=== PATIENT | male | born 1940 | race Caucasian/White ===

== ENCOUNTER → 2018-01-06 07:43 | Outpatient (CLI) | payer MEDICARE, SELFPAY ==
--- NOTE | 2018-01-06 07:45 | CT_ITS ---
STUDY: CT ABDOMEN AND PELVIS WITH CONTRAST REASON FOR EXAM: Male, 77 years old. History of prostate cancer. RADIATION DOSAGE (If Supplied By Facility): CTDIvol = ( 21.81 ) mGy, DLP = ( 1178.48 ) mGycm TECHNIQUE: Transaxial images were obtained from the dome of the diaphragm to the symphysis pubis without oral contrast. 100 ml of Isovue 300 contrast was administered. Sagittal and coronal images were reconstructed. Individualized dose optimization techniques were used for this CT. COMPARISON: Comparison is made with prior study dated February 23, 2014. FINDINGS: Calcified granuloma in the right lower lobe. Coronary artery calcification. There is decreased attenuation of the liver consistent with steatosis. Normal gallbladder and extrahepatic biliary system. Normal spleen. Normal pancreas. Normal bilateral adrenal glands. Normal right kidney. Normal left kidney. Normal visualized stomach. Normal small intestine. There are multiple colonic diverticula consistent with diverticulosis. The appendix is visualized and appears normal. There is diffuse atherosclerotic calcification of the abdominal aorta, without a demonstrated aneurysm. Normal inferior vena cava. Normal retroperitoneum. The bladder is not completely distended at time of the examination although there is evidence of diffuse bladder wall thickening. Radiation seeds are seen within the prostate. Normal abdominal wall. There are diffuse degenerative changes of the visualized lumbar spine. CT/Abdomen/Pelvis WITH Contrast IMPRESSION: Diffuse bladder wall thickening. 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 Sigmoid diverticulosis. Electronically Signed: Sanju Nix MD at 14:04 EST Tel [phone], Service support ,
[2018-01-06 07:55] LABS: CREATININE FINGERSTICK 0.9 mg/dL (0.70-1.30); EGFR FINGERSTICK > 60.0000 mL/min (>60)
== END ==
PROVIDERS: Family Provider Internal Medicine; PCP Internal Medicine; Visit Provider Urology
DX: C61 Malignant neoplasm of prostate (principal)
CPT/HCPCS: 74177; Q9967

== ENCOUNTER 2018-01-25 10:28 | Observation (INO) | payer MEDICARE, SELFPAY ==
[2018-01-25] VITALS (10 sets, daily range): BP systolic 127–154; BP diastolic 80–96; PULSE 78–120; RESP 14–20; TEMP 36.8–37.5; O2SAT 95–98; BMI 35.7
--- NOTE | 2018-01-25 10:50 | EKG12_ITS ---
Test Reason : DYSRHYTHMIA Blood Pressure : / mmHG Vent. Rate : 068 BPM Atrial Rate : 068 BPM P-R Int : 186 ms QRS Dur : 156 ms QT Int : 414 ms P-R-T Axes : 007 032 021 degrees QTc Int : 440 ms Sinus rhythm with sinus arrhythmia with occasional Premature ventricular complexes Right bundle branch block Abnormal ECG Confirmed by RAN IVERSON ([id number]), editor city AALIYAH AVALOS ([id number]) on 01/28/2018 1:21:29 PM Referred By: SARA Confirmed By:RAN IVERSON
[2018-01-25 11:13] LABS: Absolute Lymphocyte Count 1.25 X10^3/ul (0.83-4.51); Basophil# 0.04 X10^3/uL; Basophil% 0.6 % (0-1); Eosinophil# 0.33 X10^3/uL; Eosinophils% 4.9 % (0-5); Hematocrit 44.9 % (40-54); Hemoglobin 15.7 g/dl (13.0-16.5); Lymphocyte # 1.25 X10^3/ul (4.0); Lymphocyte % 18.5 % (19-41); Mean Corpuscular Hgb 31.2 pg (27.0-32.0); Mean Corpuscular Volume 89.3 fL (80-94); Monocyte# 1.13 X10^3/uL; Monocyte% 16.7 % (0-10); Neutrophil # 4.01 X10^3/uL (2.7-7.7); Neutrophil % 59.3 % (47-70); Platelet Count 190 K/mm3 (150-450); RBC Distribution Width CV 13.4 % (11.6-14.6); RBC Distribution Width SD 43.7 fl (35.1-43.9); Red Blood Count 5.03 M/mm3 (4.6-6.2); White Blood Count 6.8 K/mm3 (4.4-11.0)
[2018-01-25 11:15] LABS: POSITIVE COUNT NO; POSITIVE DIFFERENTIAL NO; POSITIVE MORPHOLOGY NO
[2018-01-25] MEDS: Ipratropium/Albuterol Sulfate 3 ML AMPUL.NEB INHALATION (11:16)
[2018-01-25] MEDS: Albuterol 2.5 MG/3 ML VIAL.NEB. INHALATION ×5 (11:16→23:10)
[2018-01-25] MEDS: MethylPREDNISolone 125 MG/2 ML Vial IV (11:19)
[2018-01-25 11:30] LABS: Anion Gap 8 (5-15); BUN 14 mg/dL (7-18); Calcium,Total 8.7 mg/dL (8.5-10.1); Chloride 104 mmol/L (98-107); EST Glomerular Filtration Rate 77 mL/min (>60); Est Glom Filt Rate - Afr Amer 93 mL/min (>60); Glucose 103 mg/dL (74-106); Potassium 3.9 mmol/L (3.5-5.1); Sodium Level 141 mmol/L (136-145)
[2018-01-25] MEDS: 0.9% Normal Saline 1,000 ML 150 ML IV (11:30)
--- NOTE | 2018-01-25 14:03 | RAD_ITS ---
STUDY: X-RAY CHEST REASON FOR EXAM: Male, 77 years old. Shortness of breath and dyspnea. TECHNIQUE: PA and lateral views of the chest. COMPARISON: March 20, 2016. FINDINGS: Cardiac monitoring leads are present. The lungs are expanded. There is right basilar infrahilar airspace disease and/or atelectasis. This could represent pneumonia. There is perihilar interstitial thickening present in both lungs. There is no demonstrated pleural abnormality. Normal size heart. Normal mediastinum and james. There is prominence of the pulmonary hilar arteries with peripheral pulmonary vascular congestion. There is atherosclerotic calcification of the aortic arch with tortuosity. There is demineralization of the osseous structures. There is increased thoracic kyphosis. There appears be decreased height of several thoracic vertebral bodies probably secondary to mild compression fractures. There are multilevel degenerative changes of the thoracic spine. Normal visualized ribs, clavicles, and shoulders. There is no demonstrated abnormality of the visualized soft tissue structures of the upper abdomen. RAD/Chest PA and Lateral IMPRESSION: 1. Mild pulmonary congestion. 2. Questionable right-sided infrahilar airspace disease could represent pneumonia. Electronically Signed: Janet Romano MD at 15:31 EST , Service support ,
--- NOTE | 2018-01-25 14:42 | ED.VISSUMM ---
- ER Visit Summary Date of Service: 01/25/18 Chief Complaint: [Shortness of breath] History of Present Illness: The patient is a 77 M [presents to the emergency department with shortness of breath ?5 or 6 days. Patient does have a cough is been coughing some cream-colored sputum. Patient states that he initially started with symptoms of agitation and not been able sleep at night followed by cough. Patient does not think he has had a fever. Patient does describe some chest tightness. He has not had any body aches. Patient denies recent travel or surgery.] Physical Examination: [HEENT-PERRLA, EOMI. Cranial nerves II through XII grossly intact. TMs clear. Mucous membranes moist. No adenopathy. Cardiovascular-regular rate and rhythm without murmur or ectopy Lungs-decreased breath sounds bilaterally with expiratory wheezes in all lung mendoza. Patient is tachypneic. No accessory muscle use or retractions. Abdomen-normoactive bowel sounds, soft, nontender, no rebound or rigidity, no peritoneal signs. Extremities-intact ?4, normal range of motion, normal pulses, atraumatic] Test Results: [EKG shows sinus rhythm with no acute ST segment changes. CBC with it was normal. Chemistries unremarkable. Influenza was negative. Troponin was less than 0.02.] Emergency Department Course and Treatment: [Patient was medicated with DuoNeb aerosol followed by albuterol aerosols. Patient was given Solu-Medrol 125 mill grams IV. Chest x-ray obtained read by myself as hyperinflation and increased markings in the right middle lobe] Treatment Plan: [Patient continues to wheeze and was ordered another albuterol aerosol. Patient continues to feel dyspneic.] Disposition: [Admit] Impression: [Asthmatic bronchitis] This note was generated with [employer] dictation software. It may contain incorrect words, spelling, and punctuation that were not noted in review of the chart prior to signing ED Disposition - Plan for ED Patient: Chief Complaint: Shortness of Breath Referrals: Maureen Martinez DO [Primary Care Provider] -
--- NOTE | 2018-01-25 14:55 | NURSING ---
DR DORMAN FOR DR RUIZ
--- NOTE | 2018-01-25 15:42 | NURSING ---
MED SURG OBS ASTHMA, BRONCHITIS JEFFREYELETSKY
--- NOTE | 2018-01-25 17:19 | PCM.HP.STD ---
Problem List (1) Wheezing Status: Acute (2) Productive cough Status: Acute History of Present Illness Date of Admission: 01/25/18 Chief Complaint: Wheezing, productive cough, shortness of breath The patient is a 77 year old M was seen in the emergency room at [facility] with chief complaint of cough productive of green phlegm intermittently, wheezing, and some shortness of breath. Symptoms started on Saturday of this week. Patient denies any fever or chills. Patient has a history of asthma and uses a Symbicort inhaler but he does not use this daily, only intermittently. 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 Evaluation in the emergency room included a chest x-ray which showed a chronic scarred area in the right lung, CBC was unremarkable, chemistry profile was unremarkable. Patient's pulse ox on room air was 95%. Patient was given 2 aerosol treatments and IV Solu-Medrol, hospitalist service was called for admission, I interviewed the patient and he still appear to have marked expiratory wheezes bilaterally. Patient was walked in the holliday without oxygen but did not drop below 93%. Patient will be admitted for flareup of asthma and acute bacterial bronchitis. Past Medical History Past Medical History (Chronic Problems): Chronic Problems (Last Reviewed 01/24/18 @ 09:17 by Chiquita Irving) Stented coronary artery (Chronic) PTCA of proximal LAD with VINNIE, 2010 - 03/23/16 Transferred to [facility] for IVUS & VINNIE to prox. RCA History of left heart catheterization (Chronic) 12/11/2010 @ [facility] per Dr. Bowser, 03/23/2016 @ [facility] per Dr. 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) Paroxysmal supraventricular tachycardia by electrocardiogram (ECG) (Chronic) [facility] use of drug (Chronic) Premature ventricular contractions (Chronic) Status post radiofrequency ablation for arrhythmia (Chronic) Bilateral carotid bruits (Chronic) Atrial fibrillation (Chronic) Prostate cancer (Chronic) Palpitations (Chronic) History of coronary artery stent placement (Chronic) Allergies rosuvastatin [From Crestor] Adverse Reaction (Severe, Verified 01/25/18 10:33) Myalgias atorvastatin Adverse Reaction (Intermediate, Verified 01/25/18 10:33) Can't Sleep Home Medications: Ambulatory Orders Medication Instructions Recorded Aspirin 325 mg PO DAILY@0800 12/05/14 Calcium Carb/Vitamin D 1 tab PO DAILY@0803/22/16 [Caltrate-600 With Vit D Tab] Nitroglycerin [Nitrostat] 0.4 mg SUBLINGUAL Q5M PRN 03/22/16 Selenium [Selenium] 200 mcg PO DAILY 04/24/16 albuterol sulfate HFA 90 1 puff INHALATION Q4H PRN g 01/24/18 mcg/actuation aerosol inhaler multivitamin tablet 1 tab PO QDAY 01/24/18 omega-3 fatty acids 1,000 mg 2,000 mg PO QDAY cap 01/24/18 capsule Surgical History: appendectomy, - - Treatment for prostate cancer with radiation implant seeds. Coronary artery stent placement, ablation for tachyarrhythmia Psychiatric History: No pertinent psych hx Smoking Status: Never smoker Tobacco Use: Non-smoker Alcohol: None Drugs: None - *Family History Maternal History Items: Heart Disease Paternal History Items: Unknown Review of Systems Constitutional: Reports: Fatigue. Denies: Anorexia, Chills, Fever, Night Sweats, Malaise, Weakness, Weight Change Eyes: Denies: Blurred vision, Cataracts, Conjunctivae Inflammation, Double vision, Drainage HEENT: Denies: Difficulty Swallowing, Dysphasia, Ear Pain, Eye Pain, Head Aches, Hearing Changes, Nasal bleeding, Nasal Congestion, Post Nasal Drip Cardiovascular: Denies: Chest Pain, Claudication, Chest Pressure, Chest Tightness, Edema, Heaviness, Light Headedness Respiratory: Reports: Cough, Shortness of Breath, Shortness of breath upon exertion, Sputum production, Wheezing. Denies: Hemoptysis, Pleuritic Pain, Shortness of breath at rest Gastrointestinal: Denies: Abdominal Pain, Constipation, Diarrhea, Hematemesis, Hematochezia, Nausea, Vomiting Genitourinary: Denies: Dysuria, Frequency, Hematuria, Incontinence, Nocturia, Retention Musculoskeletal: Denies: Back Pain, Foot Pain, Hand Pain, Joint stiffness, Joint swelling, Joint Tenderness, Leg Pain Skin: Denies: Dryness, Jaundice, Pruritis, Rash Neurological: Denies: Balance problems, Blurred vision, Double vision, Change in Speech, Difficulty swallowing, Focal weakness, Headaches, Incoordination Psychiatric: Denies: Anxiety, Depression Endocrine: Denies: Change in Body Habitus, Heat/ Cold Intolerance, Polyuria Hematologic/ Lymphatic: Denies: Adenopathy, Anemia, Easy Bruising, Petechiae, Purpura VTE Information - Inpt Only VTE Present on Admission: No VTE Mechan Device Prophylaxis: None VTE Pharm Prophylaxis ordered?: Yes Patient Problems: Active and Suspected Problems (Last Reviewed 01/24/18 @ 09:17 by Chiquita Irving) Wheezing (Acute) Productive cough (Acute) - Physical Exam General: Alert, Oriented x3, Cooperative, No apparent distress, Well developed, Well nourished HEENT: Atraumatic, PERRLA, EOMI, Normocephalic Oral: Moist Mucosa Neck: Supple, No JVD, Negative Carotid Bruits, No Nuchal Rigidity, Trachea Midline, Thyroid Normal Size and Texture Lungs: No rhonchi, No rales, Diminished, Wheezes - Expiratory wheezes are noted bilaterally Cardiovascular: Regular rate, Regular Rhythm, Normal S1, Normal S2, No murmurs, No Ectopic Activity, PMI Normal, No rub noted, No Gallop Abdomen: Bowel Sounds Present, Soft, Non Tender, Non-Distended, No hernias noted Extremities: No clubbing, No cyanosis, No edema, Capillary Refill Less than 3 Seconds Skin: No rashes, No breakdown Musculoskeletal: No Tenderness to Palpation of Joints or Extremities Neurological: Cranial nerves II-XII grossly intact, Neuro grossly intact, Sensory exam intact to light touch and pain, Coordination normal Psych/Mental Status: Normal Affect, Appropriate, Alert and oriented to time, place, person, mood and affect Vital Signs Temp Pulse Resp BP Pulse Ox 99.5 F H 118 H 15 151/89 H 96 01/25/18 10:28 01/25/18 15:45 01/25/18 15:45 01/25/18 15:45 01/25/18 15:45 Oxygen Flow Rate 2 Oxygen Delivery Method Nasal Cannula Weight: 106.594 kg Body Mass Index (BMI) 35.7 Assessment/Plan Active and Suspected Problems (Last Reviewed 01/24/18 @ 09:17 by Chiquita Irving) Wheezing (Acute) Productive cough (Acute) #1 flareup of asthma-patient will be placed in observation status, he will be given aerosol treatments, IV Solu-Medrol, and monitored. Patient is currently not hypoxic #2 acute bacterial bronchitis-patient will be placed on Zithromax 500 mg daily by mouth #3 coronary artery disease-stable at this time #4 history of cardiac arrhythmias with ablation-patient's monitor shows isolated PVCs which are unifocal today, he does see a assistant professor surgical technology Dr. Bowser. Patient states he sees him on a chronic basis. Code Visit OBSV E&M: 83530 Initial observation care L3
--- NOTE | 2018-01-25 17:29 | HP.PCM_ITS ---
Problem List (1) Wheezing Status: Acute (2) Productive cough Status: Acute History of Present Illness Date of Admission: 01/25/18 Chief Complaint: Wheezing, productive cough, shortness of breath The patient is a 77 year old M was seen in the emergency room at [facility] with chief complaint of cough productive of green phlegm intermittently, wheezing, and some shortness of breath. Symptoms started on Saturday of this week. Patient denies any fever or chills. Patient has a history of asthma and uses a Symbicort inhaler but he does not use this daily, only intermittently. 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 Evaluation in the emergency room included a chest x-ray which showed a chronic scarred area in the right lung, CBC was unremarkable, chemistry profile was unremarkable. Patient's pulse ox on room air was 95%. Patient was given 2 aerosol treatments and IV Solu-Medrol, hospitalist service was called for admission, I interviewed the patient and he still appear to have marked expiratory wheezes bilaterally. Patient was walked in the holliday without oxygen but did not drop below 93%. Patient will be admitted for flareup of asthma and acute bacterial bronchitis. Past Medical History Past Medical History (Chronic Problems): Chronic Problems (Last Reviewed 01/24/18 @ 09:17 by Chiquita Irving) Stented coronary artery (Chronic) PTCA of proximal LAD with VINNIE, 2010 - 03/23/[address] [facility] for IVUS & VINNIE to prox. RCA History of left heart catheterization (Chronic) 12/11/[address] [facility] per Dr. Bowser, 03/23/[address] [facility] per Dr. Bowser (each cath followed by PTCA) Hyperlipidemia (Chronic) Old myocardial infarction (Chronic) Atherosclerotic heart disease of [place] coronary artery without angina pectoris (Chronic) Paroxysmal supraventricular tachycardia by electrocardiogram (ECG) (Chronic) [facility] use of drug (Chronic) Premature ventricular contractions (Chronic) Status post radiofrequency ablation for arrhythmia (Chronic) Bilateral carotid bruits (Chronic) Atrial fibrillation (Chronic) Prostate cancer (Chronic) Palpitations (Chronic) History of coronary artery stent placement (Chronic) Allergies rosuvastatin [From Crestor] Adverse Reaction (Severe, Verified 01/25/18 10:33) Myalgias atorvastatin Adverse Reaction (Intermediate, Verified 01/25/18 10:33) Can't Sleep Home Medications: Ambulatory Orders Medication Instructions Recorded Aspirin 325 mg PO DAILY@0800 12/05/14 Calcium Carb/Vitamin D 1 tab PO DAILY@0803/22/16 [Caltrate-600 With Vit D Tab] Nitroglycerin [Nitrostat] 0.4 mg SUBLINGUAL Q5M PRN 03/22/16 Selenium [Selenium] 200 mcg PO DAILY 04/24/16 albuterol sulfate HFA 90 1 puff INHALATION Q4H PRN g 01/24/18 mcg/actuation aerosol inhaler multivitamin tablet 1 tab PO QDAY 01/24/18 omega-3 fatty acids 1,000 mg 2,000 mg PO QDAY cap 01/24/18 capsule Surgical History: appendectomy, - - Treatment for prostate cancer with radiation implant seeds. Coronary artery stent placement, ablation for tachyarrhythmia Psychiatric History: No pertinent psych hx Smoking Status: Never smoker Tobacco Use: Non-smoker Alcohol: None Drugs: None - *Family History Maternal History Items: Heart Disease Paternal History Items: Unknown Review of Systems Constitutional: Reports: Fatigue. Denies: Anorexia, Chills, Fever, Night Sweats , Malaise, Weakness, Weight Change Eyes: Denies: Blurred vision, Cataracts, Conjunctivae Inflammation, Double vision, Drainage HEENT: Denies: Difficulty Swallowing, Dysphasia, Ear Pain, Eye Pain, Head Aches , Hearing Changes, Nasal bleeding, Nasal Congestion, Post Nasal Drip Cardiovascular: Denies: Chest Pain, Claudication, Chest Pressure, Chest Tightness, Edema, Heaviness, Light Headedness Respiratory: Reports: Cough, Shortness of Breath, Shortness of breath upon exertion, Sputum production, Wheezing. Denies: Hemoptysis, Pleuritic Pain, Shortness of breath at rest Gastrointestinal: Denies: Abdominal Pain, Constipation, Diarrhea, Hematemesis, Hematochezia, Nausea, Vomiting Genitourinary: Denies: Dysuria, Frequency, Hematuria, Incontinence, Nocturia, Retention Musculoskeletal: Denies: Back Pain, Foot Pain, Hand Pain, Joint stiffness, Joint swelling, Joint Tenderness, Leg Pain Skin: Denies: Dryness, Jaundice, Pruritis, Rash Neurological: Denies: Balance problems, Blurred vision, Double vision, Change in Speech, Difficulty swallowing, Focal weakness, Headaches, Incoordination Psychiatric: Denies: Anxiety, Depression Endocrine: Denies: Change in Body Habitus, Heat/ Cold Intolerance, Polyuria Hematologic/ Lymphatic: Denies: Adenopathy, Anemia, Easy Bruising, Petechiae, Purpura VTE Information - Inpt Only VTE Present on Admission: No VTE Mechan Device Prophylaxis: None VTE Pharm Prophylaxis ordered?: Yes Patient Problems: Active and Suspected Problems (Last Reviewed 01/24/18 @ 09:17 by Chiquita Irving) Wheezing (Acute) Productive cough (Acute) - Physical Exam General: Alert, Oriented x3, Cooperative, No apparent distress, Well developed, Well nourished HEENT: Atraumatic, PERRLA, EOMI, Normocephalic Oral: Moist Mucosa Neck: Supple, No JVD, Negative Carotid Bruits, No Nuchal Rigidity, Trachea Midline, Thyroid Normal Size and Texture Lungs: No rhonchi, No rales, Diminished, Wheezes - Expiratory wheezes are noted bilaterally Cardiovascular: Regular rate, Regular Rhythm, Normal S1, Normal S2, No murmurs, No Ectopic Activity, PMI Normal, No rub noted, No Gallop Abdomen: Bowel Sounds Present, Soft, Non Tender, Non-Distended, No hernias noted Extremities: No clubbing, No cyanosis, No edema, Capillary Refill Less than 3 Seconds Skin: No rashes, No breakdown Musculoskeletal: No Tenderness to Palpation of Joints or Extremities Neurological: Cranial nerves II-XII grossly intact, Neuro grossly intact, Sensory exam intact to light touch and pain, Coordination normal Psych/Mental Status: Normal Affect, Appropriate, Alert and oriented to time, place, person, mood and affect Vital Signs Temp Pulse Resp BP Pulse Ox 99.5 F H 118 H 15 151/89 H 96 01/25/18 10:28 01/25/18 15:45 01/25/18 15:45 01/25/18 15:45 01/25/18 15:45 Oxygen Flow Rate 2 Oxygen Delivery Method Nasal Cannula Weight: 106.594 kg Body Mass Index (BMI) 35.7 Assessment/Plan Active and Suspected Problems (Last Reviewed 01/24/18 @ 09:17 by Chiquita Irving) Wheezing (Acute) Productive cough (Acute) #1 flareup of asthma-patient will be placed in observation status, he will be given aerosol treatments, IV Solu-Medrol, and monitored. Patient is currently not hypoxic #2 acute bacterial bronchitis-patient will be placed on Zithromax 500 mg daily by mouth #3 coronary artery disease-stable at this time #4 history of cardiac arrhythmias with ablation-patient's monitor shows isolated PVCs which are unifocal today, he does see a filler shredder Dr. Bowser. Patient states he sees him on a chronic basis. Code Visit OBSV E&M: 94041 Initial observation care L3
[2018-01-25] MEDS: Azithromycin 250 MG Tablet 500 MG PO (18:36)
[2018-01-25] MEDS: Heparin Injection 5,000 UNITS/ML Syringe 5000 UNITS SC (22:37)
[2018-01-26] VITALS (9 sets, daily range): BP systolic 110–126; BP diastolic 59–71; PULSE 106–110; RESP 16–24; TEMP 36.4–36.9; O2SAT 91–98
[2018-01-26] MEDS: Albuterol 2.5 MG/3 ML VIAL.NEB. INHALATION ×4 (02:30→13:18)
[2018-01-26] MEDS: Heparin Injection 5,000 UNITS/ML Syringe 5000 UNITS SC ×2 (06:04→14:47)
[2018-01-26] MEDS: guaiFENesin/Codeine 5 ML UDC 10 ML PO (06:10)
[2018-01-26] MEDS: Aspirin 325 MG Tablet PO (08:39)
[2018-01-26] MEDS: Azithromycin 250 MG Tablet 500 MG PO (08:39)
--- NOTE | 2018-01-26 11:34 | RAD_ITS ---
STUDY: X-RAY CHEST REASON FOR EXAM: Male, 77 years old. Dyspnea. TECHNIQUE: PA and lateral views of the chest. COMPARISON: January 25, 2018. FINDINGS: The lungs are expanded. There is a apparent right basilar airspace consolidation and/or atelectasis. There is perihilar interstitial thickening and peribronchial cuffing. There is no demonstrated pleural abnormality. Normal size heart. There are calcified mediastinal and hilar lymph nodes. There is prominence of the pulmonary hilar arteries without peripheral pulmonary vascular congestion. There is atherosclerotic calcification of the aortic arch with tortuosity. There is demineralization of the osseous structures. There is increased thoracic kyphosis. Normal visualized ribs, clavicles, and shoulders. There is no demonstrated abnormality of the visualized soft tissue structures of the upper abdomen. RAD/Chest PA and Lateral IMPRESSION: Right basilar airspace consolidation and/or atelectasis. Electronically Signed: Janet Romano MD at 15:38 EST , Service support ,
--- NOTE | 2018-01-26 15:28 | PCM.DC ---
- Discharge Diagnoses Current Active Problems: Current Active and Chronic Problems (Last Reviewed 01/24/18 @ 09:17 by Chiquita Irving) Wheezing (Acute) Productive cough (Acute) You will use the following diet at home:: No restrictions Your food should be the consistency of: Regular Your liquids should be the consistency of: Regular/Thin Discharge Activity: Return to Normal Activity - as tolerated Additional Instructions: resume Symbicort inhaler twice daily after you finish out Prednisone Allergies/Adverse Reactions: Allergies rosuvastatin [From Crestor] Adverse Reaction (Severe, Verified 01/25/18 10:33) Myalgias atorvastatin Adverse Reaction (Intermediate, Verified 01/25/18 10:33) Can't Sleep Medications to take at Discharge Aspirin 325 mg PO DAILY@0800 12/05/14 Calcium Carb/Vitamin D [Caltrate-600 With Vit D Tab] 1 tab PO DAILY@0800 03/22/16 Nitroglycerin [Nitrostat] 0.4 mg SUBLINGUAL Q5M PRN 03/22/16 Selenium 200 mcg PO DAILY 04/24/16 multivitamin tablet 1 tab PO QDAY 01/24/18 omega-3 fatty acids 1,000 mg capsule 2,000 mg PO QDAY cap 01/24/18 Acetaminophen [Tylenol Tablet] 650 mg PO Q6H PRN PRN tablet 01/26/18 Albuterol Sulfate [Ventolin Hfa] 2 puff INHALATION TID #1 g 01/26/18 Azithromycin [Zithromax] 500 mg PO Q24 #2 tab 01/26/18 Guaifenesin/Codeine [Robitussin AC] 10 ml PO Q6H PRN PRN udc 01/26/18 Prednisone 10 mg PO UD #14 tab 01/26/18 The following prescriptions were given: Azithromycin [Zithromax] 500 mg PO Q24 #2 tab Prednisone 10 mg PO UD #14 tab Albuterol Sulfate [Ventolin Hfa] 2 puff INHALATION TID #1 g Primary Care Physician: Maureen Martinez DO [Primary Care Provider] - Please follow up with your Primary Care Physician in: this week
--- NOTE | 2018-01-26 22:00 | PCM.DC.SUM ---
Discharge Date and Diagnosis Date of Admission: 01/25/18 Date of Discharge: 01/26/18 - Primary Discharge Diagnosis #1 acute flareup of asthma #2 acute bacterial bronchitis #3 coronary artery disease #4 unifocal PVCs - Secondary Discharge Diagnosis Chronic Problems (Last Reviewed 01/24/18 @ 09:17 by Chiquita Irving) Stented coronary artery (Chronic) PTCA of proximal LAD with VINNIE, 2010 - 03/23/[address] [facility] for IVUS & VINNIE to prox. RCA History of left heart catheterization (Chronic) 12/11/2010 @ [facility] per Dr. Bowser, 03/23/2016 @ [facility] per Dr. Bowser (each cath followed by PTCA) Hyperlipidemia (Chronic) Old myocardial infarction (Chronic) Atherosclerotic heart disease of [place] coronary artery without angina pectoris (Chronic) Paroxysmal supraventricular tachycardia by electrocardiogram (ECG) (Chronic) [facility] use of drug (Chronic) Premature ventricular contractions (Chronic) Status post radiofrequency ablation for arrhythmia (Chronic) Bilateral carotid bruits (Chronic) Atrial fibrillation (Chronic) Prostate cancer (Chronic) Palpitations (Chronic) History of coronary artery stent placement (Chronic) Hospital Course and Treatment Operations: None Procedures: None Summary of Care Provided: The patient is a 77 year old M seen in the emergency room at [facility] with chief complaint of wheezing and shortness of breath which had occurred a few days prior to his emergency room visit. Patient states he was intermittently coughing up yellow sputum, he denied any chest pain or hemoptysis. Examination in the emergency room revealed the patient was wheezing quite markedly on examination, he was given 2 aerosol treatments and IV Solu-Medrol with minimal improvement on his wheezing. Patient had unifocal PVCs noted on the monitor which was felt in part to be secondary to multiple aerosol treatments. Patient was walked in the emergency room without oxygen and his oxygen saturation never dropped below 93%. Patient was placed in observation status on MedSurg 3 for acute flareup of asthma and acute bacterial bronchitis, he was given p.o. Zithromax, IV Solu-Medrol, and aggressive aerosol treatments. Patient improved during his hospital stay, on 01/26/18, patient was seen and examined, he did have residual wheezing left but he was much improved from admission. Patient was given a spacer device to use for his prescribed pro-air HFA inhaler. On 01/26/18, patient was seen and examined felt to be in stable condition for discharge, he was not hypoxic on room air at the time of discharge Discharge Activity: Return to Normal Activity - as tolerated Home Medications: Medications to take at Discharge Aspirin 325 mg PO DAILY@0800 12/05/14 Calcium Carb/Vitamin D [Caltrate-600 With Vit D Tab] 1 tab PO DAILY@0800 03/22/16 Nitroglycerin [Nitrostat] 0.4 mg SUBLINGUAL Q5M PRN 03/22/16 Selenium 200 mcg PO DAILY 04/24/16 multivitamin tablet 1 tab PO QDAY 01/24/18 omega-3 fatty acids 1,000 mg capsule 2,000 mg PO QDAY cap 01/24/18 Acetaminophen [Tylenol Tablet] 650 mg PO Q6H PRN PRN tablet 01/26/18 Albuterol Sulfate [Ventolin Hfa] 2 puff INHALATION TID #1 g 01/26/18 Azithromycin [Zithromax] 500 mg PO Q24 #2 tab 01/26/18 Guaifenesin/Codeine [Robitussin AC] 10 ml PO Q6H PRN PRN udc 01/26/18 Prednisone 10 mg PO UD #14 tab 01/26/18 Following Prescrptions Were Given to Patient: Azithromycin [Zithromax] 500 mg PO Q24 #2 tab Prednisone 10 mg PO UD #14 tab Albuterol Sulfate [Ventolin Hfa] 2 puff INHALATION TID #1 g Primary Care Physician: Maureen Martinez DO [Primary Care Provider] - Please follow up with your Primary Care Physician in: this week Disposition: Home Minutes spent on discharge:: 25 Patient Condition:: Stable Meaningful Use Info Meaningful Use Diagnoses (Choose all that apply): None applicable Code Visit OBSV E&M: 65523 Observation care discharge
--- NOTE | 2018-01-26 22:05 | DS.PCM_ITS ---
Discharge Date and Diagnosis Date of Admission: 01/25/18 Date of Discharge: 01/26/18 - Primary Discharge Diagnosis #1 acute flareup of asthma #2 acute bacterial bronchitis #3 coronary artery disease #4 unifocal PVCs - Secondary Discharge Diagnosis Chronic Problems (Last Reviewed 01/24/18 @ 09:17 by Chiquita Irving) Stented coronary artery (Chronic) PTCA of proximal LAD with VINNIE, 2010 - 03/23/16 Transferred to [facility] for IVUS & VINNIE to prox. RCA History of left heart catheterization (Chronic) 12/11/2010 @ [facility] per Dr. Bowser, 03/23/2016 @ [facility] per Dr. Bowser (each cath followed by PTCA) Hyperlipidemia (Chronic) Old myocardial infarction (Chronic) Atherosclerotic heart disease of [place] coronary artery without angina pectoris (Chronic) Paroxysmal supraventricular tachycardia by electrocardiogram (ECG) (Chronic) [facility] use of drug (Chronic) Premature ventricular contractions (Chronic) Status post radiofrequency ablation for arrhythmia (Chronic) Bilateral carotid bruits (Chronic) Atrial fibrillation (Chronic) Prostate cancer (Chronic) Palpitations (Chronic) History of coronary artery stent placement (Chronic) Hospital Course and Treatment Operations: None Procedures: None Summary of Care Provided: The patient is a 77 year old M seen in the emergency room at [facility] with chief complaint of wheezing and shortness of breath which had occurred a few days prior to his emergency room visit. Patient states he was intermittently coughing up yellow sputum, he denied any chest pain or hemoptysis. Examination in the emergency room revealed the patient was wheezing quite markedly on examination, he was given 2 aerosol treatments and IV Solu-Medrol with minimal improvement on his wheezing. Patient had unifocal PVCs noted on the monitor which was felt in part to be secondary to multiple aerosol treatments. Patient was walked in the emergency room without oxygen and his oxygen saturation never dropped below 93%. Patient was placed in observation status on MedSurg 3 for acute flareup of asthma and acute bacterial bronchitis, he was given p.o. Zithromax, IV Solu-Medrol, and aggressive aerosol treatments. Patient improved during his hospital stay, on 01/26/18, patient was seen and examined, he did have residual wheezing left but he was much improved from admission. Patient was given a spacer device to use for his prescribed pro -air HFA inhaler. On 01/26/18, patient was seen and examined felt to be in stable condition for discharge, he was not hypoxic on room air at the time of discharge Discharge Activity: Return to Normal Activity - as tolerated Home Medications: Medications to take at Discharge Aspirin 325 mg PO DAILY@0800 12/05/14 Calcium Carb/Vitamin D [Caltrate-600 With Vit D Tab] 1 tab PO DAILY@0800 Nitroglycerin [Nitrostat] 0.4 mg SUBLINGUAL Q5M PRN 03/22/16 Selenium 200 mcg PO DAILY 04/24/16 multivitamin tablet 1 tab PO QDAY 01/24/18 omega-3 fatty acids 1,000 mg capsule 2,000 mg PO QDAY cap 01/24/18 Acetaminophen [Tylenol Tablet] 650 mg PO Q6H PRN PRN tablet 01/26/18 Albuterol Sulfate [Ventolin Hfa] 2 puff INHALATION TID #1 g 01/26/18 Azithromycin [Zithromax] 500 mg PO Q24 #2 tab 01/26/18 Guaifenesin/Codeine [Robitussin AC] 10 ml PO Q6H PRN PRN udc 01/26/18 Prednisone 10 mg PO UD #14 tab 01/26/18 Following Prescrptions Were Given to Patient: Azithromycin [Zithromax] 500 mg PO Q24 #2 tab Prednisone 10 mg PO UD #14 tab Albuterol Sulfate [Ventolin Hfa] 2 puff INHALATION TID #1 g Primary Care Physician: Maureen Martinez DO [Primary Care Provider] - Please follow up with your Primary Care Physician in: this week Disposition: Home Minutes spent on discharge:: 25 Patient Condition:: Stable Meaningful Use Info Meaningful Use Diagnoses (Choose all that apply): None applicable Code Visit OBSV E&M: 72356 Observation care discharge
== END 2018-01-26 16:39 | disposition home or self-care (01) ==
LOC: ED 11:28 → MS3 16:16
PROVIDERS: Admitting Provider Internal Medicine; Emergency Provider Emergency Medicine; Family Provider Internal Medicine; PCP Internal Medicine; Visit Provider Internal Medicine
DX: J45.901 Unspecified asthma with (acute) exacerbation (principal); I25.10 Atherosclerotic heart disease of native coronary artery without angina pectoris; J20.9 Acute bronchitis, unspecified; I49.3 Ventricular premature depolarization; I48.2 Chronic atrial fibrillation; E78.5 Hyperlipidemia, unspecified; I25.2 Old myocardial infarction; R09.89 Other specified symptoms and signs involving the circulatory and respiratory systems; Z79.899 Other long term (current) drug therapy; Z85.46 Personal history of malignant neoplasm of prostate; Z95.5 Presence of coronary angioplasty implant and graft; Z79.82 Long term (current) use of aspirin
CPT/HCPCS: 71046; 80048; 84484; 85025; 87040; 87804; 93005; 94640; 96361; 96372; 96374; 96376; 99218; 99285; A4216; G0378

== ENCOUNTER 2018-01-28 10:27 | Inpatient (IN) | payer MEDICARE, SELFPAY ==
[2018-01-28] VITALS (17 sets, daily range): BP systolic 124–142; BP diastolic 67–89; PULSE 89–110; RESP 15–24; TEMP 36.6–37.2; O2SAT 94–97; BMI 36.5; BMI 35.5; BMI 35.6
--- NOTE | 2018-01-28 10:54 | EKG12_ITS ---
Test Reason : SOB Blood Pressure : / mmHG Vent. Rate : 098 BPM Atrial Rate : 098 BPM P-R Int : 174 ms QRS Dur : 144 ms QT Int : 376 ms P-R-T Axes : 038 029 019 degrees QTc Int : 480 ms Sinus rhythm with occasional Premature ventricular complexes Right bundle branch block Abnormal ECG Confirmed by MARCELA WAGNER, XU ([id number]), school photograph editor AALIYAH AVALOS ([id number]) on 01/29/2018 2:22:33 PM Referred By: COTY Confirmed By:XU MEDRANO MD
--- NOTE | 2018-01-28 11:00 | RAD_ITS ---
STUDY: X-RAY CHEST REASON FOR EXAM: Male, 77 years old. Shortness of breath. Wheezing and dyspnea. TECHNIQUE: Single AP portable view of the chest. COMPARISON: Comparison is made with prior study dated January 26, 2018. FINDINGS: EKG electrodes are seen. Persistent mild increased markings at the lung bases suggestive of bibasilar atelectasis and/or infiltrates. These have progressed as compared to prior study. There is no demonstrated pleural abnormality. Normal size heart. Normal mediastinum and james. Normal visualized pulmonary arteries. There is atherosclerotic calcification of the aortic arch with tortuosity. There are diffuse degenerative changes of the visualized thoracic spine. Normal visualized ribs, clavicles, and shoulders. There is no demonstrated abnormality of the visualized soft tissue structures of the upper abdomen. RAD/Chest 1 View (Portable) IMPRESSION: Since prior study, there has been progressive atelectasis and/or infiltrate at the lung bases. Electronically Signed: Sanju Nix MD at 11:36 EST Tel [phone], Service support ,
[2018-01-28 11:15] LABS: Absolute Lymphocyte Count 1.13 X10^3/ul (0.83-4.51); Absolute Neutrophil Count 13.9 X10^3/uL (2.0-7.7); Basophil# 0.01 X10^3/uL; Basophil% 0.1 % (0-1); Hematocrit 45.5 % (40-54); Hemoglobin 15.4 g/dl (13.0-16.5); Lymphocyte # 1.13 X10^3/ul (4.0); Mean Corp Hgb Conc 33.8 g/gl (32-36); Mean Corpuscular Hgb 30.4 pg (27.0-32.0); Mean Corpuscular Volume 89.9 fL (80-94); Mean Platelet Vol. 9.4 fl (6.2-12.0); Monocyte# 0.99 X10^3/uL; Monocyte% 6.1 % (0-10); Neutrophil # 13.91 X10^3/uL (2.7-7.7); Neutrophil % 86.4 % (47-70); Platelet Count 174 K/mm3 (150-450); RBC Distribution Width CV 13.8 % (11.6-14.6); RBC Distribution Width SD 45.4 fl (35.1-43.9); Red Blood Count 5.06 M/mm3 (4.6-6.2); White Blood Count 16.1 K/mm3 (4.4-11.0)
--- NOTE | 2018-01-28 11:15 | ED.VISSUMM ---
- ER Visit Summary Date of Service: 01/28/18 Chief Complaint: Cough and shortness of breath History of Present Illness: The patient is a 77 M with a history of coronary disease and asthma. He was recently admitted to the hospital for an upper respiratory infection. He went home 2 days ago. He has had increasing cough and shortness of breath. He was referred to the emergency department today because of concerns for CHF. He has a history of coronary disease and a stent. He denies any chest pain. Denies fevers. Physical Examination: Vital signs unremarkable. Afebrile. Respiratory rate 24. 96% on a nasal cannula. Lungs show wheezing with expiration throughout all [place]. This is mild. Heart is regular. Patient has trace lower extremity pitting edema. This is symmetric. Skin appears normal in color without diaphoresis or pallor. He is alert and oriented. Test Results: Blood cultures and influenza testing from January 25 were negative. We will check EKG, chest x-ray, labs, troponin, BNP here. Emergency Department Course and Treatment: I was concerned for CHF. ACS and PE are much less likely given no classic signs or symptoms. I was also concern for respiratory causes. His influenza testing was negative recently. Will check a chest x-ray. He received breathing treatments. Chest x-ray showed progressive atelectasis versus infiltrate bilaterally. His EKG, troponin, and BNP were unremarkable. I do not suspect that this is from an underlying cardiac cause. His white count is 16. He is on steroids. He seems to be doing better after breathing treatment. He is satting well on a nasal cannula. His breathing is less labored. Cultures and influenza testing are pending at the time of this dictation. I did start Zosyn and vancomycin. I believe this is a respiratory infection, and less likely to be related to a cardiac cause like CHF. Because he is doing worse on outpatient therapy, I feel that he will need inpatient care. I spoke with the hospitalist who will admit. Treatment Plan: Above Disposition: Admission Impression: 1. HCAP This note was generated with [employer] dictation software. It may contain incorrect words, spelling, and punctuation that were not noted in review of the chart prior to signing ED Disposition - Plan for ED Patient: Chief Complaint: Shortness of Breath Referrals: Maureen Martinez DO [Primary Care Provider] -
[2018-01-28 11:17] LABS: POSITIVE COUNT NO; POSITIVE DIFFERENTIAL NO; POSITIVE MORPHOLOGY NO
[2018-01-28] MEDS: Ipratropium/Albuterol Sulfate 3 ML AMPUL.NEB INHALATION ×2 (11:18→15:07)
[2018-01-28 11:37] LABS: AST(SGOT) 40 U/L (15-37); Alanine Aminotransfer ALT/SGPT 44 U/L (16-61); Albumin, Serum 3.5 g/dL (3.2-5.0); Alkaline Phosphatase 83 U/L (45-117); Anion Gap 9 (5-15); BUN 25 mg/dL (7-18); BUN/Creat Ratio 25.5 RATIO (10-20); Calcium,Total 8.4 mg/dL (8.5-10.1); Chloride 104 mmol/L (98-107); Creatinine, Serum 0.98 mg/dL (0.70-1.30); EST Glomerular Filtration Rate 79 mL/min (>60); Est Glom Filt Rate - Afr Amer 95 mL/min (>60); Estimated Creatinine Clearance 62.04 ml/min; Globulin 3.6 g/dL (2.2-4.2); Glucose 111 mg/dL (74-106); Potassium 4.2 mmol/L (3.5-5.1); Protein, Total 7.1 g/dL (6.4-8.2); Sodium Level 138 mmol/L (136-145)
[2018-01-28 11:44] LABS: BNP,B-Type NATRIURETIC PEPTIDE 70.8 pg/mL (0-100)
[2018-01-28] MEDS: Albuterol 2.5 MG/3 ML VIAL.NEB. INHALATION ×3 (11:45→21:08)
--- NOTE | 2018-01-28 12:39 | PCM.HP.STD ---
History of Present Illness Date of Admission: 01/28/18 Chief Complaint: Shortness of breath The patient is a 77 year old M with past medical history significant for CAD with previous stent placement, recent hospitalization for bronchitis for which patient was discharged home on 225 2:18 days of hospitalization. Patient reports worsening symptoms since being discharged. He also did notice increasing shortness of breath as well as chest congestion and wheezing. Patient did follow-up with his primary surveillance supervisor Dr. Bowser. Patient was noted to be significantly dyspneic at rest placed on supplemental oxygen and subsequently transferred to the emergency room. In the ED imaging studies obtained came back consistent with pneumonia and assessment of healthcare acquired pneumonia was made patient admitted to a monitored bed for further management. On further questioning patient did admit to low-grade intermittent fever as well as chills. Denied any nausea no vomiting Past Medical History Past Medical History (Chronic Problems): Chronic Problems (Last Updated 01/28/18 @ 10:22 by Chiquita Irving) Stented coronary artery (Chronic) PTCA of proximal LAD with VINNIE, 2010 - 03/23/16 Transferred to [facility] for IVUS & VINNIE to prox. RCA History of left heart catheterization (Chronic) 12/11/2010 @ [facility] per Dr. Bowser, 03/23/2016 @ [facility] per Dr. Bowser (each cath followed by PTCA) Hyperlipidemia (Chronic) Old myocardial infarction (Chronic) Atherosclerotic heart disease of [place] coronary artery without angina pectoris (Chronic) Paroxysmal supraventricular tachycardia by electrocardiogram (ECG) (Chronic) group home use of drug (Chronic) Premature ventricular contractions (Chronic) Status post radiofrequency ablation for arrhythmia (Chronic) Bilateral carotid bruits (Chronic) Atrial fibrillation (Chronic) Prostate cancer (Chronic) Palpitations (Chronic) History of coronary artery stent placement (Chronic) Allergies rosuvastatin [From Crestor] Adverse Reaction (Severe, Verified 01/28/18 10:43) Myalgias atorvastatin Adverse Reaction (Intermediate, Verified 01/28/18 10:43) Can't Sleep Home Medications: Ambulatory Orders Medication Instructions Recorded Aspirin 325 mg PO DAILY@0800 12/05/14 Calcium Carb/Vitamin D 1 tab PO DAILY@0800 03/22/16 [Caltrate-600 With Vit D Tab] Nitroglycerin [Nitrostat] 0.4 mg SUBLINGUAL Q5M PRN 03/22/16 Selenium 200 mcg PO DAILY 04/24/16 multivitamin tablet 1 tab PO QDAY 01/24/18 omega-3 fatty acids 1,000 mg 2,000 mg PO QDAY cap 01/24/18 capsule Acetaminophen [Tylenol Tablet] 650 mg PO Q6H PRN PRN tab 01/26/18 Albuterol Sulfate [Ventolin Hfa] 2 puff INHALATION TID #1 g 01/26/18 Azithromycin [Zithromax] 500 mg PO Q24 #2 tab 01/26/18 Guaifenesin/Codeine [Robitussin AC] 10 ml PO Q6H PRN PRN udc 01/26/18 Prednisone 10 mg PO UD #14 tab 01/26/18 Surgical History: appendectomy, - - Treatment for prostate cancer with radiation implant seeds. Coronary artery stent placement, ablation for tachyarrhythmia Psychiatric History: No pertinent psych hx Smoking Status: Never smoker - *Family History Paternal History Items: Unknown Maternal History Items: Heart Disease Review of Systems Constitutional: Reports: Chills, Fever, Malaise HEENT: Denies: Head Aches, Sinus Congestion, Sinus Drainage Cardiovascular: Denies: Chest Pain, Orthopnea, Palpitations, Paroxysmal Noc. Dyspnea Respiratory: Reports: Cough, Shortness of Breath, Wheezing Gastrointestinal: Denies: Abdominal Pain, Hematemesis, Hematochezia, Nausea, Melena, Vomiting Genitourinary: Denies: Dysuria, Frequency, Hematuria, Urgency Musculoskeletal: Denies: Joint Pain, Joint Tenderness Skin: Denies: Rash Neurological: Denies: Focal weakness, Numbness, Tingling Psychiatric: Denies: Homicidal Ideations, Suicidal Ideations Hematologic/ Lymphatic: Denies: Easy Bruising, Easy Bleeding VTE Information - Inpt Only VTE Present on Admission: No VTE Mechan Device Prophylaxis: Knee High NOBLE Hose VTE Pharm Prophylaxis ordered?: Yes Objective: GENERAL: Patient dyspneic at rest HEENT: Clear conjunctiva, NECK; supple, normal thyroid, CHEST: Diminished to auscultation bilaterally, HEART: Regular S1 S2, with occasional skipped beat ABDOMEN: soft, non-tender, normoactive bowel sounds, RECTAL: deferred EXTREMITIES: No edema, no clubbing, no cyanosis. INDUSTRIAL STAFF NURSE: Awake, no lateralizing signs. SKIN: No rash - Physical Exam Vital Signs Temp Pulse Resp BP Pulse Ox 97.8 F 102 H 24 H 129/77 H 96 01/28/18 10:28 01/28/18 12:14 01/28/18 12:14 01/28/18 12:14 01/28/18 12:14 Assessment/Plan Patient is a 77-year-old gentleman with recent hospitalization for acute bronchitis presented with progressive shortness of breath 1. Healthcare acquired pneumonia in a patient with recent localization for acute bronchitis. Patient has been admitted to monitored bed. Patient was started on ciprofloxacin Zosyn as well as vancomycin with cultures sent. Was also placed on supplemental oxygen titrated to keep oxygen sats greater than 90 2. CAD status post PTCA of proximal LAD with a VINNIE 3. Paroxysmal A. fib 4. Frequent PVCs patient was placed on telemetry for continuous monitoring consultation placed to patient's surveillance supervisor 5. History of prostate CA currently remission 6. Dyslipidemia patient is on fish oil 7. DVT prophylaxis SC heparin Clinical Impression(s) from Imaging Studies Chest X-Ray 01/28/18 11:00 IMPRESSION: Since prior study, there has been progressive atelectasis and/or infiltrate at the lung bases. Electronically Signed: Sanju Nix MD at 11:36 EST Tel [phone], Service support , Code Visit Inpatient E&M: 00871 Init Hosp L3
[2018-01-28] MEDS: Piperacil/Tazobactam 3.375 GM/50 ML ML IV ×2 (12:41→20:08)
[2018-01-28 13:13] LABS: Lactic Acid 1.3 mmol/L (0.4-2.0)
[2018-01-28] MEDS: Heparin Injection 5,000 UNITS/ML Syringe 5000 UNITS SC ×2 (15:11→22:01)
[2018-01-28] MEDS: Famotidine 20 MG Tablet PO (22:01)
[2018-01-28] MEDS: guaiFENesin 1,200 MG Tablet 1200 MG PO (22:01)
--- NOTE | 2018-01-28 22:17 | NURSING ---
This RN attempted 2 IVs. international sourcing manager attempted 1 IV. international sourcing manager used vein finder, was unable to find a good vein to attempt another IV on. Pt has incompatible abx due around same time. Will run abx back to back.
[2018-01-29] VITALS (19 sets, daily range): BP systolic 108–124; BP diastolic 65–73; PULSE 47–121; RESP 15–20; TEMP 36.7–36.8; O2SAT 94–98
[2018-01-29] MEDS: 0.9% NaCl Peripheral Flush Adult/Peds IV ×4 (00:51→09:28)
[2018-01-29] MEDS: Ipratropium/Albuterol Sulfate 3 ML AMPUL.NEB INHALATION ×4 (02:48→19:51)
--- NOTE | 2018-01-29 03:35 | EKG12_ITS ---
Test Reason : CP Blood Pressure : / mmHG Vent. Rate : 075 BPM Atrial Rate : 075 BPM P-R Int : 190 ms QRS Dur : 156 ms QT Int : 428 ms P-R-T Axes : 028 008 014 degrees QTc Int : 477 ms Sinus rhythm with occasional Premature ventricular complexes Right bundle branch block Abnormal ECG When compared with ECG of 28-JAN-2018 11:17, MANUAL COMPARISON REQUIRED, DATA IS UNCONFIRMED Confirmed by MARCELA WAGNER, XU ([id number]), brands editor AALIYAH AVALOS ([id number]) on 02/05/2018 1:24:16 PM Referred By: DR HAWK Confirmed By:XU MEDRANO MD
[2018-01-29] MEDS: Albuterol 2.5 MG/3 ML VIAL.NEB. INHALATION (04:07)
[2018-01-29] MEDS: Piperacil/Tazobactam 3.375 GM/50 ML ML IV ×3 (05:54→20:08)
[2018-01-29] MEDS: Heparin Injection 5,000 UNITS/ML Syringe 5000 UNITS SC ×3 (06:23→22:19)
[2018-01-29 06:30] LABS: Hematocrit 40.1 % (40-54); Hemoglobin 13.6 g/dl (13.0-16.5); Mean Corp Hgb Conc 33.9 g/gl (32-36); Mean Corpuscular Hgb 30.6 pg (27.0-32.0); Mean Corpuscular Volume 90.3 fL (80-94); Mean Platelet Vol. 9.4 fl (6.2-12.0); Platelet Count 177 K/mm3 (150-450); RBC Distribution Width CV 13.5 % (11.6-14.6); Red Blood Count 4.44 M/mm3 (4.6-6.2); White Blood Count 13.8 K/mm3 (4.4-11.0)
[2018-01-29 06:32] LABS: Scan Indicated on CBC? Y/N NO
[2018-01-29 06:47] LABS: Anion Gap 8 (5-15); BUN 23 mg/dL (7-18); Calcium,Total 7.9 mg/dL (8.5-10.1); Chloride 107 mmol/L (98-107); Creatinine, Serum 0.96 mg/dL (0.70-1.30); EST Glomerular Filtration Rate 81 mL/min (>60); Est Glom Filt Rate - Afr Amer 98 mL/min (>60); Estimated Creatinine Clearance 63.33 ml/min; Glucose 127 mg/dL (74-106); Potassium 3.9 mmol/L (3.5-5.1); Sodium Level 140 mmol/L (136-145)
[2018-01-29] MEDS: Calcium Carb/Vitamin D 1 TABLET Tablet PO (09:27)
[2018-01-29] MEDS: guaiFENesin 1,200 MG Tablet 1200 MG PO ×2 (09:27→22:19)
[2018-01-29] MEDS: Famotidine 20 MG Tablet PO ×2 (09:27→22:19)
[2018-01-29] MEDS: Aspirin 325 MG Tablet PO (09:27)
[2018-01-29] MEDS: Multivitamins,Therapeutic Tablet 1 TABLET PO (09:27)
--- NOTE | 2018-01-29 11:20 | PN_ITS ---
Subjective: Seen still complains of persistent cough also complains of being constipated and order was given for patient to receive magnesium citrate placed on scheduled senna Objective: GENERAL: Patient dyspneic at rest HEENT: Clear conjunctiva, NECK; supple, normal thyroid, CHEST: Diminished to auscultation bilaterally, HEART: Regular S1 S2, with occasional skipped beat ABDOMEN: soft, non-tender, normoactive bowel sounds, RECTAL: deferred EXTREMITIES: No edema, no clubbing, no cyanosis. TREE TOPPER: Awake, no lateralizing signs. SKIN: No rash Vitals/I&O's: Vital Signs Temp Pulse Resp BP Pulse Ox 98.1 F 84 18 115/66 95 01/29/18 09:33 01/29/18 10:58 01/29/18 09:33 01/29/18 09:33 01/29/18 09:33 Oxygen Flow Rate 1 Oxygen Delivery Method Room Air Weight: 106.1 kg Body Mass Index (BMI) 35.5 Intake and Output for Last 24 Hours 01/27/18 01/28/18 01/29/18 23:59 23:59 23:59 Intake Total 1542.3 / 1542.3 585.6 / 585.6 Output Total 690 / 690 320 / 320 Balance 852.3 / 852.3 265.6 / 265.6 Microbiology Past 72 Hours 01/28/18 17:40 Urine, Random Streptococcus pneumoniae Antigen (M - Final 01/28/18 17:40 Urine, Random Legionella Antigen - Final Laboratory Results 01/28/18 12:24: Lactic Acid 1.3 01/29/18 05:50: WBC 13.8 H, RBC 4.44 L, Hgb 13.6, Hct 40.1, MCV 90.3, MCH 30.6, MCHC 33.9, RDW 13.5, RDW Differential 44.0 H, Plt Count 177, MPV 9.4 01/29/18 05:50: Sodium 140, Potassium 3.9, Chloride 107, Carbon Dioxide 25.0, Anion Gap 8, BUN 23 H, Creatinine 0.96, Estim Creat Clear Calc 63.33, Est GFR ( MDRD) Af Amer 98, Est GFR (MDRD) Non-Af 81, BUN/Creatinine Ratio 24.0 H, Glucose 127 H, Calcium 7.9 L Current Medications Acetaminophen (Tylenol) 650 mg PO Q6H PRN PRN PRN Reason: Mild Pain (1-3)/Temp > 100.7 F Al Hydroxide/Mg Hydroxide (Mylanta Ii) 30 ml PO Q6H PRN PRN PRN Reason: Gastric Burning Albuterol Sulfate (Ventolin Aerosols) 2.5 mg INHALATION Q2H PRN PRN PRN Reason: SHORTNESS OF BREATH Last Admin: 01/29/18 04:07 Dose: 2.5 mg Albuterol/Ipratropium (Duoneb) 3 ml INHALATION Q6H.RT [facility] Last Admin: 01/29/18 07:04 Dose: 3 ml Aspirin (Aspirin) 325 mg PO DAILY@0800 [facility] Last Admin: 01/29/18 09:27 Dose: 325 mg Bisacodyl (Dulcolax) 10 mg PO DAILY PRN PRN PRN Reason: Constipation Calcium/Vitamin D (Os-Bonifacio 500mg + D) 1 tablet PO DAILY@0800 [facility] Last Admin: 01/29/18 09:27 Dose: 1 tablet Docusate Sodium (Colace) 200 mg PO BID PRN PRN PRN Reason: Constipation Famotidine (Pepcid) 20 mg PO BID [facility] Last Admin: 01/29/18 09:27 Dose: 20 mg Guaifenesin (Mucinex) 1,200 mg PO BID [facility] Last Admin: 01/29/18 09:27 Dose: 1,200 mg Guaifenesin/Codeine Phosphate (Robitussin Ac) 10 ml PO Q6H PRN PRN PRN Reason: COUGH/CONGESTION Heparin Sodium (Porcine) () 5,000 units SC Q8 [facility] Last Admin: 01/29/18 06:23 Dose: 5,000 units Piperacillin Sod/Tazobactam Sod (Zosyn) 3.375 gm in 50 mls @ 12.5 mls/hr IV Q8H [facility] Last Admin: 01/29/18 05:54 Dose: 12.5 mls/hr Ciprofloxacin 400 mg/ N/A 200 mls @ 200 mls/hr IV Q12 [facility] Last Admin: 01/29/18 09:28 Dose: 200 mls/hr Vancomycin HCl 1,250 mg/ (Sodium Chloride) 275 mls @ 183.333 mls/hr IV Q12H [facility] Last Admin: 01/29/18 02:01 Dose: 183.333 mls/hr Magnesium Hydroxide (Milk Of Magnesia) 30 ml PO DAILY PRN PRN Reason: Constipation Morphine Sulfate (Morphine) 2 - 4 mg IV Q3H PRN PRN PRN Reason: Severe Pain (pain scale 6-10) Morphine Sulfate (Morphine) 2 - 4 mg IV Q3H PRN PRN PRN Reason: Severe Pain (pain scale 6-10) Multivitamins (Multivitamin) 1 tablet PO DAILY@0800 [facility] Last Admin: 01/29/18 09:27 Dose: 1 tablet Nitroglycerin (Nitrostat) 0.4 mg SUBLINGUAL Q5M PRN PRN Reason: Chest Pain Oxycodone HCl (Oxyir) 5 mg PO Q4H PRN PRN PRN Reason: Moderate Pain (pain scale 4-5) Prednisone (Prednisone) 40 mg PO DAILYCM KIRSTY PRN Reason: Taper Stop: 02/03/18 07:59 Last Admin: 01/29/18 09:27 Dose: 40 mg Prochlorperazine Edisylate (Compazine) 10 mg IV Q6H PRN PRN PRN Reason: Nausea/Vomiting Sodium Chloride () 5 - 30 ml IV UD PRN PRN Reason: SALINE FLUSH Last Admin: 01/29/18 09:28 Dose: 10 ml Zolpidem Tartrate (Ambien (Generic)) 5 mg PO QHS PRN PRN PRN Reason: SLEEP Assessment/Plan Patient is a 77-year-old gentleman with recent hospitalization for acute bronchitis presented with progressive shortness of breath 1. Healthcare acquired pneumonia in a patient with recent localization for acute bronchitis. Patient has been admitted to monitored bed. Patient was started on ciprofloxacin Zosyn as well as vancomycin with cultures sent. Was also placed on supplemental oxygen titrated to keep oxygen sats greater than 90 his progress has rather been slow 2. CAD status post PTCA of proximal LAD with a VINNIE 3. Paroxysmal A. fib 4. Frequent PVCs patient was placed on telemetry for continuous monitoring consultation placed to patient's casino beverage server 5. History of prostate CA currently remission 6. Dyslipidemia patient is on fish oil 7. DVT prophylaxis SC heparin Clinical Impression(s) from Imaging Studies Chest X-Ray 01/28/18 11:00 IMPRESSION: Since prior study, there has been progressive atelectasis and/or infiltrate at the lung bases. Electronically Signed: Sanju Nix MD at 11:36 EST Tel [phone], Service support , Code Visit Inpatient E&M: 07059 Subs Hosp L3
[2018-01-29] MEDS: Senna/Docusate Sodium 1 Tablet 2 TABLET PO (12:40)
[2018-01-29] MEDS: Magnesium Citrate 300 ML 150 ML PO (12:41)
--- NOTE | 2018-01-29 15:28 | CASEMGMT ---
CHART REVIEW: ADM dx: HCAP LACE Strata: 3 Patient is a 77-year-old gentleman with significant cardiac hx, as well as prostate ca, and with recent hospitalization, 01/25-01/26/18, for acute bronchitis, presented with progressive shortness of breath, 01/28 despite continued outpatient treatment. Patient diagnosed with healthcare acquired pneumonia. Patient was started on ciprofloxacin, Zosyn as well as vancomycin with cultures sent. Was also placed on supplemental oxygen titrated to keep oxygen sats greater than 90%. Patient is independent, lives with spouse, and has medical and prescription coverage. Patient is established with PCP. Patient has been alert and oreiented up SBA in room. ODETTE DOMINGUEZ will follow-up with patient prior to discharge to ensure all transition needs are met. ODETTE DOMINGUEZ written handoff provided to Desi Nichole RN CM, PCU. TZULY Garg, RN-BC, CCM
[2018-01-30] VITALS (17 sets, daily range): BP systolic 111–154; BP diastolic 60–92; PULSE 62–102; RESP 12–21; TEMP 36.6–37.1; O2SAT 85–98
[2018-01-30] MEDS: 0.9% NaCl Peripheral Flush Adult/Peds IV ×2 (00:22→11:51)
[2018-01-30] MEDS: Ipratropium/Albuterol Sulfate 3 ML AMPUL.NEB INHALATION ×4 (00:49→19:19)
[2018-01-30] MEDS: Albuterol 2.5 MG/3 ML VIAL.NEB. INHALATION (02:58)
[2018-01-30] MEDS: Heparin Injection 5,000 UNITS/ML Syringe 5000 UNITS SC ×3 (05:22→21:09)
[2018-01-30] MEDS: Piperacil/Tazobactam 3.375 GM/50 ML ML IV ×3 (05:22→21:10)
[2018-01-30 06:50] LABS: Hematocrit 42.9 % (40-54); Hemoglobin 14.7 g/dl (13.0-16.5); Mean Corp Hgb Conc 34.3 g/gl (32-36); Mean Corpuscular Hgb 30.7 pg (27.0-32.0); Mean Corpuscular Volume 89.6 fL (80-94); Mean Platelet Vol. 9.1 fl (6.2-12.0); Platelet Count 204 K/mm3 (150-450); RBC Distribution Width CV 13.8 % (11.6-14.6); RBC Distribution Width SD 44.7 fl (35.1-43.9); Red Blood Count 4.79 M/mm3 (4.6-6.2); White Blood Count 16.6 K/mm3 (4.4-11.0)
[2018-01-30 06:58] LABS: Scan Indicated on CBC? Y/N NO
[2018-01-30 07:07] LABS: Anion Gap 8 (5-15); BUN 21 mg/dL (7-18); BUN/Creat Ratio 20.4 RATIO (10-20); Calcium,Total 8.6 mg/dL (8.5-10.1); Chloride 108 mmol/L (98-107); Creatinine, Serum 1.03 mg/dL (0.70-1.30); EST Glomerular Filtration Rate 74 mL/min (>60); Est Glom Filt Rate - Afr Amer 90 mL/min (>60); Estimated Creatinine Clearance 59.03 ml/min; Glucose 93 mg/dL (74-106); Potassium 3.8 mmol/L (3.5-5.1); Sodium Level 140 mmol/L (136-145)
[2018-01-30] MEDS: Calcium Carb/Vitamin D 1 TABLET Tablet PO (07:39)
[2018-01-30] MEDS: Aspirin 325 MG Tablet PO (07:39)
[2018-01-30] MEDS: Multivitamins,Therapeutic Tablet 1 TABLET PO (07:39)
[2018-01-30] MEDS: Famotidine 20 MG Tablet PO ×2 (09:18→21:09)
[2018-01-30] MEDS: Senna/Docusate Sodium 1 Tablet PO (09:18)
[2018-01-30] MEDS: guaiFENesin 1,200 MG Tablet 1200 MG PO ×2 (09:18→21:09)
--- NOTE | 2018-01-30 11:21 | CT_ITS ---
STUDY: CT CHEST WITHOUT CONTRAST REASON FOR EXAM: Male, 77 years old. Wheezing and acute bronchitis RADIATION DOSAGE (If Supplied By Facility): CTDIvol = ( 20.05 ) mGy, DLP = ( 656.36 ) mGycm TECHNIQUE: Transaxial imaging was performed without the administration of intravenous contrast material. Individualized dose optimization techniques were used for this CT. COMPARISON: None. FINDINGS: There are groundglass airspace opacities within both lower lobes in association with mild thickening of the bronchial duong. There is also subsegmental atelectasis in the right middle lobe. There is calcific granuloma in the right lower lobe. There is no demonstrated pleural abnormality. Heart is normal size. There is diffuse coronary artery disease. There are calcified right hilar and mid mediastinal nodes. Normal unenhanced pulmonary arteries. Atherosclerotic changes of the aorta without evidence for aneurysm. Dorsal spine demonstrates moderate spondylosis There is no demonstrated abnormality of the visualized upper abdomen. CT/Chest without Contrast IMPRESSION: Bilateral lower lobe groundglass opacity which may be consistent with nonspecific interstitial pneumonia and subsegmental atelectasis in the right middle lobe. Electronically Signed: Celso Curiel MD at 17:46 EST , Service support ,
--- NOTE | 2018-01-30 11:28 | PCM.PN.HOSP ---
Subjective: Since seen remains significantly dyspneic at rest apparently went into respiratory distress during the strainer tender with oxygen saturation dropping to 85. An order for CT of the chest without contrast ; patient was also given a single dose of Lasix Objective: GENERAL: Patient dyspneic at rest HEENT: Clear conjunctiva, NECK; supple, normal thyroid, CHEST: Diminished to auscultation bilaterally, HEART: Regular S1 S2, with occasional skipped beat ABDOMEN: soft, non-tender, normoactive bowel sounds, RECTAL: deferred EXTREMITIES: No edema, no clubbing, no cyanosis. 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 SKIN: No rash Vitals/I&O's: Vital Signs Temp Pulse Resp BP Pulse Ox 97.9 F 90 16 122/60 H 95 01/30/18 09:22 01/30/18 11:03 01/30/18 09:22 01/30/18 09:22 01/30/18 09:22 Oxygen Flow Rate 2 Oxygen Delivery Method Room Air Weight: 106.1 kg Body Mass Index (BMI) 35.5 Intake and Output for Last 24 Hours 01/28/18 01/29/18 01/30/18 23:59 23:59 23:59 Intake Total 1542.3 / 1542.3 3098.4 / 3098.4 472.5 / 472.5 Output Total 690 / 690 2420 / 2420 720 / 720 Balance 852.3 / 852.3 678.4 / 678.4 -247.5 / -247.5 Microbiology Past 72 Hours 01/28/18 17:40 Urine, Random Streptococcus pneumoniae Antigen (M - Final 01/28/18 17:40 Urine, Random Legionella Antigen - Final Laboratory Results 01/30/18 06:30: WBC 16.6 H, RBC 4.79, Hgb 14.7, Hct 42.9, MCV 89.6, MCH 30.7, MCHC 34.3, RDW 13.8, RDW Differential 44.7 H, Plt Count 204, MPV 9.1 01/30/18 06:30: Sodium 140, Potassium 3.8, Chloride 108 H, Carbon Dioxide 24.0, Anion Gap 8, BUN 21 H, Creatinine 1.03, Estim Creat Clear Calc 59.03, Est GFR (MDRD) Af Amer 90, Est GFR (MDRD) Non-Af 74, BUN/Creatinine Ratio 20.4 H, Glucose 93, Calcium 8.6 Current Medications Acetaminophen (Tylenol) 650 mg PO Q6H PRN PRN PRN Reason: Mild Pain (1-3)/Temp > 100.7 F Al Hydroxide/Mg Hydroxide (Mylanta Ii) 30 ml PO Q6H PRN PRN PRN Reason: Gastric Burning Albuterol Sulfate (Ventolin Aerosols) 2.5 mg INHALATION Q2H PRN PRN PRN Reason: SHORTNESS OF BREATH Last Admin: 01/30/18 02:58 Dose: 2.5 mg Albuterol/Ipratropium (Duoneb) 3 ml INHALATION Q6H.RT [facility] Last Admin: 01/30/18 07:26 Dose: 3 ml Aspirin (Aspirin) 325 mg PO DAILY@0800 [facility] Last Admin: 01/30/18 07:39 Dose: 325 mg Bisacodyl (Dulcolax) 10 mg PO DAILY PRN PRN PRN Reason: Constipation Calcium/Vitamin D (Os-Bonifacio 500mg + D) 1 tablet PO DAILY@0800 [facility] Last Admin: 01/30/18 07:39 Dose: 1 tablet Docusate Sodium (Colace) 200 mg PO BID PRN PRN PRN Reason: Constipation Famotidine (Pepcid) 20 mg PO BID [facility] Last Admin: 01/30/18 09:18 Dose: 20 mg Guaifenesin (Mucinex) 1,200 mg PO BID [facility] Last Admin: 01/30/18 09:18 Dose: 1,200 mg Guaifenesin/Codeine Phosphate (Robitussin Ac) 10 ml PO Q6H PRN PRN PRN Reason: COUGH/CONGESTION Heparin Sodium (Porcine) () 5,000 units SC Q8 [facility] Last Admin: 01/30/18 05:22 Dose: 5,000 units Piperacillin Sod/Tazobactam Sod (Zosyn) 3.375 gm in 50 mls @ 12.5 mls/hr IV Q8H [facility] Last Admin: 01/30/18 05:22 Dose: 12.5 mls/hr Ciprofloxacin 400 mg/ N/A 200 mls @ 200 mls/hr IV Q12 [facility] Last Admin: 01/30/18 09:18 Dose: 200 mls/hr Vancomycin HCl 1,250 mg/ (Sodium Chloride) 275 mls @ 183.333 mls/hr IV Q12H [facility] Last Admin: 01/30/18 00:20 Dose: 183.333 mls/hr Magnesium Hydroxide (Milk Of Magnesia) 30 ml PO DAILY PRN PRN Reason: Constipation Morphine Sulfate (Morphine) 2 - 4 mg IV Q3H PRN PRN PRN Reason: Severe Pain (pain scale 6-10) Morphine Sulfate (Morphine) 2 - 4 mg IV Q3H PRN PRN PRN Reason: Severe Pain (pain scale 6-10) Multivitamins (Multivitamin) 1 tablet PO DAILY@0800 [facility] Last Admin: 01/30/18 07:39 Dose: 1 tablet Nitroglycerin (Nitrostat) 0.4 mg SUBLINGUAL Q5M PRN PRN Reason: Chest Pain Oxycodone HCl (Oxyir) 5 mg PO Q4H PRN PRN PRN Reason: Moderate Pain (pain scale 4-5) Prednisone (Prednisone) 20 mg PO DAILYCM KIRSTY PRN Reason: Taper Stop: 02/03/18 07:59 Last Admin: 01/30/18 07:39 Dose: 20 mg Prochlorperazine Edisylate (Compazine) 10 mg IV Q6H PRN PRN PRN Reason: Nausea/Vomiting Senna/Docusate Sodium (Senokot-S, Jamee-Colace) 1 tablet PO DAILY [facility] Last Admin: 01/30/18 09:18 Dose: 1 tablet Sodium Chloride () 5 - 30 ml IV UD PRN PRN Reason: SALINE FLUSH Last Admin: 01/30/18 00:22 Dose: 30 ml Zolpidem Tartrate (Ambien (Generic)) 5 mg PO QHS PRN PRN PRN Reason: SLEEP Assessment/Plan Patient is a 77-year-old gentleman with recent hospitalization for acute bronchitis presented with progressive shortness of breath 1. Healthcare acquired pneumonia in a patient with recent localization for acute bronchitis. Patient has been admitted to monitored bed. Patient was started on ciprofloxacin Zosyn as well as vancomycin with cultures sent. Was also placed on supplemental oxygen titrated to keep oxygen sats greater than 90 his progress has rather been slow CT of the chest without contrast ordered for subsequent evaluation 2. CAD status post PTCA of proximal LAD with a VINNIE 3. Paroxysmal A. fib 4. Frequent PVCs patient was placed on telemetry for continuous monitoring consultation placed to patient's supervisor securities vault 5. History of prostate CA currently remission 6. Dyslipidemia patient is on fish oil 7. DVT prophylaxis SC heparin 8. Chronic diastolic congestive heart failure. Patient echo on record obtained on 08/06/2017 demonstrated EF of 65% with preserved ejection fraction; patient worsening respiratory status Lasix was added to his therapy Clinical Impression(s) from Imaging Studies Chest X-Ray 01/28/18 11:00 IMPRESSION: Since prior study, there has been progressive atelectasis and/or infiltrate at the lung bases. Electronically Signed: Sanju Nix MD at 11:36 EST Tel [phone], Service support , Code Visit Inpatient E&M: [id number] Subs Hosp L3
--- NOTE | 2018-01-30 11:31 | PN_ITS ---
Subjective: Since seen remains significantly dyspneic at rest apparently went into respiratory distress during the r d engineer with oxygen saturation dropping to 85. An order for CT of the chest without contrast ; patient was also given a single dose of Lasix Objective: GENERAL: Patient dyspneic at rest HEENT: Clear conjunctiva, NECK; supple, normal thyroid, CHEST: Diminished to auscultation bilaterally, HEART: Regular S1 S2, with occasional skipped beat ABDOMEN: soft, non-tender, normoactive bowel sounds, RECTAL: deferred EXTREMITIES: No edema, no clubbing, no cyanosis. 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 SKIN: No rash Vitals/I&O's: Vital Signs Temp Pulse Resp BP Pulse Ox 97.9 F 90 16 122/60 H 95 01/30/18 09:22 01/30/18 11:03 01/30/18 09:22 01/30/18 09:22 01/30/18 09:22 Oxygen Flow Rate 2 Oxygen Delivery Method Room Air Weight: 106.1 kg Body Mass Index (BMI) 35.5 Intake and Output for Last 24 Hours 01/28/18 01/29/18 01/30/18 23:59 23:59 23:59 Intake Total 1542.3 / 1542.3 3098.4 / 3098.4 472.5 / 472.5 Output Total 690 / 690 2420 / 2420 720 / 720 Balance 852.3 / 852.3 678.4 / 678.4 -247.5 / -247.5 Microbiology Past 72 Hours 01/28/18 17:40 Urine, Random Streptococcus pneumoniae Antigen (M - Final 01/28/18 17:40 Urine, Random Legionella Antigen - Final Laboratory Results 01/30/18 06:30: WBC 16.6 H, RBC 4.79, Hgb 14.7, Hct 42.9, MCV 89.6, MCH 30.7, MCHC 34.3, RDW 13.8, RDW Differential 44.7 H, Plt Count 204, MPV 9.1 01/30/18 06:30: Sodium 140, Potassium 3.8, Chloride 108 H, Carbon Dioxide 24.0, Anion Gap 8, BUN 21 H, Creatinine 1.03, Estim Creat Clear Calc 59.03, Est GFR ( MDRD) Af Amer 90, Est GFR (MDRD) Non-Af 74, BUN/Creatinine Ratio 20.4 H, Glucose 93, Calcium 8.6 Current Medications Acetaminophen (Tylenol) 650 mg PO Q6H PRN PRN PRN Reason: Mild Pain (1-3)/Temp > 100.7 F Al Hydroxide/Mg Hydroxide (Mylanta Ii) 30 ml PO Q6H PRN PRN PRN Reason: Gastric Burning Albuterol Sulfate (Ventolin Aerosols) 2.5 mg INHALATION Q2H PRN PRN PRN Reason: SHORTNESS OF BREATH Last Admin: 01/30/18 02:58 Dose: 2.5 mg Albuterol/Ipratropium (Duoneb) 3 ml INHALATION Q6H.RT [facility] Last Admin: 01/30/18 07:26 Dose: 3 ml Aspirin (Aspirin) 325 mg PO DAILY@0800 [facility] Last Admin: 01/30/18 07:39 Dose: 325 mg Bisacodyl (Dulcolax) 10 mg PO DAILY PRN PRN PRN Reason: Constipation Calcium/Vitamin D (Os-Bonifacio 500mg + D) 1 tablet PO DAILY@0800 [facility] Last Admin: 01/30/18 07:39 Dose: 1 tablet Docusate Sodium (Colace) 200 mg PO BID PRN PRN PRN Reason: Constipation Famotidine (Pepcid) 20 mg PO BID [facility] Last Admin: 01/30/18 09:18 Dose: 20 mg Guaifenesin (Mucinex) 1,200 mg PO BID [facility] Last Admin: 01/30/18 09:18 Dose: 1,200 mg Guaifenesin/Codeine Phosphate (Robitussin Ac) 10 ml PO Q6H PRN PRN PRN Reason: COUGH/CONGESTION Heparin Sodium (Porcine) () 5,000 units SC Q8 [facility] Last Admin: 01/30/18 05:22 Dose: 5,000 units Piperacillin Sod/Tazobactam Sod (Zosyn) 3.375 gm in 50 mls @ 12.5 mls/hr IV Q8H [facility] Last Admin: 01/30/18 05:22 Dose: 12.5 mls/hr Ciprofloxacin 400 mg/ N/A 200 mls @ 200 mls/hr IV Q12 [facility] Last Admin: 01/30/18 09:18 Dose: 200 mls/hr Vancomycin HCl 1,250 mg/ (Sodium Chloride) 275 mls @ 183.333 mls/hr IV Q12H [facility] Last Admin: 01/30/18 00:20 Dose: 183.333 mls/hr Magnesium Hydroxide (Milk Of Magnesia) 30 ml PO DAILY PRN PRN Reason: Constipation Morphine Sulfate (Morphine) 2 - 4 mg IV Q3H PRN PRN PRN Reason: Severe Pain (pain scale 6-10) Morphine Sulfate (Morphine) 2 - 4 mg IV Q3H PRN PRN PRN Reason: Severe Pain (pain scale 6-10) Multivitamins (Multivitamin) 1 tablet PO DAILY@0800 [facility] Last Admin: 01/30/18 07:39 Dose: 1 tablet Nitroglycerin (Nitrostat) 0.4 mg SUBLINGUAL Q5M PRN PRN Reason: Chest Pain Oxycodone HCl (Oxyir) 5 mg PO Q4H PRN PRN PRN Reason: Moderate Pain (pain scale 4-5) Prednisone (Prednisone) 20 mg PO DAILYCM KIRSTY PRN Reason: Taper Stop: 02/03/18 07:59 Last Admin: 01/30/18 07:39 Dose: 20 mg Prochlorperazine Edisylate (Compazine) 10 mg IV Q6H PRN PRN PRN Reason: Nausea/Vomiting Senna/Docusate Sodium (Senokot-S, Jamee-Colace) 1 tablet PO DAILY [facility] Last Admin: 01/30/18 09:18 Dose: 1 tablet Sodium Chloride () 5 - 30 ml IV UD PRN PRN Reason: SALINE FLUSH Last Admin: 01/30/18 00:22 Dose: 30 ml Zolpidem Tartrate (Ambien (Generic)) 5 mg PO QHS PRN PRN PRN Reason: SLEEP Assessment/Plan Patient is a 77-year-old gentleman with recent hospitalization for acute bronchitis presented with progressive shortness of breath 1. Healthcare acquired pneumonia in a patient with recent localization for acute bronchitis. Patient has been admitted to monitored bed. Patient was started on ciprofloxacin Zosyn as well as vancomycin with cultures sent. Was also placed on supplemental oxygen titrated to keep oxygen sats greater than 90 his progress has rather been slow CT of the chest without contrast ordered for subsequent evaluation 2. CAD status post PTCA of proximal LAD with a VINNIE 3. Paroxysmal A. fib 4. 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 History of prostate CA currently remission 6. Dyslipidemia patient is on fish oil 7. DVT prophylaxis SC heparin 8. Chronic diastolic congestive heart failure. Patient echo on record obtained on 08/06/2017 demonstrated EF of 65% with preserved ejection fraction; patient worsening respiratory status Lasix was added to his therapy Clinical Impression(s) from Imaging Studies Chest X-Ray 01/28/18 11:00 IMPRESSION: Since prior study, there has been progressive atelectasis and/or infiltrate at the lung bases. Electronically Signed: Sanju Nix MD at 11:36 EST Tel [phone], Service support , Code Visit Inpatient E&M: [id number] Subs Hosp L3
[2018-01-30] MEDS: Furosemide 100 MG/10 ML Vial 60 MG IV (11:51)
[2018-01-30 12:55] LABS: Vancomycin, Trough Level 16.5 ug/mL (5.0-15.0)
[2018-01-31] VITALS (18 sets, daily range): BP systolic 117–142; BP diastolic 68–81; PULSE 68–109; RESP 12–21; TEMP 36.5–36.8; O2SAT 93–97
[2018-01-31] MEDS: Ipratropium/Albuterol Sulfate 3 ML AMPUL.NEB INHALATION ×4 (01:30→19:22)
[2018-01-31] MEDS: Piperacil/Tazobactam 3.375 GM/50 ML ML IV (04:02)
[2018-01-31] MEDS: Albuterol 2.5 MG/3 ML VIAL.NEB. INHALATION (05:22)
[2018-01-31] MEDS: Heparin Injection 5,000 UNITS/ML Syringe 5000 UNITS SC ×3 (05:36→22:15)
[2018-01-31 06:23] LABS: Hematocrit 42.8 % (40-54); Hemoglobin 14.9 g/dl (13.0-16.5); Mean Corp Hgb Conc 34.8 g/gl (32-36); Mean Corpuscular Hgb 31.2 pg (27.0-32.0); Mean Corpuscular Volume 89.5 fL (80-94); Mean Platelet Vol. 9.4 fl (6.2-12.0); Platelet Count 200 K/mm3 (150-450); RBC Distribution Width CV 13.9 % (11.6-14.6); RBC Distribution Width SD 45.2 fl (35.1-43.9); Red Blood Count 4.78 M/mm3 (4.6-6.2); White Blood Count 13.6 K/mm3 (4.4-11.0)
[2018-01-31 06:24] LABS: Scan Indicated on CBC? Y/N NO
[2018-01-31 06:29] LABS: Anion Gap 9 (5-15); BUN 30 mg/dL (7-18); Calcium,Total 8.8 mg/dL (8.5-10.1); Chloride 104 mmol/L (98-107); EST Glomerular Filtration Rate 62 mL/min (>60); Est Glom Filt Rate - Afr Amer 76 mL/min (>60); Estimated Creatinine Clearance 50.67 ml/min; Glucose 85 mg/dL (74-106); Potassium 3.6 mmol/L (3.5-5.1); Sodium Level 139 mmol/L (136-145)
[2018-01-31] MEDS: Aspirin 325 MG Tablet PO (10:00)
[2018-01-31] MEDS: guaiFENesin 1,200 MG Tablet 1200 MG PO ×2 (10:00→22:16)
[2018-01-31] MEDS: Multivitamins,Therapeutic Tablet 1 TABLET PO (10:00)
[2018-01-31] MEDS: Calcium Carb/Vitamin D 1 TABLET Tablet PO (10:00)
[2018-01-31] MEDS: Famotidine 20 MG Tablet PO ×2 (10:00→22:16)
--- NOTE | 2018-01-31 10:13 | PCM.PN.HOSP ---
Subjective: Went into acute respiratory distress this a.m. do suspect flash pulmonary edema did change patient antibiotic therapy to decrease how much fluid he is currently getting. CT of the chest obtained the day prior demonstrated Bilateral lower lobe groundglass opacity which may be consistent with nonspecific interstitial pneumonia and subsegmental atelectasis in the right middle lobe Objective: GENERAL: Patient is comfortable at rest HEENT: Clear conjunctiva, NECK; supple, normal thyroid, CHEST: Diminished to auscultation bilaterally, HEART: Regular S1 S2, with occasional skipped beat ABDOMEN: soft, non-tender, normoactive bowel sounds, RECTAL: deferred EXTREMITIES: No edema, no clubbing, no cyanosis. PARTS COUNTERPERSON: Awake, no lateralizing signs. SKIN: No rash Vitals/I&O's: Vital Signs Temp Pulse Resp BP Pulse Ox 97.8 F 73 16 117/73 96 01/31/18 03:15 01/31/18 07:07 01/31/18 07:07 01/31/18 03:15 01/31/18 07:07 Oxygen Flow Rate 2 Oxygen Delivery Method Room Air Weight: 106.1 kg Body Mass Index (BMI) 35.5 Intake and Output for Last 24 Hours 01/29/18 01/30/18 01/31/18 23:59 23:59 23:59 Intake Total 3098.4 / 3098.4 1554.4 / 1554.4 1009 / 1009 Output Total 2420 / 2420 4770 / 4770 550 / 550 Balance 678.4 / 678.4 -3215.6 / -3215.6 459 / 459 Microbiology Past 72 Hours 01/28/18 12:26 Blood Culture (Wb) - Left Hand Blood Culture - Preliminary No growth in 48 hours. 01/28/18 12:24 Blood Culture (Wb) - Anticubital Left Blood Culture - Preliminary No growth in 48 hours. 01/28/18 17:40 Urine, Random Streptococcus pneumoniae Antigen (M - Final 01/28/18 17:40 Urine, Random Legionella Antigen - Final Laboratory Results 01/30/18 12:05: Vancomycin Trough 16.5 H 01/31/18 05:25: WBC 13.6 H, RBC 4.78, Hgb 14.9, Hct 42.8, MCV 89.5, MCH 31.2, MCHC 34.8, RDW 13.9, RDW Differential 45.2 H, Plt Count 200, MPV 9.4 01/31/18 05:25: Sodium 139, Potassium 3.6, Chloride 104, Carbon Dioxide 26.0, Anion Gap 9, BUN 30 H, Creatinine 1.20, Estim Creat Clear Calc 50.67, Est GFR (MDRD) Af Amer 76, Est GFR (MDRD) Non-Af 62, BUN/Creatinine Ratio 25.0 H, Glucose 85, Calcium 8.8 Current Medications Acetaminophen (Tylenol) 650 mg PO Q6H PRN PRN PRN Reason: Mild Pain (1-3)/Temp > 100.7 F Al Hydroxide/Mg Hydroxide (Mylanta Ii) 30 ml PO Q6H PRN PRN PRN Reason: Gastric Burning Albuterol Sulfate (Ventolin Aerosols) 2.5 mg INHALATION Q2H PRN PRN PRN Reason: SHORTNESS OF BREATH Last Admin: 01/31/18 05:22 Dose: 2.5 mg Albuterol/Ipratropium (Duoneb) 3 ml INHALATION Q6H.RT [facility] Last Admin: 01/31/18 07:06 Dose: 3 ml Amoxicillin/Clavulanate Potassium (Augmentin Tablet) 875 mg PO BID [facility] Aspirin (Aspirin) 325 mg PO DAILY@0800 [facility] Last Admin: 01/31/18 10:00 Dose: 325 mg Bisacodyl (Dulcolax) 10 mg PO DAILY PRN PRN PRN Reason: Constipation Calcium/Vitamin D (Os-Bonifacio 500mg + D) 1 tablet PO DAILY@0800 [facility] Last Admin: 01/31/18 10:00 Dose: 1 tablet Ciprofloxacin HCl (Cipro) 500 mg PO BID [facility] Docusate Sodium (Colace) 200 mg PO BID PRN PRN PRN Reason: Constipation Famotidine (Pepcid) 20 mg PO BID [facility] Last Admin: 01/31/18 10:00 Dose: 20 mg Furosemide (Lasix) 40 mg PO BID@1000,1800 [facility] Guaifenesin (Mucinex) 1,200 mg PO BID [facility] Last Admin: 01/31/18 10:00 Dose: 1,200 mg Guaifenesin/Codeine Phosphate (Robitussin Ac) 10 ml PO Q6H PRN PRN PRN Reason: COUGH/CONGESTION Heparin Sodium (Porcine) () 5,000 units SC Q8 [facility] Last Admin: 01/31/18 05:36 Dose: 5,000 units Lactobacillus Acidophilus (Acidophilus) 1 tablet PO BID [facility] Magnesium Hydroxide (Milk Of Magnesia) 30 ml PO DAILY PRN PRN Reason: Constipation Morphine Sulfate (Morphine) 2 - 4 mg IV Q3H PRN PRN PRN Reason: Severe Pain (pain scale 6-10) Morphine Sulfate (Morphine) 2 - 4 mg IV Q3H PRN PRN PRN Reason: Severe Pain (pain scale 6-10) Multivitamins (Multivitamin) 1 tablet PO DAILY@0800 [facility] Last Admin: 01/31/18 10:00 Dose: 1 tablet Nitroglycerin (Nitrostat) 0.4 mg SUBLINGUAL Q5M PRN PRN Reason: Chest Pain Oxycodone HCl (Oxyir) 5 mg PO Q4H PRN PRN PRN Reason: Moderate Pain (pain scale 4-5) Prednisone (Prednisone) 20 mg PO DAILYCM [facility] PRN Reason: Taper Stop: 02/03/18 07:59 Last Admin: 01/31/18 10:00 Dose: 20 mg Prochlorperazine Edisylate (Compazine) 10 mg IV Q6H PRN PRN PRN Reason: Nausea/Vomiting Senna/Docusate Sodium (Senokot-S, Jamee-Colace) 1 tablet PO DAILY [facility] Last Admin: 01/31/18 10:03 Dose: Not Given Sodium Chloride () 5 - 30 ml IV UD PRN PRN Reason: SALINE FLUSH Last Admin: 01/30/18 11:51 Dose: 10 ml Zolpidem Tartrate (Ambien (Generic)) 5 mg PO QHS PRN PRN PRN Reason: SLEEP Assessment/Plan Patient is a 77-year-old gentleman with recent hospitalization for acute bronchitis presented with progressive shortness of breath 1. Healthcare acquired pneumonia in a patient with recent localization for acute bronchitis. Patient has been admitted to monitored bed. Patient was started on ciprofloxacin Zosyn as well as vancomycin with cultures sent. Was also placed on supplemental oxygen titrated to keep oxygen sats greater than 90 his progress has rather been slow CT of the chest without contrast ordered for subsequent evaluation . CT demonstrated bilateral lower lobe groundglass opacity which may be consistent with nonspecific interstitial pneumonia and subsegmental atelectasis in the right middle lobe 2. CAD status post PTCA of proximal LAD with a VINNIE 3. Paroxysmal A. fib 4. 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 History of prostate CA currently remission 6. Dyslipidemia patient is on fish oil 7. DVT prophylaxis SC heparin 8. Chronic diastolic congestive heart failure. Patient echo on record obtained on 08/06/2017 demonstrated EF of 65% with preserved ejection fraction; patient worsening respiratory status Lasix was added to his therapy Clinical Impression(s) from Imaging Studies Chest CT 01/30/18 11:21 IMPRESSION: Bilateral lower lobe groundglass opacity which may be consistent with nonspecific interstitial pneumonia and subsegmental atelectasis in the right middle lobe. Electronically Signed: Celso Curiel MD at 17:46 EST , Service support , Code Visit Inpatient E&M: [id number] Subs Hosp L2
--- NOTE | 2018-01-31 10:16 | PN_ITS ---
Subjective: Went into acute respiratory distress this a.m. do suspect flash pulmonary edema did change patient antibiotic therapy to decrease how much fluid he is currently getting. CT of the chest obtained the day prior demonstrated Bilateral lower lobe groundglass opacity which may be consistent with nonspecific interstitial pneumonia and subsegmental atelectasis in the right middle lobe Objective: GENERAL: Patient is comfortable at rest HEENT: Clear conjunctiva, NECK; supple, normal thyroid, CHEST: Diminished to auscultation bilaterally, HEART: Regular S1 S2, with occasional skipped beat ABDOMEN: soft, non-tender, normoactive bowel sounds, RECTAL: deferred EXTREMITIES: No edema, no clubbing, no cyanosis. 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 SKIN: No rash Vitals/I&O's: Vital Signs Temp Pulse Resp BP Pulse Ox 97.8 F 73 16 117/73 96 01/31/18 03:15 01/31/18 07:07 01/31/18 07:07 01/31/18 03:15 01/31/18 07:07 Oxygen Flow Rate 2 Oxygen Delivery Method Room Air Weight: 106.1 kg Body Mass Index (BMI) 35.5 Intake and Output for Last 24 Hours 01/29/18 01/30/18 01/31/18 23:59 23:59 23:59 Intake Total 3098.4 / 3098.4 1554.4 / 1554.4 1009 / 1009 Output Total 2420 / 2420 4770 / 4770 550 / 550 Balance 678.4 / 678.4 -3215.6 / -3215.6 459 / 459 Microbiology Past 72 Hours 01/28/18 12:26 Blood Culture (Wb) - Left Hand Blood Culture - Preliminary No growth in 48 hours. 01/28/18 12:24 Blood Culture (Wb) - Anticubital Left Blood Culture - Preliminary No growth in 48 hours. 01/28/18 17:40 Urine, Random Streptococcus pneumoniae Antigen (M - Final 01/28/18 17:40 Urine, Random Legionella Antigen - Final Laboratory Results 01/30/18 12:05: Vancomycin Trough 16.5 H 01/31/18 05:25: WBC 13.6 H, RBC 4.78, Hgb 14.9, Hct 42.8, MCV 89.5, MCH 31.2, MCHC 34.8, RDW 13.9, RDW Differential 45.2 H, Plt Count 200, MPV 9.4 01/31/18 05:25: Sodium 139, Potassium 3.6, Chloride 104, Carbon Dioxide 26.0, Anion Gap 9, BUN 30 H, Creatinine 1.20, Estim Creat Clear Calc 50.67, Est GFR ( MDRD) Af Amer 76, Est GFR (MDRD) Non-Af 62, BUN/Creatinine Ratio 25.0 H, Glucose 85, Calcium 8.8 Current Medications Acetaminophen (Tylenol) 650 mg PO Q6H PRN PRN PRN Reason: Mild Pain (1-3)/Temp > 100.7 F Al Hydroxide/Mg Hydroxide (Mylanta Ii) 30 ml PO Q6H PRN PRN PRN Reason: Gastric Burning Albuterol Sulfate (Ventolin Aerosols) 2.5 mg INHALATION Q2H PRN PRN PRN Reason: SHORTNESS OF BREATH Last Admin: 01/31/18 05:22 Dose: 2.5 mg Albuterol/Ipratropium (Duoneb) 3 ml INHALATION Q6H.RT [facility] Last Admin: 01/31/18 07:06 Dose: 3 ml Amoxicillin/Clavulanate Potassium (Augmentin Tablet) 875 mg PO BID [facility] Aspirin (Aspirin) 325 mg PO DAILY@0800 [facility] Last Admin: 01/31/18 10:00 Dose: 325 mg Bisacodyl (Dulcolax) 10 mg PO DAILY PRN PRN PRN Reason: Constipation Calcium/Vitamin D (Os-Bonifacio 500mg + D) 1 tablet PO DAILY@0800 [facility] Last Admin: 01/31/18 10:00 Dose: 1 tablet Ciprofloxacin HCl (Cipro) 500 mg PO BID [facility] Docusate Sodium (Colace) 200 mg PO BID PRN PRN PRN Reason: Constipation Famotidine (Pepcid) 20 mg PO BID [facility] Last Admin: 01/31/18 10:00 Dose: 20 mg Furosemide (Lasix) 40 mg PO BID@1000,1800 [facility] Guaifenesin (Mucinex) 1,200 mg PO BID [facility] Last Admin: 01/31/18 10:00 Dose: 1,200 mg Guaifenesin/Codeine Phosphate (Robitussin Ac) 10 ml PO Q6H PRN PRN PRN Reason: COUGH/CONGESTION Heparin Sodium (Porcine) () 5,000 units SC Q8 [facility] Last Admin: 01/31/18 05:36 Dose: 5,000 units Lactobacillus Acidophilus (Acidophilus) 1 tablet PO BID [facility] Magnesium Hydroxide (Milk Of Magnesia) 30 ml PO DAILY PRN PRN Reason: Constipation Morphine Sulfate (Morphine) 2 - 4 mg IV Q3H PRN PRN PRN Reason: Severe Pain (pain scale 6-10) Morphine Sulfate (Morphine) 2 - 4 mg IV Q3H PRN PRN PRN Reason: Severe Pain (pain scale 6-10) Multivitamins (Multivitamin) 1 tablet PO DAILY@0800 [facility] Last Admin: 01/31/18 10:00 Dose: 1 tablet Nitroglycerin (Nitrostat) 0.4 mg SUBLINGUAL Q5M PRN PRN Reason: Chest Pain Oxycodone HCl (Oxyir) 5 mg PO Q4H PRN PRN PRN Reason: Moderate Pain (pain scale 4-5) Prednisone (Prednisone) 20 mg PO DAILYCM [facility] PRN Reason: Taper Stop: 02/03/18 07:59 Last Admin: 01/31/18 10:00 Dose: 20 mg Prochlorperazine Edisylate (Compazine) 10 mg IV Q6H PRN PRN PRN Reason: Nausea/Vomiting Senna/Docusate Sodium (Senokot-S, Jamee-Colace) 1 tablet PO DAILY [facility] Last Admin: 01/31/18 10:03 Dose: Not Given Sodium Chloride () 5 - 30 ml IV UD PRN PRN Reason: SALINE FLUSH Last Admin: 01/30/18 11:51 Dose: 10 ml Zolpidem Tartrate (Ambien (Generic)) 5 mg PO QHS PRN PRN PRN Reason: SLEEP Assessment/Plan Patient is a 77-year-old gentleman with recent hospitalization for acute bronchitis presented with progressive shortness of breath 1. Healthcare acquired pneumonia in a patient with recent localization for acute bronchitis. Patient has been admitted to monitored bed. Patient was started on ciprofloxacin Zosyn as well as vancomycin with cultures sent. Was also placed on supplemental oxygen titrated to keep oxygen sats greater than 90 his progress has rather been slow CT of the chest without contrast ordered for subsequent evaluation . CT demonstrated bilateral lower lobe groundglass opacity which may be consistent with nonspecific interstitial pneumonia and subsegmental atelectasis in the right middle lobe 2. CAD status post PTCA of proximal LAD with a VINNIE 3. Paroxysmal A. fib 4. 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 History of prostate CA currently remission 6. Dyslipidemia patient is on fish oil 7. DVT prophylaxis SC heparin 8. Chronic diastolic congestive heart failure. Patient echo on record obtained on 08/06/2017 demonstrated EF of 65% with preserved ejection fraction; patient worsening respiratory status Lasix was added to his therapy Clinical Impression(s) from Imaging Studies Chest CT 01/30/18 11:21 IMPRESSION: Bilateral lower lobe groundglass opacity which may be consistent with nonspecific interstitial pneumonia and subsegmental atelectasis in the right middle lobe. Electronically Signed: Celso Curiel MD at 17:46 EST , Service support , Code Visit Inpatient E&M: 90035 Subs Hosp L2
[2018-01-31] MEDS: Amox/Clavulanate 875 MG Tablet PO ×2 (12:18→16:42)
[2018-01-31] MEDS: Ciprofloxacin 500 MG Tablet PO ×2 (12:18→22:16)
[2018-01-31] MEDS: Furosemide 40 MG Tablet PO ×2 (12:19→16:42)
[2018-02-01] VITALS (8 sets, daily range): BP systolic 106–116; BP diastolic 57–64; PULSE 66–98; RESP 16–20; TEMP 36.6; O2SAT 94–96
[2018-02-01] MEDS: Ipratropium/Albuterol Sulfate 3 ML AMPUL.NEB INHALATION ×2 (01:18→07:01)
[2018-02-01] MEDS: Heparin Injection 5,000 UNITS/ML Syringe 5000 UNITS SC (05:10)
[2018-02-01] MEDS: Calcium Carb/Vitamin D 1 TABLET Tablet PO (07:43)
[2018-02-01] MEDS: Amox/Clavulanate 875 MG Tablet PO (07:43)
[2018-02-01] MEDS: Aspirin 325 MG Tablet PO (07:43)
[2018-02-01] MEDS: Multivitamins,Therapeutic Tablet 1 TABLET PO (07:43)
[2018-02-01] MEDS: Furosemide 40 MG Tablet PO (07:44)
[2018-02-01] MEDS: guaiFENesin 1,200 MG Tablet 1200 MG PO (07:44)
[2018-02-01] MEDS: Famotidine 20 MG Tablet PO (07:44)
[2018-02-01] MEDS: Ciprofloxacin 500 MG Tablet PO (07:44)
--- NOTE | 2018-02-01 10:33 | PCM.DC ---
You will use the following diet at home:: Fluid restricted (specify 2000 mls, 1500 mls) - 2000 mls Allergies/Adverse Reactions: Allergies rosuvastatin [From Crestor] Adverse Reaction (Severe, Verified 01/28/18 10:43) Myalgias atorvastatin Adverse Reaction (Intermediate, Verified 01/28/18 10:43) Can't Sleep Medications to take at Discharge Aspirin 325 mg PO DAILY@0800 12/05/14 Calcium Carb/Vitamin D [Caltrate-600 With Vit D Tab] 1 tab PO DAILY@0800 03/22/16 Nitroglycerin [Nitrostat] 0.4 mg SUBLINGUAL Q5M PRN 03/22/16 Selenium 200 mcg PO DAILY 04/24/16 multivitamin tablet 1 tab PO QDAY 01/24/18 omega-3 fatty acids 1,000 mg capsule 2,000 mg PO QDAY cap 01/24/18 Acetaminophen [Tylenol Tablet] 650 mg PO Q6H PRN PRN tab 01/26/18 Albuterol Sulfate [Ventolin Hfa] 2 puff INHALATION TID #1 g 01/26/18 Guaifenesin/Codeine [Robitussin AC] 10 ml PO Q6H PRN PRN udc 01/26/18 Amox/Clavulanate Tablet [Augmentin Tablet] 875 mg PO BIDCM #10 tab 02/01/18 Ciprofloxacin [Cipro] 500 mg PO BID #10 tab 02/01/18 Furosemide [Lasix] 20 mg PO BIDLX #60 tab 02/01/18 Guaifenesin [Mucinex] 1,200 mg PO BID #20 tab 02/01/18 Lactobacillus Acidophilus [Acidophilus] 1 tab PO BID #30 tab 02/01/18 Prednisone 10 mg PO UD #14 tab 02/01/18 The following prescriptions were given: Amox/Clavulanate Tablet [Augmentin Tablet] 875 mg PO BIDCM #10 tab Ciprofloxacin [Cipro] 500 mg PO BID #10 tab Furosemide [Lasix] 20 mg PO BIDLX #60 tab Guaifenesin [Mucinex] 1,200 mg PO BID #20 tab Lactobacillus Acidophilus [Acidophilus] 1 tab PO BID #30 tab Prednisone 10 mg PO UD #14 tab Primary Care Physician: Maureen Martinez DO [Primary Care Provider] - Please follow up with your Primary Care Physician in: in 1-2 weeks Proposed Discharge Date: 02/01/18
--- NOTE | 2018-02-01 10:44 | DS.PCM_ITS ---
Discharge Date and Diagnosis - Problem List Patient Problems: Active and Suspected Problems (Last Updated 01/28/18 @ 10:22 by Chiquita Irving) Acute diastolic (congestive) heart failure (Acute) Pneumonia (Acute) Date of Admission: 01/28/18 Date of Discharge: 02/01/18 - Primary Discharge Diagnosis Active and Suspected Problems (Last Updated 01/28/18 @ 10:22 by Chiquita Irving) Acute diastolic (congestive) heart failure (Acute) Pneumonia (Acute) - Secondary Discharge Diagnosis Chronic Problems (Last Updated 01/28/18 @ 10:22 by Chiquita Irving) Stented coronary artery (Chronic) PTCA of proximal LAD with VINNIE, 2010 - 03/23/16 Transferred to [facility] for IVUS & VINNIE to prox. RCA History of left heart catheterization (Chronic) 12/11/2010 @ [facility] per Dr. Bowser, 03/23/2016 @ [facility] per Dr. 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 Electronically Signed: Sanju Nix MD at 11:36 EST Tel [phone], Service support , Chest CT 01/30/18 11:21 IMPRESSION: Bilateral lower lobe groundglass opacity which may be consistent with nonspecific interstitial pneumonia and subsegmental atelectasis in the right middle lobe. Electronically Signed: Celso Curiel MD at 17:46 EST , Service support , Operations: None Summary of Care Provided: Patient is a 77-year-old gentleman who presented with progressive shortness of breath 1. Healthcare acquired pneumonia in a patient with recent admission for acute bronchitis. Patient has been admitted to monitored bed. Patient was started on ciprofloxacin Zosyn as well as vancomycin with cultures sent. Was also placed on supplemental oxygen titrated to keep oxygen sats greater than 90 his progress has rather been slow CT of the chest without contrast ordered for subsequent evaluation . CT demonstrated bilateral lower lobe groundglass opacity which may be consistent with nonspecific interstitial pneumonia and subsegmental atelectasis in the right middle lobe 2. CAD status post PTCA of proximal LAD with a VINNIE 3. Paroxysmal A. fib 4. 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 History of prostate CA currently remission 6. Dyslipidemia patient is on fish oil 7. DVT prophylaxis SC heparin 8. Acute on chronic diastolic congestive heart failure. Patient echo on record obtained on 08/06/2017 demonstrated EF of 65% with preserved ejection fraction; patient worsening respiratory status Lasix was added to his therapy Discharge Diet: 8 Cup Fluid Restriciton Home Medications: Medications to take at Discharge Aspirin 325 mg PO DAILY@0800 12/05/14 Calcium Carb/Vitamin D [Caltrate-600 With Vit D Tab] 1 tab PO DAILY@0800 Nitroglycerin [Nitrostat] 0.4 mg SUBLINGUAL Q5M PRN 03/22/16 Selenium 200 mcg PO DAILY 04/24/16 multivitamin tablet 1 tab PO QDAY 01/24/18 omega-3 fatty acids 1,000 mg capsule 2,000 mg PO QDAY cap 01/24/18 Acetaminophen [Tylenol Tablet] 650 mg PO Q6H PRN PRN tab 01/26/18 Albuterol Sulfate [Ventolin Hfa] 2 puff INHALATION TID #1 g 01/26/18 Guaifenesin/Codeine [Robitussin AC] 10 ml PO Q6H PRN PRN udc 01/26/18 Amox/Clavulanate Tablet [Augmentin Tablet] 875 mg PO BIDCM #10 tab 02/01/18 Ciprofloxacin [Cipro] 500 mg PO BID #10 tab 02/01/18 Furosemide [Lasix] 20 mg PO BIDLX #60 tab 02/01/18 Guaifenesin [Mucinex] 1,200 mg PO BID #20 tab 02/01/18 Lactobacillus Acidophilus [Acidophilus] 1 tab PO BID #30 tab 02/01/18 Prednisone 10 mg PO UD #14 tab 02/01/18 Following Prescrptions Were Given to Patient: Amox/Clavulanate Tablet [Augmentin Tablet] 875 mg PO BIDCM #10 tab Ciprofloxacin [Cipro] 500 mg PO BID #10 tab Furosemide [Lasix] 20 mg PO BIDLX #60 tab Guaifenesin [Mucinex] 1,200 mg PO BID #20 tab Lactobacillus Acidophilus [Acidophilus] 1 tab PO BID #30 tab Prednisone 10 mg PO UD #14 tab Primary Care Physician: Maureen Martinez DO [Primary Care Provider] - Please follow up with your Primary Care Physician in: in 1-2 weeks Meaningful Use Info Meaningful Use Diagnoses (Choose all that apply): None applicable Code Visit Inpatient E&M: 88106 Disch Hosp
== END 2018-02-01 12:00 | disposition home or self-care (01) | DRG 177 ==
LOC: ED 10:52 → PCU 12:33
PROVIDERS: Admitting Provider Internal Medicine; Emergency Provider Emergency Medicine; Family Provider Internal Medicine; PCP Internal Medicine; Visit Provider Internal Medicine
DX: J15.6 Pneumonia due to other Gram-negative bacteria (principal); I50.33 Acute on chronic diastolic (congestive) heart failure; I48.0 Paroxysmal atrial fibrillation; J45.901 Unspecified asthma with (acute) exacerbation; J20.9 Acute bronchitis, unspecified; I25.10 Atherosclerotic heart disease of native coronary artery without angina pectoris; Y95 Nosocomial condition; E78.5 Hyperlipidemia, unspecified; I49.3 Ventricular premature depolarization; Z79.82 Long term (current) use of aspirin; Z79.899 Other long term (current) drug therapy; Z85.46 Personal history of malignant neoplasm of prostate; Z95.5 Presence of coronary angioplasty implant and graft; I25.2 Old myocardial infarction; Z92.3 Personal history of irradiation
CPT/HCPCS: 36415; 71045; 71046; 71250; 80048; 80053; 80202; 83605; 83880; 84484; 85025; 85027; 87040; 87070; 87205; 87449; 87804; 93005; 94640; 94667; 94668; 96361; 96372; 96374; 96376; 97162; 99218; 99285; J7030; J7040; J7050; A4216; G0378; J0744; J1940

== ENCOUNTER → 2018-03-04 08:43 | Outpatient (CLI) | payer MEDICARE, SELFPAY ==
[2018-03-04 08:49] LABS: Bacteria 0 SEEN /hpf (None Seen); Mucous, Urine 0 SEEN /hpf (<or=2+); Red Blood Cells-Urine 0 SEEN /hpf (0-5); Squamous Epithelial Cells - UA 0 SEEN /hpf (0-5); White Blood Cells 0 SEEN /hpf (0-5)
[2018-03-04 09:40] LABS: Color, Urine Yellow (Yellow); Glucose, Dipstick Normal (Normal); Ketone-Dipstick Negative (Negative); Leukocyte Esterase-Dipstick Negative /ul (Negative); Nitrite-Dipstick Negative (Negative); Occult Blood-Urine Negative /ul (Negative); Protein-Dipstick Negative (Negative); Specific Gravity, Urine 1.015 (1.002-1.030); Urine Bilirubin Dipstick Negative (Negative); Urine Clarity Clear (Clear); Urine Urobilinogen Normal (Normal); Urine pH 6.5 (5.0 - 8.0)
[2018-03-04 09:46] LABS: Absolute Neutrophil Count 4.7 X10^3/uL (2.0-7.7); Basophil# 0.03 X10^3/uL; Basophil% 0.4 % (0-1); Eosinophil# 0.24 X10^3/uL; Eosinophils% 3.1 % (0-5); Hematocrit 42.6 % (40-54); Hemoglobin 14.7 g/dl (13.0-16.5); Lymphocyte % 24.5 % (19-41); Mean Corp Hgb Conc 34.5 g/gl (32-36); Mean Corpuscular Hgb 31.1 pg (27.0-32.0); Mean Corpuscular Volume 90.3 fL (80-94); Mean Platelet Vol. 9.4 fl (6.2-12.0); Monocyte# 0.84 X10^3/uL; Monocyte% 10.8 % (0-10); Neutrophil # 4.72 X10^3/uL (2.7-7.7); Neutrophil % 60.9 % (47-70); Platelet Count 242 K/mm3 (150-450); RBC Distribution Width CV 13.9 % (11.6-14.6); RBC Distribution Width SD 45.2 fl (35.1-43.9); Red Blood Count 4.72 M/mm3 (4.6-6.2); White Blood Count 7.8 K/mm3 (4.4-11.0)
[2018-03-04 09:47] LABS: POSITIVE COUNT NO; POSITIVE DIFFERENTIAL NO; POSITIVE MORPHOLOGY NO
[2018-03-04 10:08] LABS: ALB/GLOB Ratio 1.1 RATIO (0.9-2.4); AST(SGOT) 19 U/L (15-37); Alanine Aminotransfer ALT/SGPT 21 U/L (16-61); Albumin, Serum 3.5 g/dL (3.2-5.0); Alkaline Phosphatase 73 U/L (45-117); Anion Gap 9 (5-15); BUN 16 mg/dL (7-18); BUN/Creat Ratio 16.7 RATIO (10-20); Calcium,Total 8.8 mg/dL (8.5-10.1); Chloride 109 mmol/L (98-107); Cholesterol 271 mg/dL (200); Creatinine, Serum 0.96 mg/dL (0.70-1.30); EST Glomerular Filtration Rate 81 mL/min (>60); Est Glom Filt Rate - Afr Amer 98 mL/min (>60); Globulin 3.3 g/dL (2.2-4.2); Glucose 83 mg/dL (74-106); High Density Lipoprotein 37 mg/dL; Potassium 4.5 mmol/L (3.5-5.1); Protein, Total 6.8 g/dL (6.4-8.2); Sodium Level 143 mmol/L (136-145); Thyroid Stim Hormone (TSH) 3.33 uIU/mL (0.358-3.74); Triglycerides 120 mg/dL; Very Low Density Lipoprotein 24 mg/dL (5-40)
[2018-03-04 10:23] LABS: Microalbumin,Random Urine < 5.0 mg/L (NO RANGE EST.)
[2018-03-06 12:07] LABS: CHOLESTEROL TOTAL 281 mg/dL (100-199); HDL-C 39 mg/dL (>39); HDL-P TOTAL 26.2 umol/L (>=30.5); SMALL LDL-P 1773 nmol/L (<=527); TRIGLYCERIDES 127 mg/dL (0-149)
[2018-03-06 14:04] LABS: LDL SIZE 20.3 nm (>20.5); LDL-C 217 mg/dL (0-99); LDL-P 2889 nmol/L (<1000); LP-IR SCORE ** 52 (<=45)
== END ==
PROVIDERS: Family Provider Internal Medicine; PCP Internal Medicine; Visit Provider Internal Medicine
DX: I25.10 Atherosclerotic heart disease of native coronary artery without angina pectoris (principal); E78.5 Hyperlipidemia, unspecified
CPT/HCPCS: 36415; 80053; 80061; 81001; 82043; 82570; 83704; 84443; 85025

== ENCOUNTER → 2018-03-20 10:06 | Outpatient (CLI) | payer MEDICARE, SELFPAY ==
[2018-03-20 12:48] LABS: PSA,Total- Diagnostic 2.86 ng/mL (0.0-4.0)
== END ==
PROVIDERS: Family Provider Internal Medicine; PCP Internal Medicine; Visit Provider Urology
DX: C61 Malignant neoplasm of prostate (principal)
CPT/HCPCS: 36415; 84153

== ENCOUNTER → 2018-04-22 08:44 | Outpatient (CLI) | payer MEDICARE, SELFPAY ==
[2018-04-22 10:03] LABS: AST(SGOT) 16 U/L (15-37); Alanine Aminotransfer ALT/SGPT 20 U/L (16-61); Albumin, Serum 3.6 g/dL (3.2-5.0); Alkaline Phosphatase 65 U/L (45-117); Cholesterol 244 mg/dL (200); Globulin 3.6 g/dL (2.2-4.2); High Density Lipoprotein 36 mg/dL; Protein, Total 7.2 g/dL (6.4-8.2); Triglycerides 135 mg/dL; Very Low Density Lipoprotein 27 mg/dL (5-40)
== END ==
PROVIDERS: Family Provider Internal Medicine; PCP Internal Medicine; Visit Provider Internal Medicine
DX: E78.5 Hyperlipidemia, unspecified (principal)
CPT/HCPCS: 36415; 80061; 80076

== ENCOUNTER → 2018-07-21 08:40 | Outpatient (CLI) | payer MEDICARE, SELFPAY ==
[2018-07-21 10:19] LABS: PSA,Total- Diagnostic 3.53 ng/mL (0.0-4.0)
[2018-07-24 03:07] LABS: Immunoglobulin A 143 mg/dL (61-437); Immunoglobulin G 840 mg/dL (700-1600); Immunoglobulin M 75 mg/dL (15-143)
[2018-07-24 08:40] LABS: Immunoglobulin E 75 IU/mL (0-100)
== END ==
PROVIDERS: Family Provider Internal Medicine; PCP Internal Medicine; Visit Provider Urology
DX: C61 Malignant neoplasm of prostate (principal); R97.20 Elevated prostate specific antigen [PSA]; J45.909 Unspecified asthma, uncomplicated; T78.40XA Allergy, unspecified, initial encounter
CPT/HCPCS: 36415; 82784; 82785; 84153

== ENCOUNTER → 2018-09-09 08:52 | Outpatient (CLI) | payer MEDICARE, SELFPAY | PROVIDERS: Family Provider Internal Medicine; PCP Internal Medicine; Visit Provider Internal Medicine | DX: R00.1 Bradycardia, unspecified (principal) | CPT/HCPCS: 93225; 93226 ==

== ENCOUNTER → 2018-12-04 09:33 | Outpatient (CLI) | payer MEDICARE, SELFPAY | PROVIDERS: Family Provider Internal Medicine; PCP Internal Medicine; Referring Provider Urology; Visit Provider Urology | DX: C61 Malignant neoplasm of prostate (principal) | CPT/HCPCS: 36415; 84153 ==

== ENCOUNTER 2019-01-30 09:27 | Emergency (ER) | payer MEDICARE, SELFPAY ==
[2019-01-30 09:29] VITALS: BP 140/89; PULSE 65; RESP 15; TEMP 36.2; O2SAT 98; BMI 37.3
--- NOTE | 2019-01-30 09:39 | EKG12_ITS ---
Test Reason : ARM PAIN Blood Pressure : / mmHG Vent. Rate : 055 BPM Atrial Rate : 055 BPM P-R Int : 176 ms QRS Dur : 158 ms QT Int : 430 ms P-R-T Axes : 008 002 015 degrees QTc Int : 411 ms Sinus bradycardia with sinus arrhythmia Right bundle branch block Abnormal ECG Confirmed by MARCELA WAGNER, XU ([id number]), assignment desk editor AALIYAH AVALOS ([id number]) on 02/02/2019 1:58:45 PM Referred By: MINA Confirmed By:XU MEDRANO MD
[2019-01-30 09:41] VITALS: BP 144/81; PULSE 55; RESP 15; O2SAT 97
--- NOTE | 2019-01-30 09:49 | RAD_ITS ---
STUDY: X-RAY - RIGHT SHOULDER REASON FOR EXAM: Male, 78 years old. Right shoulder. TECHNIQUE: 4 view(s) of the shoulder. COMPARISON: None. FINDINGS: There is moderate degenerative arthrosis of the glenohumeral articulation. Normal acromioclavicular joint. Normal acromion. Degenerative spur along the inferior medial aspect of the humeral head. There is periarticular soft tissue calcification consistent with a calcific tendinitis. Normal visualized pulmonary apex. RAD/Shoulder min 2 Views IMPRESSION: Calcific tendinitis. 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 Electronically Signed: Sanju Nix, at 11:00 EST , Service support ,
--- NOTE | 2019-01-30 10:10 | ED.VISSUMM ---
- ER Visit Summary Date of Service: 01/30/19 Chief Complaint: [Right shoulder pain] History of Present Illness: The patient is a 78 M [presents to the emergency department with discomfort in his right shoulder for the last 3 days. Patient states that the pain is been continuous but waxes and wanes in intensity. Patient states the pain is sharp and shooting with certain movements and as long as he does not move it he does not have a lot of pain. Patient states he had a hard time sleeping last night and he became concerned about the possibility that this might be related to his heart. Patient states that he had some cardiac stents placed in 2010 and at that time is been having some right shoulder discomfort. Patient denies any chest pain. Patient denies any shortness of breath out of the ordinary but states that he is chronically somewhat short of breath. Denies any fevers. He denies any cough. He denies any weakness the extremities. He denies any neck pain.] Physical Examination: [HEENT-PERRLA, EOMI. Cranial nerves II through XII grossly intact. TMs clear. Mucous membranes moist. No adenopathy. Cardiovascular-regular rate and rhythm without murmur or ectopy Lungs-clear to auscultation, chest wall stable without crepitus or subcu emphysema Abdomen-normoactive bowel sounds, soft, nontender, no rebound or rigidity, no peritoneal signs. Extremities-intact ?4, normal range of motion, normal pulses, atraumatic. Right shoulder-I cannot reproduce pain with palpation of the shoulder however when I attempt to abduct the shoulder it causes him significant discomfort and states that that is the same pain that is been feeling. Patient also has a similar pain with internal and external rotation of the shoulder with abduction. Neurovascular intact distally. 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 Deep tendon reflexes are plus 2 out of 4 bilaterally at the biceps, triceps, brachial radialis.] Test Results: [EKG obtained showed a sinus rhythm with a ventricular rate of 55 bpm with a right bundle branch block and occasional PACs. CBC with it was normal. Chemistries unremarkable. Troponin was less than 0.015. Chest x-ray showed a right infrahilar infiltrate that is persistent however when I compared with prior CT scan done in 1 year ago he had some increased markings to this area and also on prior chest x-ray. Patient has no pneumonia symptoms. Right shoulder x-ray showed osteoarthritis of the glenohumeral joint and calcific tendinitis.] Emergency Department Course and Treatment: [Patient was given a sling] Treatment Plan: [Patient will be given a prescription for [place] for pain and referral to orthopedics] Disposition: [Discharged home in stable condition] Impression: [Right shoulder pain] This note was generated with [employer] dictation software. It may contain incorrect words, spelling, and punctuation that were not noted in review of the chart prior to signing ED Disposition - Plan for ED Patient: Referrals: Maureen Martinez DO [Primary Care Provider] -
--- NOTE | 2019-01-30 10:35 | RAD_ITS ---
STUDY: X-RAY CHEST REASON FOR EXAM: Male, 78 years old. Dyspnea. Right arm pain. TECHNIQUE: Single AP portable view of the chest. COMPARISON: Comparison is made with prior study dated January 28, 2018. FINDINGS: EKG electrodes are seen. Persistent increased markings with areas of confluence in the right infrahilar region suggestive of infiltrate. The left lung is clear. There is no demonstrated pleural abnormality. There is mild cardiac enlargement. Normal mediastinum and james. Normal visualized pulmonary arteries. There is atherosclerotic calcification of the aortic arch with tortuosity. There are diffuse degenerative changes of the visualized thoracic spine. Normal visualized ribs, clavicles, and shoulders. There is no demonstrated abnormality of the visualized soft tissue structures of the upper abdomen. RAD/Chest 1 View (Portable) IMPRESSION: Persistent right infrahilar infiltrate. Electronically Signed: Sanju Nix, at 11:00 EST , Service support ,
[2019-01-30 10:42] LABS: Absolute Lymphocyte Count 1.87 X10^3/ul (0.83-4.51); Absolute Neutrophil Count 5.4 X10^3/uL (2.0-7.7); Basophil# 0.02 X10^3/uL; Basophil% 0.2 % (0-1); Eosinophil# 0.52 X10^3/uL; Eosinophils% 6.1 % (0-5); Hematocrit 47.7 % (40-54); Hemoglobin 15.6 g/dl (13.0-16.5); Lymphocyte # 1.87 X10^3/ul (4.0); Lymphocyte % 21.8 % (19-41); Mean Corp Hgb Conc 32.7 g/gl (32-36); Mean Corpuscular Hgb 29.7 pg (27.0-32.0); Mean Corpuscular Volume 90.7 fL (80-94); Mean Platelet Vol. 9.6 fl (6.2-12.0); Monocyte# 0.75 X10^3/uL; Monocyte% 8.7 % (0-10); Neutrophil # 5.42 X10^3/uL (2.7-7.7); Neutrophil % 63.1 % (47-70); POSITIVE COUNT NO; POSITIVE DIFFERENTIAL NO; POSITIVE MORPHOLOGY NO; Platelet Count 227 K/mm3 (150-450); RBC Distribution Width CV 13.7 % (11.6-14.6); RBC Distribution Width SD 45.6 fl (35.1-43.9); Red Blood Count 5.26 M/mm3 (4.6-6.2); White Blood Count 8.6 K/mm3 (4.4-11.0)
[2019-01-30 10:57] LABS: Anion Gap 6 (5-15); BUN 24 mg/dL (7-18); BUN/Creat Ratio 21.8 RATIO (10-20); Calcium,Total 8.7 mg/dL (8.5-10.1); Chloride 109 mmol/L (98-107); EST Glomerular Filtration Rate 69 mL/min (>60); Est Glom Filt Rate - Afr Amer 83 mL/min (>60); Estimated Creatinine Clearance 54.41 ml/min; Glucose 110 mg/dL (74-106); Sodium Level 141 mmol/L (136-145)
[2019-01-30 11:44] VITALS: BP 149/79; PULSE 52; RESP 16; O2SAT 96
--- NOTE | 2019-01-30 11:54 | ED.DEP ---
ED Disposition - Plan for ED Patient: Instructions: ED Shoulder Pain [facility] Prescriptions: Hydrocodone Bitart/Apap 5-325 [[place] 5MG-325MG] 1 tab PO Q4H PRN PRN 2 Days #20 tab PRN Reason: Pain Referrals: Maureen Martinez DO [Primary Care Provider] - Manjeet Barger DO [STAFF PHYSICIAN] - 3-5 Days
[2019-01-30 12:16] VITALS: PULSE 68; RESP 18; O2SAT 97
== END 2019-01-30 12:16 | disposition home or self-care (01) ==
PROVIDERS: Emergency Provider Emergency Medicine; Family Provider Internal Medicine; PCP Internal Medicine
DX: M25.511 Pain in right shoulder (principal); M75.31 Calcific tendinitis of right shoulder; I25.10 Atherosclerotic heart disease of native coronary artery without angina pectoris; I50.9 Heart failure, unspecified; I48.91 Unspecified atrial fibrillation; I49.1 Atrial premature depolarization; J45.909 Unspecified asthma, uncomplicated; Z79.82 Long term (current) use of aspirin; Z79.899 Other long term (current) drug therapy; Z95.5 Presence of coronary angioplasty implant and graft
CPT/HCPCS: 71045; 73030; 80048; 84484; 85025; 93005; 99284; A4216

== ENCOUNTER → 2019-03-05 08:59 | Outpatient (CLI) | payer MEDICARE, SELFPAY ==
[2019-02-26 09:30] VITALS: BMI 36.8
[2019-03-05 10:02] LABS: Absolute Lymphocyte Count 2.05 X10^3/ul (0.83-4.51); Absolute Neutrophil Count 4.8 X10^3/uL (2.0-7.7); Basophil# 0.02 X10^3/uL; Basophil% 0.3 % (0-1); Eosinophil# 0.31 X10^3/uL; Eosinophils% 3.9 % (0-5); Hematocrit 47.5 % (40-54); Hemoglobin 16.2 g/dl (13.0-16.5); Lymphocyte # 2.05 X10^3/ul (4.0); Mean Corp Hgb Conc 34.1 g/gl (32-36); Mean Corpuscular Hgb 30.8 pg (27.0-32.0); Mean Corpuscular Volume 90.3 fL (80-94); Mean Platelet Vol. 9.9 fl (6.2-12.0); Monocyte# 0.69 X10^3/uL; Monocyte% 8.7 % (0-10); Neutrophil # 4.81 X10^3/uL (2.7-7.7); POSITIVE COUNT NO; POSITIVE DIFFERENTIAL NO; POSITIVE MORPHOLOGY NO; Platelet Count 205 K/mm3 (150-450); RBC Distribution Width CV 13.4 % (11.6-14.6); RBC Distribution Width SD 43.8 fl (35.1-43.9); Red Blood Count 5.26 M/mm3 (4.6-6.2); White Blood Count 7.9 K/mm3 (4.4-11.0)
[2019-03-05 10:44] LABS: ALB/GLOB Ratio 1.1 RATIO (0.9-2.4); AST(SGOT) 15 U/L (15-37); Alanine Aminotransfer ALT/SGPT 26 U/L (16-61); Albumin, Serum 3.9 g/dL (3.2-5.0); Alkaline Phosphatase 70 U/L (45-117); Anion Gap 8 (5-15); BUN 15 mg/dL (7-18); BUN/Creat Ratio 15.7 RATIO (10-20); Calcium,Total 9.1 mg/dL (8.5-10.1); Chloride 106 mmol/L (98-107); Creatinine, Serum 0.96 mg/dL (0.70-1.30); EST Glomerular Filtration Rate 81 mL/min (>60); Est Glom Filt Rate - Afr Amer 98 mL/min (>60); Globulin 3.6 g/dL (2.2-4.2); Glucose 88 mg/dL (74-106); Protein, Total 7.5 g/dL (6.4-8.2); Sodium Level 139 mmol/L (136-145); Thyroid Stim Hormone (TSH) 2.73 uIU/mL (0.358-3.74)
[2019-03-06 20:07] LABS: CHOLESTEROL TOTAL 249 mg/dL (100-199); HDL-C 34 mg/dL (>39); SMALL LDL-P 1007 nmol/L (<=527); TRIGLYCERIDES 132 mg/dL (0-149)
[2019-03-07 14:32] LABS: INSULIN RESISTANCE SCORE 52 (<=45); LDL SIZE 20.5 nm (>20.5); LDL-C 189 mg/dL (0-99); LDL-P 2280 nmol/L (<1000)
== END ==
PROVIDERS: Family Provider Internal Medicine; PCP Internal Medicine; Referring Provider Internal Medicine; Visit Provider Internal Medicine
DX: E78.5 Hyperlipidemia, unspecified (principal)
CPT/HCPCS: 36415; 80053; 80061; 83704; 84443; 85025

== ENCOUNTER → 2019-06-10 11:07 | Outpatient (CLI) | payer MEDICARE, SELFPAY ==
[2019-02-26 09:30] VITALS: BMI 36.8
[2019-06-10 13:07] LABS: PSA,Total- Diagnostic 4.49 ng/mL (0.0-4.0)
== END ==
PROVIDERS: Family Provider Internal Medicine; PCP Internal Medicine; Referring Provider Urology; Visit Provider Urology
DX: C61 Malignant neoplasm of prostate (principal)
CPT/HCPCS: 36415; 84153

== ENCOUNTER → 2019-06-15 08:52 | Outpatient (CLI) | payer MEDICARE, SELFPAY ==
[2019-02-26 09:30] VITALS: BMI 36.8
--- NOTE | 2019-06-15 08:59 | CDU_ITS ---
Reason For Study: BILATERAL CAROTID STENOSIS Rt. Velocities/BP Lt. Velocities/BP Prox CCA 102.5/20.3 cm/sec. Prox CCA 109.4/18.1 cm/sec. Mid CCA 88.2/17.7 cm/sec. Mid CCA 83.7/23.5 cm/sec. Dist CCA 61.1/14.9 cm/sec. Dist CCA 61.7/11.3 cm/sec. Prox ICA 87.4/22.6 cm/sec. Prox ICA 63.7/18.3 cm/sec. Mid ICA 84.2/25.9 cm/sec. Mid ICA 68.6/23.2 cm/sec. Dist ICA 86.4/27.0 cm/sec. Dist ICA 40.4/14.1 cm/sec. Rt. ICA/CCA = 87.4/88.2=1.0. Lt. ICA/CCA = 68.6/83.7=0.8. Prox ECA 96.2/7.3 cm/sec. Prox ECA 65.3/5.2 cm/sec. Rt. Vert. 40.0/6.9 cm/sec. Lt. Vert. 62.5/23.2 cm/sec. Right Extracranial There is intimal thickening but no significant atherosclerotic plaque noted in the right common carotid artery. There is heterogeneous, irregular atherosclerotic plaque noted in the right internal carotid artery. There is no significant atherosclerotic plaque noted in the right external carotid artery. Antegrade flow is noted in the right vertebral artery. Left Extracranial There is intimal thickening but no significant atherosclerotic plaque noted in the left common carotid artery. There is heterogeneous, irregular atherosclerotic plaque noted in the left internal carotid artery. There is no significant atherosclerotic plaque noted in the left external carotid artery. Antegrade flow is noted in the left vertebral artery. Procedure Carotid Duplex [id number]. The exam was diagnostic. Exam performed in department. Interpretation Summary Mild (<50%) stenosis right extracranial internal carotid. Mild (<50%) stenosis left extracranial internal carotid. Flow within the vertebral arteries is antegrade bilaterally. Ordering Physician: Maureen Martinez Referring Physician: Maureen Martinez Performed By: Yakelin Saenz, NAVI, RVT
== END ==
PROVIDERS: Family Provider Internal Medicine; PCP Internal Medicine; Referring Provider Internal Medicine; Visit Provider Internal Medicine
DX: I65.23 Occlusion and stenosis of bilateral carotid arteries (principal)
CPT/HCPCS: 93880

== ENCOUNTER → 2019-11-19 08:51 | Outpatient (CLI) | payer MEDICARE, SELFPAY ==
[2019-02-26 09:30] VITALS: BMI 36.8
[2019-11-19 08:59] LABS: Bacteria 0 SEEN /hpf (None Seen); Mucous, Urine 0 SEEN /hpf (<or=2+); Red Blood Cells-Urine 0 SEEN /hpf (0-5); Squamous Epithelial Cells - UA 0 SEEN /hpf (0-5); White Blood Cells 0 SEEN /hpf (0-5)
[2019-11-19 10:02] LABS: Absolute Lymphocyte Count 2.56 X10^3/uL (0.83-4.51); Basophil# 0.06 X10^3/uL; Basophil% 0.6 % (0-1); Eosinophil# 0.33 X10^3/uL; Eosinophils% 3.4 % (0-5); Hematocrit 49.6 % (40-54); Hemoglobin 16.1 g/dL (13.0-16.5); Lymphocyte # 2.56 X10^3/ul (4.0); Lymphocyte % 26.1 % (19-41); Mean Corp Hgb Conc 32.5 g/dL (32-36); Mean Corpuscular Hgb 30.2 pg (27.0-32.0); Mean Corpuscular Volume 93.1 fL (80-94); Mean Platelet Vol. 9.6 fl (6.2-12.0); Monocyte# 0.82 X10^3/uL; Monocyte% 8.4 % (0-10); NRBC Flagged by Analyzer 0 % (0-5); Neutrophil % 61.2 % (47-70); Platelet Count 217 K/mm3 (150-450); RBC Distribution Width CV 13.4 % (11.6-14.6); RBC Distribution Width SD 45.5 fl (35.1-43.9); Red Blood Count 5.33 M/mm3 (4.6-6.2); White Blood Count 9.8 K/mm3 (4.4-11.0)
[2019-11-19 10:10] LABS: Color, Urine Yellow (Yellow); Glucose, Dipstick Normal (Normal); Ketone-Dipstick Negative (Negative); Leukocyte Esterase-Dipstick Negative /ul (Negative); Nitrite-Dipstick Negative (Negative); Occult Blood-Urine Negative /ul (Negative); Protein-Dipstick Negative (Negative); Urine Bilirubin Dipstick Negative (Negative); Urine Clarity Clear (Clear); Urine Urobilinogen Normal (Normal)
[2019-11-19 10:31] LABS: Microalbumin,Random Urine < 5.0 mg/L (NO RANGE EST.)
[2019-11-19 11:20] LABS: AST(SGOT) 24 U/L (15-37); Alanine Aminotransfer ALT/SGPT 23 U/L (16-61); Albumin, Serum 3.8 g/dL (3.2-5.0); Alkaline Phosphatase 74 U/L (45-117); Anion Gap 9 (5-15); BUN 16 mg/dL (7-18); BUN/Creat Ratio 14.8 RATIO (10-20); Calcium,Total 9.2 mg/dL (8.5-10.1); Chloride 109 mmol/L (98-107); Creatinine, Serum 1.08 mg/dL (0.70-1.30); EST Glomerular Filtration Rate 70 mL/min (>60); Est Glom Filt Rate - Afr Amer 85 mL/min (>60); Globulin 3.8 g/dL (2.2-4.2); Glucose 84 mg/dL (74-106); Potassium 4.4 mmol/L (3.5-5.1); Protein, Total 7.6 g/dL (6.4-8.2); Sodium Level 139 mmol/L (136-145)
[2019-11-21 12:07] LABS: CHOLESTEROL TOTAL 240 mg/dL (100-199); HDL-C 34 mg/dL (>39); HDL-P TOTAL 24.7 umol/L (>=30.5); SMALL LDL-P 439 nmol/L (<=527); TRIGLYCERIDES 137 mg/dL (0-149)
[2019-11-21 13:45] LABS: INSULIN RESISTANCE SCORE 71 (<=45); LDL SIZE 20.9 nm (>20.5); LDL-C 179 mg/dL (0-99); LDL-P 2110 nmol/L (<1000)
== END ==
PROVIDERS: Family Provider Internal Medicine; PCP Internal Medicine; Referring Provider Internal Medicine; Visit Provider Internal Medicine
DX: R00.1 Bradycardia, unspecified (principal); E78.5 Hyperlipidemia, unspecified; I25.10 Atherosclerotic heart disease of native coronary artery without angina pectoris
CPT/HCPCS: 36415; 80053; 80061; 81001; 82043; 82570; 83704; 84443; 85025

== ENCOUNTER → 2019-12-11 09:34 | Outpatient (CLI) | payer MEDICARE, SELFPAY ==
[2019-02-26 09:30] VITALS: BMI 36.8
[2019-12-11 11:21] LABS: PSA,Total- Diagnostic 5.17 ng/mL (0.0-4.0)
== END ==
PROVIDERS: Family Provider Internal Medicine; PCP Internal Medicine; Referring Provider Urology; Visit Provider Urology
DX: C61 Malignant neoplasm of prostate (principal)
CPT/HCPCS: 36415; 84153

== ENCOUNTER → 2020-06-02 06:44 | Outpatient (CLI) | payer MEDICARE, SELFPAY ==
[2020-03-01 09:18] VITALS: BMI 37.0
--- NOTE | 2020-06-02 08:16 | CDU_ITS ---
Reason For Study: carotid stenosis Rt. Velocities/BP Lt. Velocities/BP Prox CCA 79.9/17.3 cm/sec. Prox CCA 76.2/13.5 cm/sec. Mid CCA 63.0/18.6 cm/sec. Mid CCA 62.9/12.4 cm/sec. Dist CCA 68.2/14.7 cm/sec. Dist CCA 54.2/11.3 cm/sec. Prox ICA 72.1/25.2 cm/sec. Prox ICA 57.9/14.5 cm/sec. Mid ICA 74.7/30.4 cm/sec. Mid ICA 63.6/23.0 cm/sec. Dist ICA 76.0/22.6 cm/sec. Dist ICA 66.4/21.1 cm/sec. Rt. ICA/CCA = 1.2. Lt. ICA/CCA = 1.1. Prox ECA 79.9/8.2 cm/sec. Prox ECA 52.0/5.8 cm/sec. Rt. Vert. 49.4/17.3 cm/sec. Lt. Vert. 34.3/10.7 cm/sec. Right Extracranial There is intimal thickening but no significant atherosclerotic plaque noted in the right common carotid artery. There is heterogeneous, irregular atherosclerotic plaque noted in the right internal carotid artery. There is intimal thickening but no significant atherosclerotic plaque noted in the right external carotid artery. Antegrade flow is noted in the right vertebral artery. Left Extracranial There is intimal thickening but no significant atherosclerotic plaque noted in the left common carotid artery. There is heterogeneous, irregular atherosclerotic plaque noted in the left internal carotid artery. There is intimal thickening but no significant atherosclerotic plaque noted in the left external carotid artery. Antegrade flow is noted in the left vertebral artery. Procedure Carotid Duplex [id number]. The exam was diagnostic. Exam performed in department. Interpretation Summary Irregular heterogenous plaque proximal right internal carotid artery with less than 50% stenosis. <50% stenosis right external carotid Irregular heterogenous plaque of the proximal left internal carotid artery with less than 50% stenosis <50% stenosis left external carotid Patent, antegrade vertebrals bilaterally No change from the previous examination of June 15, 2019 Ordering Physician: Maureen Martinez Performed By: Laureano Ayala RVT
--- NOTE | 2020-06-02 13:19 | STRESSREP_ITS ---
Stress Test Report Exercise myocardial perfusion stress test. 80-year-old man with a history of chest pain. Stress protocol: Resting EKG demonstrates normal sinus rhythm with a rate of 56 bpm occasional premature ventricular complexes noted right bundle branch block is present. The patient exercised according to regular Marco protocol for total duration of 5 minutes and 16 seconds. The maximum heart rate attained 122 bpm which was 86% of maximum practice heart rate the maximum workload was 7 metabolic equivalents. At rest there were no ST or T wave changes noted suggest ischemia. The patient maintained sinus rhythm throughout the recording with a right bundle branch block pattern. The resting blood pressure was 122/80 with a peak blood pressure 170/90 mmHg. Myocardial perfusion protocol. 14.7 mCi of technetium 99m sestamibi was injected at rest. The patient exercised according to regular Marco protocol for 5 minutes and 16 seconds at pe ak exercise 44.6 mCi of technetium 99m sestamibi was injected stress images were obtained stress and rest images were reconstructed and compared in the short axis vertical long and horizontal long axis. Gated images were also obtained. Perfusion SPECT analysis: Review of the stress images demonstrate normal uptake of tracer noted in all areas of the myocardium the resting images similar demonstrate normal uptake of tracer noted in all areas of the myocardium. No reversibility is noted suggest ischemia no previous infarct is noted. Gated SPECT analysis: The gated ejection fraction is 65%. Conclusion: Normal exercise myocardial perfusion stress test at a moderate workload. Preserved ejection fraction. Good functional capacity.
== END ==
PROVIDERS: PCP Internal Medicine; Referring Provider Internal Medicine; Visit Provider Internal Medicine
DX: R06.02 Shortness of breath (principal); I65.23 Occlusion and stenosis of bilateral carotid arteries
CPT/HCPCS: 78452; 93017; 93880; A9500; A4216

== ENCOUNTER → 2020-06-09 08:24 | Outpatient (CLI) | payer MEDICARE, SELFPAY ==
[2020-03-01 09:18] VITALS: BMI 37.0
[2020-06-09 09:39] LABS: PSA,Total- Diagnostic 6.56 ng/mL (0.0-4.0)
== END ==
PROVIDERS: PCP Internal Medicine; Referring Provider Urology; Visit Provider Urology
DX: C61 Malignant neoplasm of prostate (principal)
CPT/HCPCS: 36415; 84153

== ENCOUNTER → 2020-09-30 10:36 | Outpatient (CLI) | payer MEDICARE, SELFPAY ==
[2020-09-29 11:57] VITALS: BMI 36.9
== END ==
PROVIDERS: PCP Internal Medicine; Referring Provider Physician Assistant; Visit Provider Physician Assistant
DX: U07.1 COVID-19 (principal)
CPT/HCPCS: 87635; C9803; U0003

== ENCOUNTER → 2020-11-07 08:30 | Outpatient (CLI) | payer MEDICARE, SELFPAY ==
[2020-09-29 11:57] VITALS: BMI 36.9
[2020-11-07 08:37] LABS: Bacteria 0 SEEN /hpf (None Seen); Mucous, Urine 0 SEEN /hpf (<or=2+); Red Blood Cells-Urine 0 SEEN /hpf (0-5); White Blood Cells 0 SEEN /hpf (0-5)
[2020-11-07 09:06] LABS: Absolute Lymphocyte Count 2.18 X10^3/uL (0.83-4.51); Absolute Neutrophil Count 5.4 X10^3/uL (2.0-7.7); Basophil# 0.04 X10^3/uL; Basophil% 0.5 % (0-1); Eosinophil# 0.33 X10^3/uL; Eosinophils% 3.8 % (0-5); Hemoglobin 15.2 g/dL (13.0-16.5); Lymphocyte # 2.18 X10^3/ul (4.0); Mean Corpuscular Hgb 30.8 pg (27.0-32.0); Mean Corpuscular Volume 93.3 fL (80-94); Mean Platelet Vol. 9.2 fl (6.2-12.0); Monocyte# 0.76 X10^3/uL; Monocyte% 8.7 % (0-10); NRBC Flagged by Analyzer 0 % (0-5); Neutrophil # 5.37 X10^3/uL (2.7-7.7); Neutrophil % 61.5 % (47-70); Platelet Count 204 K/mm3 (150-450); RBC Distribution Width CV 14.1 % (11.6-14.6); RBC Distribution Width SD 48.4 fl (35.1-43.9); Red Blood Count 4.93 M/mm3 (4.6-6.2); White Blood Count 8.7 K/mm3 (4.4-11.0)
[2020-11-07 09:07] LABS: Color, Urine Yellow (Yellow); Glucose, Dipstick Normal (Normal); Ketone-Dipstick Negative (Negative); Leukocyte Esterase-Dipstick Negative /ul (Negative); Nitrite-Dipstick Negative (Negative); Occult Blood-Urine Negative /ul (Negative); Protein-Dipstick Negative (Negative); Urine Bilirubin Dipstick Negative (Negative); Urine Clarity Sl. Cloudy (Clear); Urine Urobilinogen Normal (Normal)
[2020-11-07 09:15] LABS: Squamous Epithelial Cells - UA 0-5 SEEN /hpf (0-5)
[2020-11-07 09:28] LABS: Microalbumin,Random Urine 6.2 mg/L (NO RANGE EST.); Microalbumin:Creatinine Ratio 8.1 mg/g CRE (<30 mg/g CRE)
[2020-11-07 10:04] LABS: ALB/GLOB Ratio 1.1 RATIO (0.9-2.4); AST(SGOT) 30 U/L (15-37); Alanine Aminotransfer ALT/SGPT 33 U/L (16-61); Albumin, Serum 3.5 g/dL (3.2-5.0); Alkaline Phosphatase 66 U/L (45-117); Anion Gap 5 (5-15); BUN 16 mg/dL (7-18); BUN/Creat Ratio 18.9 RATIO (10-20); Calcium,Total 8.8 mg/dL (8.5-10.1); Chloride 111 mmol/L (98-107); Cholesterol 247 mg/dL (200); Creatinine, Serum 0.85 mg/dL (0.70-1.30); EST Glomerular Filtration Rate 93 mL/min (>60); Est Glom Filt Rate - Afr Amer 112 mL/min (>60); Globulin 3.3 g/dL (2.2-4.2); Glucose 82 mg/dL (74-106); High Density Lipoprotein 45 mg/dL; Potassium 4.7 mmol/L (3.5-5.1); Protein, Total 6.8 g/dL (6.4-8.2); Sodium Level 142 mmol/L (136-145); Thyroid Stim Hormone (TSH) 3.22 uIU/mL (0.358-3.74); Triglycerides 118 mg/dL; Very Low Density Lipoprotein 24 mg/dL (5-40)
[2020-11-08 13:18] LABS: PSA, Total Ultrasensitive 6.4 ng/mL (0.0-4.0)
[2020-11-08 13:19] LABS: PSA, Free 0.22 ng/mL; PSA, Free % 3.4 % (.)
== END ==
PROVIDERS: PCP Internal Medicine; Referring Provider Internal Medicine; Visit Provider Internal Medicine
DX: I25.10 Atherosclerotic heart disease of native coronary artery without angina pectoris (principal); E78.5 Hyperlipidemia, unspecified; R97.20 Elevated prostate specific antigen [PSA]
CPT/HCPCS: 36415; 80053; 80061; 81001; 82043; 82570; 84153; 84154; 84443; 85025

== ENCOUNTER → 2021-05-29 10:54 | Outpatient (CLI) | payer MEDICARE, SELFPAY ==
[2020-12-08 07:59] VITALS: BMI 38.3
--- NOTE | 2021-05-29 10:56 | VDLE_ITS ---
Reason For Study: Pain in calf Procedure LEFT This is a venous duplex using B-mode, color CFV is compressible, spontaneous, phasic, flow and spectral Doppler. competent, and demonstrates normal Exam performed in department. augmentation. A preliminary report was called and/or faxed FV is compressible, spontaneous, phasic, to Hazel PINO. competent and demonstrates normal augmentation. POP V is compressible, spontaneous, phasic, competent and demonstrates normal augmentation. T/P Trunk is compressible. PTV is compressible. LT PerV is compressible. Acute superficial vein thrombosis is noted in the left GSV from prox thigh-distal calf. VL/Venous Duplex US, Unilateral Interpretation Summary Deep veins of the left lower extremity are patent and compressible segmentally. There is no evidence of left lower extremity deep vein thrombosis. Valvular competence appears intac t within the proximal deep venous system on the left . Acute superficial thrombophlebitis is noted in the left great saphenous vein from the proximal thigh to the distal calf. Ordering Physician: Maureen Martinez Referring Physician: Maureen Martinez Performed By: Desi Oneill RVT and Student
== END ==
PROVIDERS: PCP Internal Medicine; Referring Provider Internal Medicine; Visit Provider Internal Medicine
DX: M79.662 Pain in left lower leg (principal)
CPT/HCPCS: 93971

== ENCOUNTER → 2021-06-08 08:48 | Outpatient (CLI) | payer MEDICARE, SELFPAY ==
[2020-12-08 07:59] VITALS: BMI 38.3
--- NOTE | 2021-06-08 08:51 | ECHOCS_ITS ---
Reason For Study: CAD/ASHD Procedure This was a 2D Doppler, Color Flow transthoracic echocardiogram. The study was technically difficult. Due to body habitus. Contrast injection was performed. Exam performed in department. Left Ventricle Normal LV size. Left ventricular systolic function is normal. The estimated ejection fraction is 55 %. Stage 1 diastolic dysfunction. No regional wall motion abnormalities noted. Right Ventricle Normal RV size. Normal systolic function. Atria Normal left atrium. Normal right atrium. Mitral Valve Normal mitral valve. Tricuspid Valve The tricuspid valve is not well visualized. Aortic Valve The aortic valve is not well visualized. Pulmonic Valve The pulmonic valve is not well visualized. Great Vessels Mildly dilated aortic root. Pericardium/Pleural No pericardial effusion. Medication 22 gauge I.V. with prn adaptor inserted into left arm. Diluted definity 3.0ml given slow IV push to enhance endocardial definition. MMode/2D Measurements & Calculations LVIDd: 4.9 cm IVSd: 1.1 cm Ao root diam: 4.0 cm LVIDs: 3.3 cm LVPWd: 1.2 cm RVDd: 3.5 cm FS: 32.5 % LAV(MOD-bp): 50.5 ml LA A4 area: 16.1 cm2 LA dimension(2D): 4.0 cm LAV(MOD-bp) Indexed: 22.9 ml/m2 LAV(MOD-sp2): 51.0 ml LAV(MOD-sp4): 42.6 ml RA A4 area: 14.6 cm2 Time Measurements MV dec time: 0.20 sec Doppler Measurements & Calculations MV E max ousmane: 86.5 cm/sec Lat Peak E' Ousmane: 7.2 cm/sec Med Peak E' Ousmane: 4.8 cm/sec MV A max ousmane: 88.1 cm/sec E/E' lat: 12.1 E/E' med: 18.1 MV E/A: 0.98 Ao V2 max: 143.1 cm/sec LV V1 max: 72.2 cm/sec PA V2 max: 80.0 cm/sec Ao max P.2 mmHg LV V1 max P.1 mmHg TR max ousmane: 214.2 cm/sec TR max P.3 mmHg ECHO/Echo Complete W/ Contrast Interpretation Summary Normal LV size. Left ventricular systolic function is normal. The estimated ejection fraction is 55 %. Stage 1 diastolic dysfunction. Contrast injection was performed. Ordering Physician: Maureen Martinez Referring Physician: Maureen Martinez Performed By: Yakelin Saenz, NAVI, RVT
--- NOTE | 2021-06-08 08:51 | VDLE_ITS ---
Reason For Study: blood clot Procedure LEFT This is a venous duplex using B-mode, color CFV is compressible, spontaneous, phasic, flow and spectral Doppler. competent, and demonstrates normal Exam performed in department. augmentation. The exam was abbreviated due to the COVID 19 FV is compressible, spontaneous, phasic, protocol. competent and demonstrates normal The exam was diagnostic. augmentation. A preliminary report was called and/or faxed POP V is compressible, spontaneous, phasic, to [facility] nurse. competent and demonstrates normal augmentation. T/P Trunk is compressible. PTV is compressible. LT PerV is compressible. Acute superficial vein thrombosis is noted in the left GSV from prox thigh-distal calf. Gastroc V is now dilated and noncompressible. New finding from previous study done 05/29/21. VL/Venous Duplex US, Unilateral Interpretation Summary Acute deep vein thrombosis is noted in the left gastrocnemius vein. The remaind er of the left lower extremity deep venous system is patent and compressible. Valvular competence ap pears intact within the proximal deep venous system on the left . Acute superficial thrombophlebiti s is noted in the left great saphenous vein from the proximal thigh to the distal calf. The devel opment of acute deep vein thrombosis in the left gastrocnemius vein is a new finding since a prior s tudy on 05/29/2021. Ordering Physician: Maureen Martinez Performed By: Laureano Ayala RVT
== END ==
PROVIDERS: PCP Internal Medicine; Referring Provider Internal Medicine; Visit Provider Internal Medicine
DX: I25.10 Atherosclerotic heart disease of native coronary artery without angina pectoris (principal); M79.662 Pain in left lower leg; I82.402 Acute embolism and thrombosis of unspecified deep veins of left lower extremity
CPT/HCPCS: 93306; 93971; Q9957; C8929; J3490

== ENCOUNTER → 2021-06-16 09:37 | Outpatient (CLI) | payer MEDICARE, SELFPAY ==
[2020-12-08 07:59] VITALS: BMI 38.3
[2021-06-16 11:07] LABS: PSA,Total- Diagnostic 6.73 ng/mL (0.0-4.0)
== END ==
PROVIDERS: PCP Internal Medicine; Visit Provider Urology
DX: C61 Malignant neoplasm of prostate (principal)
CPT/HCPCS: 36415; 84153

== ENCOUNTER → 2021-08-14 08:24 | Outpatient (CLI) | payer MEDICARE, SELFPAY ==
[2021-08-14 10:40] LABS: Hematocrit 46.6 % (40-54); Hemoglobin 15.6 g/dL (13.0-16.5); Mean Corp Hgb Conc 33.5 g/dL (32-36); Mean Corpuscular Hgb 30.5 pg (27.0-32.0); Mean Corpuscular Volume 91.2 fL (80-94); Mean Platelet Vol. 9.8 fl (6.2-12.0); Platelet Count 204 K/mm3 (150-450); RBC Distribution Width CV 13.2 % (11.6-14.6); RBC Distribution Width SD 44.5 fl (35.1-43.9); Red Blood Count 5.11 M/mm3 (4.6-6.2); White Blood Count 8.3 K/mm3 (4.4-11.0)
== END ==
PROVIDERS: PCP Internal Medicine; Referring Provider Internal Medicine Pulmonary Disease; Visit Provider Internal Medicine Pulmonary Disease
DX: J45.909 Unspecified asthma, uncomplicated (principal)
CPT/HCPCS: 36415; 85027

== ENCOUNTER → 2021-08-21 09:06 | Outpatient (CLI) | payer MEDICARE, SELFPAY ==
[2021-08-21 10:54] LABS: PSA,Total- Diagnostic 7.58 ng/mL (0.0-4.0)
== END ==
PROVIDERS: PCP Internal Medicine; Referring Provider Urology; Visit Provider Urology
DX: C61 Malignant neoplasm of prostate (principal)
CPT/HCPCS: 36415; 84153

== ENCOUNTER 2022-01-19 08:47 | Outpatient (CLI) | payer MEDICARE, SELFPAY ==
[2022-01-19 09:56] LABS: BNP,B-Type NATRIURETIC PEPTIDE 28.7 pg/mL (0-100)
[2022-01-19 09:57] LABS: Anion Gap 5 (5-15); BUN 13 mg/dL (7-18); BUN/Creat Ratio 12.6 RATIO (10-20); Calcium,Total 9.5 mg/dL (8.5-10.1); Chloride 107 mmol/L (98-107); Creatinine, Serum 1.03 mg/dL (0.70-1.30); EST Glomerular Filtration Rate 74 mL/min (>60); Est Glom Filt Rate - Afr Amer 89 mL/min (>60); Glucose 88 mg/dL (74-106); Sodium Level 139 mmol/L (136-145)
== END 2022-01-19 23:59 | disposition home or self-care (01) ==
LOC: LAB 08:49
PROVIDERS: Nurse Practitioner Family; PCP Internal Medicine; Referring Provider Urology; Visit Provider Urology
DX: R97.21 Rising PSA following treatment for malignant neoplasm of prostate (principal); R06.00 Dyspnea, unspecified; I25.10 Atherosclerotic heart disease of native coronary artery without angina pectoris; I45.10 Unspecified right bundle-branch block; I10 Essential (primary) hypertension; E78.00 Pure hypercholesterolemia, unspecified; Z95.5 Presence of coronary angioplasty implant and graft
CPT/HCPCS: 36415; 80048; 83880; 84153

== ENCOUNTER 2022-03-06 16:53 | Outpatient (CLI) | payer MEDICARE, SELFPAY ==
--- NOTE | 2022-03-06 08:00 | PROSBIL_PTH ---
PATIENT: DAYDAY GUZMÁN LOC: [facility] U#:[id number] AGE/SX: 82/M ROOM: RE03/06/[address]: Dr. Gold Penny MD : [id number] BED: DIS: 03/06/2022 SPEC #: [id number] RECD: 03/06/22 17:03 STATUS: PRASHANTH REDianne #: [id number] SARAHY: 03/06/22 08:[address]: Gold Penny DEPT: SURGICAL PATHOLOGY RECD BY: Chiara Martínez ENTERED: 03/07/22 11:05 SP TYPE: PROST BX PRIMO DR: Dr. Maureen Martinez DO Tissues: A - PROSTATE RIGHT B - PROSTATE RIGHT C - PROSTATE RIGHT D - PROSTATE LEFT E - PROSTATE LEFT F - PROSTATE LEFT Procedures: PROSTATE BX HEADER OPERATION: Prostate biopsy PRE-OP DIAGNOSIS: Elevated PSA TISSUE SUBMITTED: A - Right apex, B - Right mid, C - Right base, D - Left apex, E - Left mid, F - Left base MICROSCOPIC DIAGNOSIS A. Right prostate, apex, core biopsy: Adenocarcinoma. [place] grade: 6 (3+3) Cores involved: 1 out of 1 Tissue involved: 90% Greatest tumor length: 7 millimeters Perineural invasion: Present B. Right prostate, mid, core biopsy: Adenocarcinoma. [place] grade: 6 (3+3) Cores involved: 1 out of 1 Tissue involved: 60% Greatest tumor length: 7.5 millimeters Perineural invasion: Present C. Right prostate, base, core biopsy: Adenocarcinoma. [place] grade: 7 (3+4) Cores involved: 1 out of 1 Tissue involved: 65% Greatest tumor length: 8 millimeters (discontinuous) D. Left prostate, apex, core biopsy: Adenocarcinoma. [place] grade: 6 (3+3) Cores involved: 1 out of 1 Tissue involved: 60% Greatest tumor length: 6.8 millimeters Perineural invasion: Present E. Left prostate, mid, core biopsy: Adenocarcinoma. [place] grade: 7 (3+4) Cores involved: 1 out of 1 Tissue involved: 35% Greatest tumor length: 8 millimeters (discontinuous) Perineural invasion: Present F. Left prostate, base, core biopsy: Adenocarcinoma. [place] grade: 7 (3+4) Cores involved: 1 out of 1 Tissue involved: 60% Greatest tumor length: 4 millimeters (discontinuous) Perineural invasion: Present AM:kandace 03/08/2022 COMMENT Reference is made to the patient's previous prostate biopsy from 2013 ([id number]) in which prostatic adenocarcinoma was identified. Case has been reviewed in consultation with Dr. Torres who concurs with the above diagnosis. IDC:[email or web address] MICROSCOPIC DESCRIPTION Slides are reviewed. GROSS DESCRIPTION A - Received is one container designated prostate, right apex. The specimen consists of one elongated fragment of light moreira-white soft tissue measuring 1.5 cm in length and 0.1 cm in diameter. The specimen is totally submitted in one cassette. B - Received is one container designated prostate, right mid. The specimen consists of one elongated fragment of light moreira-white soft tissue measuring 1.8 cm in length and 0.1 cm in diameter. The specimen is totally submitted in one cassette. C - Received is one container designated prostate, right base. The specimen consists of one elongated fragment of light moreira-white soft tissue measuring 1.5 cm in length and 0.1 cm in diameter. The specimen is totally submitted in one cassette. D - Received is one container designated prostate, left apex. The specimen consists of one elongated fragment of light moreira-white soft tissue measuring 1.5 cm in length and 0.1 cm in diameter. The specimen is totally submitted in one cassette. E - Received is one container designated prostate, left mid. The specimen consists of one elongated fragment of light moreira-white soft tissue measuring 1.8 cm in length and 0.1 cm in diameter. The specimen is totally submitted in one cassette. F - Received is one container designated prostate, left base. The specimen consists of one elongated fragment of light moreira-white soft tissue measuring 1.7 cm in length and 0.1 cm in diameter. The specimen is totally submitted in one cassette. / SJ:rg 03/07/2022 TC:0 CPT: G0146
== END 2022-03-06 23:59 | disposition home or self-care (01) ==
LOC: LABSPEC 16:55
PROVIDERS: PCP Internal Medicine; Referring Provider Urology; Visit Provider Urology
DX: R97.20 Elevated prostate specific antigen [PSA] (principal); C61 Malignant neoplasm of prostate
CPT/HCPCS: 88305; G0416

== ENCOUNTER → 2022-07-03 | Outpatient (CLI) | payer MEDICARE, SELFPAY ==
[2022-07-03 10:04] LABS: PSA,Total- Diagnostic 0.09 ng/mL (0.0-4.0)
== END | disposition home or self-care (01) ==
LOC: LAB 09:08
PROVIDERS: PCP Internal Medicine; Referring Provider Urology; Visit Provider Urology
DX: C61 Malignant neoplasm of prostate (principal)
CPT/HCPCS: 36415; 84153

== ENCOUNTER → 2022-12-12 | Outpatient (CLI) | payer MEDICARE, SELFPAY | END | disposition home or self-care (01) | LOC: PSN 11:59 | PROVIDERS: PCP Internal Medicine; Visit Provider Nurse Practitioner Family | DX: I25.10 Atherosclerotic heart disease of native coronary artery without angina pectoris (principal); I47.1 Supraventricular tachycardia; I45.10 Unspecified right bundle-branch block; R00.1 Bradycardia, unspecified | CPT/HCPCS: 93225; 93226 ==

== ENCOUNTER 2022-12-16 07:31 | Emergency (ER) | payer MEDICARE, SELFPAY ==
[2022-12-16 07:32] VITALS: BP 172/80; PULSE 54; RESP 20; TEMP 35.9; O2SAT 98; BMI 38.7
--- NOTE | 2022-12-16 07:35 | EKG12_ITS ---
Test Reason : SOB Blood Pressure : / mmHG Vent. Rate : 055 BPM Atrial Rate : 055 BPM P-R Int : 188 ms QRS Dur : 152 ms QT Int : 432 ms P-R-T Axes : 000 003 013 degrees QTc Int : 413 ms Sinus bradycardia with sinus arrhythmia Right bundle branch block Cannot rule out Inferior infarct , age undetermined Abnormal ECG Confirmed by MARCELA WAGNER, XU ([id number]), editor publications ARMANI SANDOVAL ([id number]) on 12/18/2022 9:33:44 AM Referred By: Confirmed By:XU MEDRANO MD
--- NOTE | 2022-12-16 07:39 | EDS_ITS ---
HPI History of Present Illness Chief Complaint: Shortness of Breath Detail of Chief Complaint: Wore out and skipped beats Informant: patient and EMS Onset/Context/Timing Onset: Today Context: Sudden Onset Timing: Intermittent Quality: Skipped beats Location: Chest Current Severity: Gone Maximum Severity: Moderate Worsened by: Nothing Relieved by: Nothing Associated Symptoms Associated Symptoms: Wore out Narrative Narrative: Patient is an 82-year-old male with history of coronary disease with a drug- eluting stent placed in the LAD in 2010 and a drug-eluting stent placed in the RCA 2016 with history of congestive heart failure, PSVT status post ablation as well as hypertension hyperlipidemia. Patient arrived by ambulance because of feeling worn ouy. Paramedics informing that he took a nitroglycerin. He did not voice chest discomfort or shortness of breath. Patient informed me that he was feeling skipped beats. He was not able to go to sleep until 3 AM. He awoke this morning. He states he felt worn out last evening. He denied chest discomfort of any type last evening, this morning or in the past week. He denied shortness of breath, diaphoresis, nausea or vomiting. He denies orthopnea or PND. He does admit that he took a nitroglycerin. Asked why he took it and he informed me because I was having skipped beats . He states it did make him feel better. He is on aspirin. He denies black or maroon-colored stool. Review of prior records indicates no history of peptic ulcer disease. He does have remote history of DVT, June 2021. He denies fever, chills night sweats. He denies weight gain or weight loss. He denies ocular, visual or auditory symptoms. He denies abdominal discomfort. He denies urologic symptoms. He denies swelling of his legs. He denies symptoms consistent of claudication. Prior similar symptoms: Yes (Patient had a Holter monitor applied and states he dropped off the monitor ) Recent Illness/Hospitalization: No PFSH PFS Medical History Anemia Asthma Asthma Atherosclerotic heart disease of [place] coronary artery without angina pectoris Bilateral carotid bruits COVID-19 virus detected (09/30/20) DVT (deep venous thrombosis) (~06/2021) Essential (primary) hypertension Family history of coronary artery disease Fatigue Hyperlipidemia [facility] use of drug Multiple premature ventricular complexes Old myocardial infarction Palpitations Paroxysmal supraventricular tachycardia Premature ventricular contractions Productive cough Prostate cancer Right bundle branch block (RBBB) Shortness of breath Wheezing Home Medications aspirin 325 mg tablet 325 mg PO DAILY 10/10/21 [History Last Taken Unknown] nitroglycerin 0.4 mg sublingual tablet 0.4 mg sublingual Q5-15M PRN chest pain #25 tabs 10/10/21 [Rx Last Taken Unknown] Allergy/AdvReac Type Severity Reaction Status Date / Time rosuvastatin [From Crestor] AdvReac Severe Myalgias Verified 12/16/22 07:37 atorvastatin AdvReac Intermediate Can't Sleep Verified 12/16/22 07:37 Family History Mother , age 58 [place] Myocardial infarction CAD (coronary artery disease) Father , of blood disorder Bleeding disorder Other Family history of coronary artery disease Surgical History History of coronary artery stent placement (03/23/16) History of left heart catheterization (03/2016) History of radiofrequency ablation procedure for cardiac arrhythmia (09/2016) Social History (Updated 12/16/22 @ 07:[address] Kiran Suh MD) household members: none Smoking Status: Never smoker alcohol intake: never substance use type: does not use caffeine: Yes (about 2 times per week) Type: coffee ROS ROS ED Constitutional Constitutional ED: Denies chills, fever(s), subjective, sweats or weight loss Eyes Eyes: Denies blurry vision, change in vision or diplopia ENT ENT ED: Denies ear pain, rhinorrhea or sore throat Cardiovascular Cardiovascular: Reports palpitations; Denies chest pain, orthopnea, paroxysmal nocturnal dyspnea or racing heartbeat Respiratory/Chest Respiratory/Chest: Denies cough, dyspnea, dyspnea on exertion, orthopnea or paroxysmal nocturnal dyspnea Gastrointestinal Gastrointestinal: Denies abdominal pain, constipation, diarrhea, melena, nausea or vomiting Genitourinary Genitourinary ED: Denies dysuria, hematuria or urinary frequency Musculoskeletal Musculoskeletal: Denies arthralgias, back pain, myalgias or neck pain Neurologic Neurologic: Reports weakness; Denies headache(s) or paresthesias Psychiatric Psychiatric: Denies anxiety or depression Endocrine Endocrinology: Denies polydipsia or polyuria Hematologic/Lymphatic Hematologic/Lymphatic: Reports systems reviewed and no addt'l complaints, except as documented EXAM Physical Exam Const Vital Signs: 12/16/22 07:32 12/16/22 07:44 Temperature 96.6 F L Temperature Source Oral Pulse Rate 54 L Respiratory Rate 20 H Respiratory Effort Normal Respiratory Depth Normal Respiratory Pattern Normal Blood Pressure 172/80 H Blood Pressure Mean 110 Pulse Ox 98 Oxygen Delivery Method Room Air Room Air Positive well nourished, well developed and obese General Appearance ED: well developed and NAD; Negative for cyanotic, diaphoretic or pallor Nutritional Appearance: obese HEENT Reports moist mucous membranes HEENT Narrative: Head is atraumatic normocephalic. Ears normal. Nares patent. Uvula midline. No deviation with protrusion. Patient is hard of hearing. Eyes PERRL and EOMs intact bilaterally General Eye ED: Negative for pale conjunctiva or scleral icterus Neck no lymphadenopathy, supple and no JVD Chest Wall inspection of chest normal and palpation of chest normal Resp normal respiratory effort and clear to auscultation bilaterally Cardio regular rhythm, S1 normal heart sound, S2 normal heart sound and no murmurs Rate: bradycardia GI normal to inspection, nondistended, normoactive bowel sounds, non-tender, non- distended and no masses; Negative for hepatosplenomegaly Palpation: soft Back/Spine no CVA tenderness Back/Spine Narrative: Inspection of the back is unremarkable. There is no tenderness Extremity normal to inspection Extremity Narrative: There is no asymmetry, swelling, discoloration, leg vein distention, palpable cords or tenderness along the distribution of the deep venous system.. DP and PT pulse are palpable and symmetric. General Extremety ED: Negative for edema or tenderness General Extremity: Negative for edema Neuro oriented x3, CN's II-XII intact bilaterally and no sensory deficits noted Sensorium / Orientation: alert Psych mental status grossly normal Skin no rashes or lesions noted, no wounds and skin turgor normal General Skin Exam: Negative for jaundice or pallor MDM MDM MDM Narrative Medical decision making narrative: The patient is an elderly male with history of coronary disease, hypertension, hyperlipidemia who recently had a Holter monitor placed per his digital advertising specialist. Results are not available. Office records were reviewed. Last office visit was January 2022. Reveals that patient has history of coronary disease with stent LAD placed in 2010 and stent RCA placed in 2016. There is minimal in stent stenosis of the LAD. He also has history congestive heart failure, PSVT status post ablation. With history of coronary disease risk factors and improvement after nitroglycerin will obtain EKG, troponin, CBC to rule out anemia even though clinically he does not appear anemic. Also will obtain basic metabolic panel to assess renal function, electrolytes and specifically potassium since he is complaining of palpitations/skipped beats. Monitor reveals a sinus bradycardia rate in the upper 50s. There is a history of atrial fibrillation. He presently is not on an anticoagulant. With a normal troponin normal electrolytes normal CBC plan is to discharge patient to follow-up with his digital advertising specialist regarding Holter monitor. Patient had no ectopy during his stay in the emergency department. Because of his fatigue is unknown. He is not anemic. Lab Data Attestation: I reviewed the patient's lab results. Lab results narrative: CBC is unremarkable. Hemoglobin is slightly elevated. There is no significant difference from prior. Basic metabolic panel is normal. Troponin is normal. Labs: Laboratory Results - last 24 hr 12/16/22 12/16/22 07:41 07:41 WBC 8.8 RBC 5.62 Hgb 16.9 H Hct 52.0 MCV 92.5 MCH 30.1 MCHC 32.5 RDW Std Deviation 43.8 RDW Coeff of Radha 12.9 Plt Count 245 MPV 9.3 Immature Gran % (Auto) 0.500 Neut % (Auto) 60.1 Lymph % (Auto) 27.6 [place] % (Auto) 7.9 Eos % (Auto) 3.4 Baso % (Auto) 0.5 Absolute Neuts (auto) 5.3 Absolute Lymphs (auto) 2.42 Nucleated RBC % 0 Sodium 139 Potassium 4.1 Chloride 106 Carbon Dioxide 29.0 Anion Gap 4 L BUN 14 Creatinine 1.07 Estim Creat Clear Calc 50.62 Est GFR (MDRD) Af Amer 85 Est GFR (MDRD) Non-Af 70 BUN/Creatinine Ratio 13.1 Glucose 100 Calcium 10.1 Troponin I High Sens 8 Rhythm Strip Rhythm Strip: Sinus bradycardia Rate: 57 Ectopy: None EKG Initial EKG: Attestation: I personally reviewed and interpreted this EKG as follows: Interpretation: Sinus Bradycardia (Ventricular rate is 55. QRS morphology consistent with right bundle branch block. History of right bundle branch block. [place] interval is 188 ms. Cures duration 152 ms. QT duration is 432 ms. [place] is normal. There is artifact with a flipped T wave in lead III which is unremarkable. There is no ) Prior: Unchanged Discharge Plan Triage Chief Complaint: Shortness of Breath ED Provider: Kiran Suh Dx/Rx/DC Orders Clinical Impression: Skipped heart beats, Atherosclerotic heart disease of [place] coronary artery without angina pectoris, Essential (primary) hypertension, Right bundle branch block (RBBB), Fatigue, Sinus bradycardia Instructions: ED About Arrhythmias, ED Weakness (Uncertain Cause) Prescriptions: No Action aspirin 325 mg tablet 325 mg PO DAILY nitroglycerin 0.4 mg tablet, sublingual 0.4 mg sublingual Q5-15M PRN (Reason: chest pain) Qty: 25 3RF Rx Instructions: do not exceed 3 doses per episode Primary Care Provider: Maureen Martinez Referrals: Luis Bowser MD [Med Staff - Active Staff] - 1-2 Weeks Maureen Martinez DO [Primary Care Provider] - 3-5 Days if not improving Disposition Disposition: Home, Self Care
[2022-12-16 07:44] VITALS: O2SAT 98
[2022-12-16 07:57] LABS: Absolute Lymphocyte Count 2.42 X10^3/uL (0.83-4.51); Absolute Neutrophil Count 5.3 X10^3/uL (2.0-7.7); Basophil# 0.04 X10^3/uL; Basophil% 0.5 % (0-1); Eosinophils% 3.4 % (0-5); Hemoglobin 16.9 g/dL (13.0-16.5); Lymphocyte # 2.42 X10^3/ul (0.83-4.51); Lymphocyte % 27.6 % (19-41); Mean Corp Hgb Conc 32.5 g/dL (32-36); Mean Corpuscular Hgb 30.1 pg (27.0-32.0); Mean Corpuscular Volume 92.5 fL (80-94); Mean Platelet Vol. 9.3 fl (6.2-12.0); Monocyte# 0.69 X10^3/uL; Monocyte% 7.9 % (0-10); NRBC Flagged by Analyzer 0 % (0-5); Neutrophil # 5.27 X10^3/uL (2.7-7.7); Neutrophil % 60.1 % (47-70); Platelet Count 245 K/mm3 (150-450); RBC Distribution Width CV 12.9 % (11.6-14.6); RBC Distribution Width SD 43.8 fl (35.1-43.9); Red Blood Count 5.62 M/mm3 (4.6-6.2); White Blood Count 8.8 K/mm3 (4.4-11.0)
[2022-12-16 08:02] LABS: Anion Gap 4 (5-15); BUN 14 mg/dL (7-18); BUN/Creat Ratio 13.1 RATIO (10-20); Calcium,Total 10.1 mg/dL (8.5-10.1); Chloride 106 mmol/L (98-107); Creatinine, Serum 1.07 mg/dL (0.70-1.30); EST Glomerular Filtration Rate 70 mL/min (>60); Est Glom Filt Rate - Afr Amer 85 mL/min (>60); Estimated Creatinine Clearance 50.62 ml/min; Glucose 100 mg/dL (74-106); Potassium 4.1 mmol/L (3.5-5.1); Sodium Level 139 mmol/L (136-145); Troponin-I HS 8 pg/mL (3.0-78.0)
[2022-12-16 08:18] VITALS: BP 161/87; PULSE 53; RESP 16; O2SAT 96
== END 2022-12-16 08:51 | disposition home or self-care (01) ==
PROVIDERS: Emergency Provider Emergency Medicine; PCP Internal Medicine; Visit Provider Emergency Medicine
DX: R00.1 Bradycardia, unspecified (principal); I11.0 Hypertensive heart disease with heart failure; I50.9 Heart failure, unspecified; I47.1 Supraventricular tachycardia; Z95.5 Presence of coronary angioplasty implant and graft; E78.5 Hyperlipidemia, unspecified; I45.10 Unspecified right bundle-branch block; I25.10 Atherosclerotic heart disease of native coronary artery without angina pectoris; R06.02 Shortness of breath; E66.9 Obesity, unspecified
CPT/HCPCS: 80048; 84484; 85025; 93005; 99285

== ENCOUNTER → 2022-12-20 | Outpatient (CLI) | payer MEDICARE, SELFPAY ==
[2022-12-20 15:25] LABS: Anion Gap 7 (5-15); BUN 18 mg/dL (7-18); BUN/Creat Ratio 20.7 RATIO (10-20); Calcium,Total 8.9 mg/dL (8.5-10.1); Chloride 109 mmol/L (98-107); Creatinine, Serum 0.87 mg/dL (0.70-1.30); EST Glomerular Filtration Rate 90 mL/min (>60); Est Glom Filt Rate - Afr Amer 108 mL/min (>60); Glucose 124 mg/dL (74-106); Sodium Level 138 mmol/L (136-145)
== END | disposition home or self-care (01) ==
LOC: LAB 14:10
PROVIDERS: PCP Internal Medicine; Referring Provider Nurse Practitioner Gerontology; Visit Provider Nurse Practitioner Gerontology
DX: R06.00 Dyspnea, unspecified (principal); R07.9 Chest pain, unspecified; R53.83 Other fatigue; Z95.5 Presence of coronary angioplasty implant and graft
CPT/HCPCS: 80048; 83880

== ENCOUNTER → 2023-01-03 | Outpatient (CLI) | payer MEDICARE, SELFPAY ==
[2023-01-03 11:28] LABS: PSA,Total- Diagnostic 5.54 ng/mL (0.0-4.0)
== END | disposition home or self-care (01) ==
LOC: LAB 09:50
PROVIDERS: PCP Internal Medicine; Visit Provider Urology
DX: R97.21 Rising PSA following treatment for malignant neoplasm of prostate (principal)
CPT/HCPCS: 36415; 84153

== ENCOUNTER → 2023-01-24 | Outpatient (CLI) | payer MEDICARE, SELFPAY ==
--- NOTE | 2023-01-24 09:37 | NM_ITS ---
CLINICAL: 82-year-old male with history of primary prostate carcinoma. WHOLE BODY 99m Tc MDP RADIONUCLIDE BONE SCINTIGRAPHY COMPARISON: Previous whole body bone scintigraphy study dated 09/30/2017 FINDINGS: Following the intravenous administration of 24.7 mCi of 99m Tc MDP, whole body bone images reveal: 1. Increased radiopharmaceutical concentration is currently defined in the bilateral wrists, the visualized left hand, the acromioclavicular, sternoclavicular, glenohumeral compartments of both shoulders, the knees bilaterally, the fifth lumbar vertebra and seventh and ninth thoracic vertebra posteriorly on the left, the visualized bilateral midfoot. 2. The remaining skeletal structures are scintigraphically unremarkable with normal-appearing renal images and urinary bladder activity identified. NM/Bone Scan Whole Body IMPRESSION: 1. The increase in radiopharmaceutical defined in the bilateral shoulders, wrists, the left hand, both knee articulations, the thoracic and lumbar spine, the right-left midfoot is consistent with degenerative arthrosis. 2. Overall compared to the previous whole body bone scintigraphy study dated 09/30/2017, there is minimal interval change. There is no scintigraphic evidence of diffuse axial skeletal metastatic disease on the current examination. Electronically Signed: Jose De La Cruz, at 0:29 EST ,
== END | disposition home or self-care (01) ==
LOC: NM 09:36
PROVIDERS: PCP Internal Medicine; Referring Provider Urology; Visit Provider Urology
DX: C61 Malignant neoplasm of prostate (principal)
CPT/HCPCS: 78306; A9503

== ENCOUNTER → 2023-01-28 | Outpatient (CLI) | payer MEDICARE, SELFPAY ==
--- NOTE | 2023-01-28 07:04 | ECHOCS_ITS ---
Reason For Study: Dyspnea/SOB Procedure This was a 2D Doppler, Color Flow transthoracic echocardiogram. The study was technically difficult. Contrast injection was performed. Exam performed in department. Left Ventricle Normal LV size. Left ventricular systolic function is normal. The estimated ejection fraction is 60 %. Stage 1 diastolic dysfunction. No regional wall motion abnormalities noted. Right Ventricle Normal RV size. Normal systolic function. Pulmonic Valve The pulmonic valve is not well visualized. Great Vessels Normal aortic root. Pericardium/Pleural No pericardial effusion. Medication 20 gauge I.V. with prn adaptor inserted into right arm. Diluted definity 3ml given slow IV push to enhance endocardial definition. MMode/2D Measurements & Calculations LVIDd: 5.2 cm IVSd: 1.1 cm Ao root diam: 3.5 cm LVIDs: 3.8 cm LVPWd: 0.95 cm LA dimension: 3.7 cm FS: 26.7 % LAV(MOD-bp): 39.5 ml LA A4 area: 14.2 cm2 LAV(MOD-bp) Indexed: 18.0 ml/m2 LAV(MOD-sp2): 49.0 ml LAV(MOD-sp4): 32.0 ml Time Measurements MV dec time: 0.20 sec Doppler Measurements & Calculations MV E max chandler: 64.3 cm/sec MV V2 max: 102.5 cm/sec MV dec slope: 331.9 cm/sec2 MV A max chandler: 104.7 cm/sec MV max P.2 mmHg MV E/A: 0.61 MV V2 mean: 42.8 cm/sec MV mean P.99 mmHg MV V2 VTI: 30.4 cm Ao V2 max: 151.3 cm/sec LV V1 max: 88.0 cm/sec PA V2 max: 77.2 cm/sec Ao max P.2 mmHg LV V1 max P.1 mmHg LV V1 mean P.6 mmHg LV V1 mean: 59.2 cm/sec LV V1 VTI: 22.6 cm ECHO/Echo Complete W/ Contrast Interpretation Summary Normal LV size. Left ventricular systolic function is normal. The estimated ejection fraction is 60 %. Stage 1 diastolic dysfunction. The study was technically limited. The study was technically difficult. Contras t injection was performed. Ordering Physician: Nataly Hewitt Referring Physician: Maureen Martinez M.D. Performed By: Daniel Garcia RCS
--- NOTE | 2023-01-28 17:00 | STRESSREP_ITS ---
Stress Test Report Exercise myocardial perfusion stress test. 82-year-old man with a history of dyspnea Stress protocol: Resting EKG demonstrates normal sinus rhythm with a rate of 51 bpm resting blood pressure is 110/78 mmHg. The patient exercised according to the regular Marco protocol for a total duration of 4 minutes and 21 seconds attaining a maximum he art rate of 120 bpm which was 86% of maximum predicted heart rate; the maximum workload was 7 metabolic equivalents. At rest there were no ST or T wave changes noted to suggest ischemia and at peak exercise upsloping ST changes only were noted which did not meet the criteria for ischemia. No clinical angina was noted the test was terminated due to the target heart rate being achieved/fatigue. The peak blood pressure was 142/70 mmHg. Rate-pressure product was 13,300. Myocardial perfusion protocol. 14.9 mCi of technetium 99m sestamibi was injected at rest. The patient exercised according to regular Marco protocol for total duration of 4 minutes and 21 seconds and at peak exercise 44.8 mCi of technetium 99m sestamibi was injected stress images were obtained stress and rest images were reconstructed in comparing the short axis vertical long and horizontal long axis. Gated images were also obtained. Perfusion SPECT analysis: Review of the stress images demonstrate normal uptake of tracer noted in all areas of the myocardium. The resting images similarly demonstrate normal uptake of tracer noted in all areas of the myocardium. No areas of reversibility are noted to suggest ischemia no previous infarct was noted. Gated SPECT analysis: The gated ejection fraction is 57%. Conclusion: Normal exercise myocardial perfusion stress test at a moderate workload Normal ejection fraction.
== END | disposition home or self-care (01) ==
PROVIDERS: PCP Internal Medicine; Referring Provider Nurse Practitioner Gerontology; Visit Provider Nurse Practitioner Gerontology
DX: R07.9 Chest pain, unspecified (principal); R53.83 Other fatigue; R06.00 Dyspnea, unspecified; R06.02 Shortness of breath; Z95.5 Presence of coronary angioplasty implant and graft
CPT/HCPCS: 78452; 93017; 93306; A9500; Q9957; A4216; C8929

== ENCOUNTER → 2023-04-04 | Outpatient (CLI) | payer MEDICARE, SELFPAY ==
[2023-04-04 11:41] LABS: PSA,Total- Diagnostic 0.13 ng/mL (0.0-4.0)
== END | disposition home or self-care (01) ==
LOC: LAB 09:53
PROVIDERS: PCP Internal Medicine; Referring Provider Urology; Visit Provider Urology
DX: R97.20 Elevated prostate specific antigen [PSA] (principal)
CPT/HCPCS: 36415; 84153

== ENCOUNTER → 2023-07-11 | Outpatient (CLI) | payer MEDICARE, SELFPAY ==
[2023-07-11 11:25] LABS: Absolute Lymphocyte Count 2.18 X10^3/uL (0.83-4.51); Absolute Neutrophil Count 5.2 X10^3/uL (2.0-7.7); Basophil# 0.05 X10^3/uL; Basophil% 0.6 % (0-1); Eosinophil# 0.36 X10^3/uL; Eosinophils% 4.2 % (0-5); Hematocrit 42.6 % (40-54); Hemoglobin 14.1 g/dL (13.0-16.5); Lymphocyte # 2.18 X10^3/ul (0.83-4.51); Lymphocyte % 25.3 % (19-41); Mean Corp Hgb Conc 33.1 g/dL (32-36); Mean Corpuscular Hgb 30.7 pg (27.0-32.0); Mean Corpuscular Volume 92.8 fL (80-94); Mean Platelet Vol. 9.1 fl (6.2-12.0); Monocyte# 0.81 X10^3/uL; Monocyte% 9.4 % (0-10); NRBC Flagged by Analyzer 0 % (0-5); Neutrophil # 5.18 X10^3/uL (2.7-7.7); Neutrophil % 60.2 % (47-70); Platelet Count 208 K/mm3 (150-450); RBC Distribution Width CV 13.1 % (11.6-14.6); RBC Distribution Width SD 43.9 fl (35.1-43.9); Red Blood Count 4.59 M/mm3 (4.6-6.2); White Blood Count 8.6 K/mm3 (4.4-11.0)
[2023-07-11 12:03] LABS: ALB/GLOB Ratio 0.9 RATIO (0.9-2.4); AST(SGOT) 19 U/L (15-37); Alanine Aminotransfer ALT/SGPT 24 U/L (16-61); Albumin, Serum 3.3 g/dL (3.2-5.0); Alkaline Phosphatase 80 U/L (45-117); Anion Gap 5 (5-15); BUN 19 mg/dL (7-18); BUN/Creat Ratio 15.6 RATIO (10-20); Chloride 108 mmol/L (98-107); Cholesterol 208 mg/dL (200); Creatinine, Serum 1.22 mg/dL (0.70-1.30); EST Glomerular Filtration Rate 60 mL/min (>60); Est Glom Filt Rate - Afr Amer 73 mL/min (>60); Globulin 3.7 g/dL (2.2-4.2); Glucose 96 mg/dL (74-106); High Density Lipoprotein 37 mg/dL; Potassium 4.1 mmol/L (3.5-5.1); Sodium Level 141 mmol/L (136-145); Thyroid Stim Hormone (TSH) 2.31 uIU/mL (0.358-3.74); Triglycerides 206 mg/dL; Very Low Density Lipoprotein 41 mg/dL (5-40)
[2023-07-11 12:05] LABS: PSA,Total- Diagnostic 0.11 ng/mL (0.0-4.0)
== END | disposition home or self-care (01) ==
LOC: LAB 10:56
PROVIDERS: PCP Internal Medicine; Referring Provider Internal Medicine; Visit Provider Internal Medicine
DX: I25.10 Atherosclerotic heart disease of native coronary artery without angina pectoris (principal); C61 Malignant neoplasm of prostate; Z51.81 Encounter for therapeutic drug level monitoring
CPT/HCPCS: 36415; 80053; 80061; 84153; 84443; 85025

== ENCOUNTER 2023-07-26 08:03 | Inpatient (IN) | payer MEDICARE, SELFPAY ==
[2023-07-26] VITALS (7 sets, daily range): BP systolic 116–162; BP diastolic 73–87; PULSE 56–79; RESP 12–18; TEMP 35.9–36.8; O2SAT 96–98; BMI 38.6; BMI 37.2
--- NOTE | 2023-07-26 08:28 | EDS_ITS ---
HPI History of Present Illness Chief Complaint: Syncope Informant: patient, family and EMS Narrative Narrative: Patient presents after syncopal episode. He states he got up at 4 AM this morning, he showered and took family to work, and came back home and at that point he had felt normal and fine. At one point when he was back home he was sitting down and he was feeling really poorly, lightheaded and weak, and apparently passed out. He does not remember this, but he came to and was amnestic to period of time and his was there and said look like he went to sleep. He states he felt really weak in the legs and so he searched for a pulse on himself. He was awake and remembers doing this. Not finding 1, he asked his to bring him in nitroglycerin, which he then took. He did not pass out again, but he has not been feeling well and has been a little disoriented since this occurred so he was brought to the ER by EMS. Patient denies any recent illness. Denies any recent bleeding or injury. [facility] Medical History Anemia Asthma Asthma Atherosclerotic heart disease of [place] coronary artery without angina pectoris Bilateral carotid bruits COVID-19 virus detected (09/30/20) DVT (deep venous thrombosis) (~06/2021) Essential (primary) hypertension Family history of coronary artery disease Fatigue Hyperlipidemia [facility] use of drug Multiple premature ventricular complexes Old myocardial infarction Palpitations Paroxysmal supraventricular tachycardia Premature ventricular contractions Productive cough Prostate cancer Right bundle branch block (RBBB) Shortness of breath Wheezing Home Medications aspirin 325 mg tablet 325 mg PO DAILY 10/10/21 [History Last Taken Unknown] metoprolol succinate 25 mg tablet,extended release 24 hr 12.5 mg (1/2 x 25 mg) PO DAILY #15 tabs 12/20/22 [Rx Last Taken Unknown] nitroglycerin 0.4 mg sublingual tablet 0.4 mg sublingual Q5-15M PRN chest pain #25 tabs 12/20/22 [Rx Last Taken Unknown] Allergy/AdvReac Type Severity Reaction Status Date / Time rosuvastatin [From Crestor] AdvReac Severe Myalgias Verified 03/11/23 15:38 atorvastatin AdvReac Intermediate Can't Sleep Verified 04/10/23 15:38 Family History Mother , age 58 [place] Myocardial infarction CAD (coronary artery disease) Father , of blood disorder Bleeding disorder Other Family history of coronary artery disease Surgical History History of coronary artery stent placement (03/23/16) History of left heart catheterization (03/2016) History of radiofrequency ablation procedure for cardiac arrhythmia (09/2016) Social History household members: none Smoking Status: Never smoker alcohol intake: never substance use type: does not use caffeine: Yes (about 2 times per week) Type: coffee ROS ROS ED Constitutional Constitutional ED: Denies chills or fever(s) Eyes Eyes: Denies change in vision or diplopia ENT ENT ED: Denies rhinorrhea or sore throat Cardiovascular Cardiovascular: Reports as per HPI, leg edema and syncope; Denies chest pain, palpitations or radiating jaw, neck or arm pain Respiratory/Chest Respiratory/Chest: Denies cough or dyspnea Gastrointestinal Gastrointestinal: Denies abdominal pain, diarrhea, nausea or vomiting Genitourinary Genitourinary ED: Denies dysuria or hematuria Musculoskeletal Musculoskeletal: Denies back pain or neck pain Integumentary Denies abscess or rash Neurologic Neurologic: Reports as per HPI; Denies headache(s), paresthesias or weakness Psychiatric Psychiatric: Denies anxiety or suicidal thoughts EXAM Physical Exam Const Vital Signs: 07/26/23 08:04 07/26/23 08:10 07/26/23 08:10 Temperature 96.7 F L Temperature Source Temporal Pulse Rate 77 64 Respiratory Rate 18 14 Respiratory Effort Normal Respiratory Pattern Normal Blood Pressure 146/87 H 146/87 H Blood Pressure Mean 106 106 Pulse Ox 97 97 Oxygen Delivery Method Room Air Room Air 07/26/23 08:26 07/26/23 10:03 Temperature Temperature Source Pulse Rate 64 Respiratory Rate 14 Respiratory Effort Respiratory Pattern Blood Pressure 134/73 H Blood Pressure Mean 93 Pulse Ox 98 Oxygen Delivery Method Room Air Room Air Positive well nourished, well developed and obese General Appearance ED: well developed and NAD Nutritional Appearance: obese HEENT Reports moist mucous membranes normocephalic and atraumatic Eyes PERRL and EOMs intact bilaterally Neck full ROM, no lymphadenopathy, supple and no JVD Chest Wall inspection of chest normal and palpation of chest normal Resp normal respiratory effort and clear to auscultation bilaterally Cardio regular rate, regular rhythm and no murmurs GI non-tender and non-distended Auscultation: normoactive bowel sounds Palpation: soft Back/Spine no CVA tenderness General Back: other FROM Extremity normal to inspection Extremity Narrative: Intact pulses x4 General Extremety ED: Negative for edema, pulses abnormal or tenderness General Extremity: Negative for edema or pulses abnormal Neuro oriented x3, CN's II-XII intact bilaterally and no sensory deficits noted Neuro Narrative: Normal speech no aphasia no dysarthria. Follows commands normally nonlateralizing neurologic exam. Sensorium / Orientation: awake and alert Motor Exam: general weakness Psych mental status grossly normal Psych Narrative: States that he feels disoriented Skin no rashes or lesions noted and no wounds MDM MDM MDM Narrative Medical decision making narrative: Wide differential here, patient does have mild/relative bradycardia, however he is usually in the 50s, according to a check he has had before even prior to being on a beta-wesley. Therefore, symptomatic bradycardia is not able to be ruled out, but thought to be less likely. Given that he has a history of DVT according to his chart, I also did a D-dimer considering possibility of pulmonary embolus. The D-dimer was very high leading to CT angiography, which shows bilateral pulmonary emboli. Discussed to me by the radiologist directly. The rest of his work-up was unremarkable until we repeated his troponin which went up to the abnormal range 119. His EKG is noted, it shows no acute injury pattern. There is no radiographic signs of strain on the CT per radiology, but given his age and these new findings, I think he should be admitted to the hospital for further work-up and evaluation. He is given Lovenox 1 mg/kg to anticoagulate him. He is doing well here at rest and even when we walked him gently, his pulse ox remained 96% on room air throughout and he had no chest discomfort or dyspnea. History & Record Review Additional record(s) reviewed:: Prior labs Lab Data Attestation: I reviewed the patient's lab results. Labs: Laboratory Results - last 24 hr 07/26/23 07/26/23 08:15 10:50 WBC 12.7 H RBC 4.96 Hgb 15.4 Hct 46.4 MCV 93.5 MCH 31.0 MCHC 33.2 RDW Std Deviation 44.0 H RDW Coeff of Radha 13.0 Plt Count 171 MPV 10.0 Immature Gran % (Auto) 0.400 Neut % (Auto) 76.9 H Lymph % (Auto) 12.5 L [place] % (Auto) 8.4 Eos % (Auto) 1.4 Baso % (Auto) 0.4 Absolute Neuts (auto) 9.8 H Absolute Lymphs (auto) 1.59 Nucleated RBC % 0 D-Dimer Quant (PE/DVT) 5.36 H* Sodium 139 Potassium 4.1 Chloride 111 H Carbon Dioxide 22.0 Anion Gap 6 BUN 23 H Creatinine 1.04 Estim Creat Clear Calc 51.20 Est GFR (MDRD) Af Amer 88 Est GFR (MDRD) Non-Af 73 BUN/Creatinine Ratio 22.1 H Glucose 110 H Calcium 9.4 Troponin I High Sens 42 119 H Radiography Diagnostic Testing: Clinical Impression(s) from Imaging Studies Chest CTA 07/26/23 09:43 IMPRESSION: Bilateral pulmonary emboli. Stable nodular opacity within the right middle lobe which may be secondary to atelectasis and/or scarring. Atherosclerosis. N.B. : The above Results were Read Back by Lilian Chaidez MD to Skyler Arredondo MD, and understanding confirmed on 07/26/2023 11:04:21 (ET). Electronically Signed: Lilian Chaidez MD at 11:05 EDT Reading Location ID and State: [facility] / [place] Tel , Service support , ADDENDUM: 07/26/23 1112 IMPRESSION: Bilateral pulmonary emboli. Stable nodular opacity within the right middle lobe which may be secondary to atelectasis and/or scarring. Atherosclerosis. N.B. : The above Results were Read Back by Lilian Chaidez MD to Skyler Arredondo MD, and understanding confirmed on 07/26/2023 11:04:21 (ET). Electronically Signed: Lilian Chaidez MD at 11:05 EDT , Rhythm Strip Rhythm Strip: Sinus Rhythm Rate: 63 Ectopy: None EKG Initial EKG: Attestation: I personally reviewed and interpreted this EKG as follows: Interpretation: Sinus Rhythm, No Acute Injury Pattern and RBBB Prior EKG tracings: available for review Prior: Unchanged Management Discussion w/another healthcare provider: Hospitalist and Radiologist Discharge Plan Triage Chief Complaint: Syncope ED Provider: Skyler Sepulveda Dx/Rx/DC Orders Clinical Impression: Syncope, Elevated troponin, Bilateral pulmonary embolism Prescriptions: No Action aspirin 325 mg tablet 325 mg PO DAILY nitroglycerin 0.4 mg tablet, sublingual 0.4 mg sublingual Q5-15M PRN (Reason: chest pain) Qty: 25 3RF Rx Instructions: do not exceed 3 doses per episode metoprolol succinate 25 mg tablet extended release 24 hr 12.5 mg PO DAILY Qty: 15 6RF Primary Care Provider: Maureen Martinez Referrals: Maureen Martinez DO [Primary Care Provider] -
[2023-07-26 08:46] LABS: Absolute Lymphocyte Count 1.59 X10^3/uL (0.83-4.51); Absolute Neutrophil Count 9.8 X10^3/uL (2.0-7.7); Basophil# 0.05 X10^3/uL; Basophil% 0.4 % (0-1); Eosinophil# 0.18 X10^3/uL; Eosinophils% 1.4 % (0-5); Hematocrit 46.4 % (40-54); Hemoglobin 15.4 g/dL (13.0-16.5); Lymphocyte # 1.59 X10^3/ul (0.83-4.51); Lymphocyte % 12.5 % (19-41); Mean Corp Hgb Conc 33.2 g/dL (32-36); Mean Corpuscular Volume 93.5 fL (80-94); Monocyte# 1.07 X10^3/uL; Monocyte% 8.4 % (0-10); NRBC Flagged by Analyzer 0 % (0-5); Neutrophil % 76.9 % (47-70); Platelet Count 171 K/mm3 (150-450); Red Blood Count 4.96 M/mm3 (4.6-6.2); White Blood Count 12.7 K/mm3 (4.4-11.0)
[2023-07-26 09:14] LABS: Anion Gap 6 (5-15); BUN 23 mg/dL (7-18); BUN/Creat Ratio 22.1 RATIO (10-20); Calcium,Total 9.4 mg/dL (8.5-10.1); Chloride 111 mmol/L (98-107); Creatinine, Serum 1.04 mg/dL (0.70-1.30); EST Glomerular Filtration Rate 73 mL/min (>60); Est Glom Filt Rate - Afr Amer 88 mL/min (>60); Glucose 110 mg/dL (74-106); Potassium 4.1 mmol/L (3.5-5.1); Sodium Level 139 mmol/L (136-145); Troponin-I HS (w/2H Reflex) 42 pg/mL (3.0-78.0)
--- NOTE | 2023-07-26 09:30 | ED.RN ---
dr. alexander aware of d-dimer 5.36
--- NOTE | 2023-07-26 09:43 | CT_ITS ---
STUDY: CTA CHEST REASON FOR EXAM: Male, 83 years old. Syncope, elevated d-dimer RADIATION DOSAGE (If Supplied By Facility): CTDIvol = ( 13.85 ) mGy, DLP = ( 495.13 ) mGycm TECHNIQUE: The examination was performed with the intravenous administration of IV 100mL Isovue-370. Post-processing of the angiographic images was performed, with multiplanar reformation and 3D reconstruction. Individualized dose optimization techniques were used for this CT. COMPARISON: Prior studies dated: February 07, 2015 and January 30, 2018 FINDINGS: Normal enhancement of the main pulmonary artery and right and left pulmonary arteries. There are filling defects within the distal pulmonary arteries consistent with pulmonary emboli associated with emboli within segmental and subsegmental pulmonary arteries throughout the upper and lower lobes. There is atherosclerotic calcification of the aortic arch and descending thoracic aorta. There is no demonstrated aortic dissection. There are calcifications of the coronary arteries. There is no evidence of right cardiac strain Normal mediastinum. Normal hilar regions. Normal visualized trachea and bronchi. Within the right middle lobe there is a stable subpleural 17 mm somewhat rounded opacity associated with curvilinear opacities. There are few bilateral granulomas. There is no new focal consolidation. Normal chest wall structures. There are degenerative changes of thoracic spine. Normal visualized upper abdomen. CT/CTA Chest W/WO Contrast IMPRESSION: Bilateral pulmonary emboli. Stable nodular opacity within the right middle lobe which may be secondary to atelectasis and/or scarring. Atherosclerosis. N.B. : The above Results were Read Back by Lilian Chaidez MD to Skyler Arredondo MD, and understanding confirmed on 07/26/2023 11:04:21 (ET). Electronically Signed: Lilian Chaidez MD at 11:05 EDT ,
[2023-07-26 10:42] LABS: Reflex Troponin-HS? (from REC) Y
[2023-07-26 11:23] LABS: Troponin-I HS 119 pg/mL (3.0-78.0)
--- NOTE | 2023-07-26 12:24 | PCM.HP.STD ---
HPI - General General Date of Admission: 07/26/23 Date of Service: 07/26/23 Chief Complaint: Passed out HPI Narrative DAYDAY GUZMÁN, is a 83 M presenting to the emergency department after passing out. Patient episode occurred at home per patient he was in his usual state of health till the morning of his admission when he woke up and did experience some lightheadedness. The left next thing he remembers he had passed out. The did call EMS squad was brought to the emergency department imaging studies demonstrated bilateral pulmonary embolism started on systemic anticoagulation admitted to a monitored bed for further management [facility] Medical History Anemia Asthma Asthma Atherosclerotic heart disease of [place] coronary artery without angina pectoris Bilateral carotid bruits COVID-19 virus detected (09/30/20) DVT (deep venous thrombosis) (~06/2021) Essential (primary) hypertension Family history of coronary artery disease Fatigue Hyperlipidemia [facility] use of drug Multiple premature ventricular complexes Old myocardial infarction Palpitations Paroxysmal supraventricular tachycardia Premature ventricular contractions Productive cough Prostate cancer Right bundle branch block (RBBB) Shortness of breath Wheezing Home Medications aspirin 325 mg tablet 325 mg PO DAILY 10/10/21 [History Last Taken 07/25/23] metoprolol succinate 25 mg tablet,extended release 24 hr 12.5 mg (1/2 x 25 mg) PO DAILY #15 tabs 12/20/22 [Rx Last Taken 07/25/23] nitroglycerin 0.4 mg sublingual tablet 0.4 mg sublingual Q5-15M PRN chest pain #25 tabs 12/20/22 [Rx Last Taken 07/26/23] Allergy/AdvReac Type Severity Reaction Status Date / Time rosuvastatin [From Crestor] AdvReac Severe Myalgias Verified 03/11/23 15:38 atorvastatin AdvReac Intermediate Can't Sleep Verified 03/11/23 15:38 Family History Mother , age 58 [place] Myocardial infarction CAD (coronary artery disease) Father , of blood disorder Bleeding disorder Other Family history of coronary artery disease Surgical History History of coronary artery stent placement (04/22/16) History of left heart catheterization (03/2016) History of radiofrequency ablation procedure for cardiac arrhythmia (09/2016) Social History household members: none Smoking Status: Never smoker alcohol intake: never substance use type: does not use caffeine: Yes (about 2 times per week) Type: coffee ROS ROS Narrative GENERAL: denies fever, chills, night sweats, weight loss, anorexia HEENT: denies headache, sinus congestion, or drainage, dysphagia RESPIRATORY: denies cough, sputum production, shortness of breath, dyspnea on exertion CARDIAC: denies chest pain, palpitations, orthopnea, PND GASTROINTESTINAL: denies abdominal pain, nausea, vomiting, melena, GENITOURINARY: denies dysuria, urgency, frequency, heamaturia EXTREMITY: denies swelling MUSCULOSKELETAL: denies current joint pain or tenderness NEUROLOGIC: denies focal numbness, weakness, tingling HEMATOLOGIC: denies easy bruising and/or hemorrhage INTEGUMENT: denies rashes PSYCHIATRIC: denies suicidal or homicidal ideation Vital Signs Vital Signs Vital Signs: 07/26/23 08:04 07/26/23 08:10 07/26/23 08:10 Temperature 96.7 F L Temperature Source Temporal Pulse Rate 77 64 Respiratory Rate 18 14 Respiratory Effort Normal Respiratory Pattern Normal Blood Pressure 146/87 H 146/87 H Blood Pressure Mean 106 106 Pulse Ox 97 97 Oxygen Delivery Method Room Air Room Air 07/26/23 08:26 07/26/23 10:03 Temperature Temperature Source Pulse Rate 64 Respiratory Rate 14 Respiratory Effort Respiratory Pattern Blood Pressure 134/73 H Blood Pressure Mean 93 Pulse Ox 98 Oxygen Delivery Method Room Air Room Air Weight Weight: 111.8 kg Body Mass Index (BMI) 38.6 Physical Exam Narrative GENERAL: cooperative HEENT: Atraumatic; normocephalic EYES; Anicteric, Normal Conjunctiva NECK; supple, normal thyroid, RESPIRATORY: Diminished to auscultation CARDIOVASCULAR: Regular S1 S2, GI: soft, normoactive bowel sounds, : No Renal angle tenderness; EXTREMITIES: No edema, no clubbing, MUSCULOSKELETAL: no muscle wasting NEURO: Awake; no lateralizing signs. SKIN: No Rash PSYCH; Flat affect Results Lab / Micro Data 07/26/23 08:15 07/26/23 08:15 Labs: Laboratory Results - last 24 hr 07/26/23 08:15: WBC 12.7 H, RBC 4.96, Hgb 15.4, Hct 46.4, MCV 93.5, MCH 31.0, MCHC 33.2, RDW Std Deviation 44.0 H, RDW Coeff of Radha 13.0, Plt Count 171, MPV 10.0, Immature Gran % (Auto) 0.400, Neut % (Auto) 76.9 H, Lymph % (Auto) 12.5 L, [place] % (Auto) 8.4, Eos % (Auto) 1.4, Baso % (Auto) 0.4, Absolute Neuts (auto) 9.8 H, Absolute Lymphs (auto) 1.59, Nucleated RBC % 0, D-Dimer Quant (PE/DVT) 5.36 H*, Sodium 139, Potassium 4.1, Chloride 111 H, Carbon Dioxide 22.0, Anion Gap 6, BUN 23 H, Creatinine 1.04, Estim Creat Clear Calc 51.20, Est GFR (MDRD) Af Amer 88, Est GFR (MDRD) Non-Af 73, BUN/Creatinine Ratio 22.1 H, Glucose 110 H, Calcium 9.4, Troponin I High Sens 42 07/26/23 10:50: Troponin I High Sens 119 H Rhythm Strip Rhythm Strip: Sinus Rhythm Rate: 63 Ectopy: None Radiology Impression Chest CTA 07/26/23 09:43 IMPRESSION: Bilateral pulmonary emboli. Stable nodular opacity within the right middle lobe which may be secondary to atelectasis and/or scarring. Atherosclerosis. N.B. : The above Results were Read Back by Lilian Chaidez MD to Skyler Arredondo MD, and understanding confirmed on 07/26/2023 11:04:21 (ET). Electronically Signed: Lilian Chaidez MD at 11:05 EDT , ADDENDUM: 07/26/23 1112 IMPRESSION: Bilateral pulmonary emboli. Stable nodular opacity within the right middle lobe which may be secondary to atelectasis and/or scarring. Atherosclerosis. N.B. : The above Results were Read Back by Lilian Chaidez MD to Skyler Arredondo MD, and understanding confirmed on 07/26/2023 11:04:21 (ET). Electronically Signed: Lilian Chaidez MD at 11:05 EDT , Assessment & Plan Assessment/Plan (1) Bilateral pulmonary embolism: PLAN: Plan Patient is an 83-year-old gentleman presenting with syncopal episode found to have bilateral pulmonary embolism 1. Acute pulmonary embolism ? In a patient with previous DVT. Admitted to a monitored bed started on systemic anticoagulation. As part of his management ordered serial cardiac enzymes and 2D echo. With this being patient's second VTE patient will need to be on lifelong systemic anticoagulation 2. Elevated troponin ? Suspected to be secondary to demand ischemia from patient pulmonary embolism subsequent serial cardiac ordered 3. CAD -status post PTCA of proximal LAD with VINNIE patient is on guideline directed medical therapy 4. History of supraventricular tachycardia with paroxysmal A-fib and PSVT ? Currently stable 5. History of prostate CA - currently remission 6. Hypertension - Blood pressure controlled, home medications continued with dose adjustment as needed 7.chronic congestive heart failure ? With preserved ejection fraction currently not in exacerbation echo ordered as part of management of patient's acute pulmonary embolism 8. Class II obesity with BMI of 30.6 ? Complicating care, weight loss advised Time spent in the patient's overall evaluation,decision-making process, review of diagnostic data, adjustment of management, discussion with other providers, nursing nursing and ancillary staff involved in patient's care documentation, 75 Minutes Advance planning; did discuss with the patient and family regarding advanced directives as well as CODE STATUS. Did explain the various scenarios involved ( FULL CODE, DNR CCA, DNR CCA with no intubation, and DNR CC and what each meant) patient elected to remain full code with CPR and intubation if needed. Order was placed. Time spent on discussion 18 minutes. Charges/Coding Visit Charges Inpatient E&M: 05482 Init Hosp L3 Procedures Hospitalists Procedures: 29968 Advncd Care Plan 30 Min
[2023-07-26] MEDS: Enoxaparin 120 MG/0.8 ML Syringe 111 MG SC (12:49)
--- NOTE | 2023-07-26 13:04 | NURSING ---
PCU KITTOE SYNCOPE, ELEVATED TROP, BILATERAL PE
[2023-07-26 13:39] LABS: BNP,B-Type NATRIURETIC PEPTIDE 26.2 pg/mL (0-100)
--- NOTE | 2023-07-26 15:36 | ECHOCS_ITS ---
Reason For Study: EMBOLI Procedure This was a 2D Doppler, Color Flow transthoracic echocardiogram. Technically difficult study. Patient scanned sittin due to breathing difficulty. Contrast injection was performed. Exam performed portable in patient room. Left Ventricle Normal LV size. The left ventricular ejection fraction is 60 %. Stage 1 diastolic dysfunction. Right Ventricle Normal right ventricle. Atria Normal left atrium. The right atrium is not well visualized. Mitral Valve The mitral valve is structurally normal. No prolapse or stenosis seen. Tricuspid Valve The tricuspid valve is not well visualized. Aortic Valve The aortic valve is not well visualized. Pulmonic Valve The pulmonic valve is not well visualized. Great Vessels The aortic root is not well visualized. Pericardium/Pleural No pericardial effusion. Medication Diluted definity 3.5ml given slow IV push to enhance endocardial definition. MMode/2D Measurements & Calculations LAV(MOD-sp4): 74.2 ml LA A4 area: 23.5 cm2 RA A4 area: 10.8 cm2 TAPSE: 1.7 cm Time Measurements MV dec time: 0.26 sec Doppler Measurements & Calculations MV E max ousmane: 44.0 cm/sec Lat Peak E' Ousmane: 7.2 cm/sec Med Peak E' Ousmane: 6.3 cm/sec MV A max ousmane: 82.0 cm/sec E/E' lat: 6.1 E/E' med: 6.9 MV E/A: 0.54 MV V2 max: 96.2 cm/sec MV dec slope: 174.0 cm/sec2 Ao V2 max: 130.9 cm/sec MV max P.7 mmHg Ao max P.9 mmHg MV V2 mean: 37.9 cm/sec Ao V2 mean: 86.5 cm/sec MV mean P.87 mmHg Ao mean P.5 mmHg MV V2 VTI: 23.9 cm Ao V2 VTI: 23.2 cm AV (velocity ratio): 0.79 LV V1 max: 92.6 cm/sec LV V1 max P.4 mmHg LV V1 mean P.0 mmHg LV V1 mean: 67.6 cm/sec LV V1 VTI: 18.4 cm ECHO/Echo Complete W/ Contrast Interpretation Summary Technically difficult study with suboptimal images. The left ventricular ejection fraction is 60 %. Stage 1 diastolic dysfunction. Ordering Physician: Eduardo Elaine Referring Physician: Maureen Martinez M.D. Performed By: Nelia Srivastava RCS
[2023-07-26 16:00] LABS: D-Dimer Quantitative (DVT/PE) 10.47 FEU/ug/m (0.27-0.49)
[2023-07-26 17:21] LABS: Troponin-I HS 92 pg/mL (3.0-78.0)
[2023-07-26] MEDS: Enoxaparin 120 MG/0.8 ML Syringe SC (21:00)
[2023-07-27 03:00] VITALS: BP 109/51; PULSE 53; RESP 18; TEMP 36.7; O2SAT 94
[2023-07-27 07:07] LABS: Absolute Lymphocyte Count 2.43 X10^3/uL (0.83-4.51); Absolute Neutrophil Count 6.2 X10^3/uL (2.0-7.7); Basophil# 0.06 X10^3/uL; Basophil% 0.6 % (0-1); Eosinophil# 0.35 X10^3/uL; Eosinophils% 3.5 % (0-5); Hematocrit 41.4 % (40-54); Hemoglobin 13.9 g/dL (13.0-16.5); Lymphocyte # 2.43 X10^3/ul (0.83-4.51); Lymphocyte % 24.3 % (19-41); Mean Corp Hgb Conc 33.6 g/dL (32-36); Mean Corpuscular Hgb 30.5 pg (27.0-32.0); Mean Corpuscular Volume 90.8 fL (80-94); Mean Platelet Vol. 9.4 fl (6.2-12.0); Monocyte# 0.87 X10^3/uL; Monocyte% 8.7 % (0-10); NRBC Flagged by Analyzer 0 % (0-5); Neutrophil # 6.24 X10^3/uL (2.7-7.7); Neutrophil % 62.5 % (47-70); Platelet Count 171 K/mm3 (150-450); RBC Distribution Width CV 12.9 % (11.6-14.6); RBC Distribution Width SD 42.5 fl (35.1-43.9); Red Blood Count 4.56 M/mm3 (4.6-6.2)
[2023-07-27 07:55] LABS: Anion Gap 8 (5-15); BUN 18 mg/dL (7-18); BUN/Creat Ratio 20.8 RATIO (10-20); Calcium,Total 9.1 mg/dL (8.5-10.1); Chloride 107 mmol/L (98-107); Creatinine, Serum 0.86 mg/dL (0.70-1.30); EST Glomerular Filtration Rate 90 mL/min (>60); Est Glom Filt Rate - Afr Amer 109 mL/min (>60); Estimated Creatinine Clearance 61.92 ml/min; Glucose 98 mg/dL (74-106); Magnesium 2.2 mg/dL (1.6-2.6); Phosphorus 3.6 mg/dL (2.5-4.9); Potassium 3.9 mmol/L (3.5-5.1); Sodium Level 140 mmol/L (136-145)
--- NOTE | 2023-07-27 08:23 | PCM.PN.HOSP ---
Reason for Visit Reason for Visit: Diagnoses Other pulmonary embolism without acute cor pulmonale (07/26/23) Subjective Subjective Patient is an 83-year-old gentleman admitted with syncopal episode diagnosed with bilateral pulmonary embolism. Admitted to monitored bed. Patient was started on Lovenox on admission switch to apixaban starting this a.m. Objective Data Objective Data Vital Signs: Vital Signs Temp Pulse Resp BP Pulse Ox O2 Del Method 98.0 F 53 L 18 109/51 L 94 Room Air 07/27/23 03:00 07/27/23 03:00 07/27/23 03:00 07/27/23 03:00 07/27/23 03:00 07/27/23 08:13 Oxygen Delivery Method Room Air Weight: 107.9 kg Body Mass Index (BMI) 37.2 Intake & Output: Intake and Output for Last 24 Hours 07/25/23 07/26/23 07/27/23 23:59 23:59 23:59 Intake Total 740 / 740 Balance 740 / 740 Lab / Micro Data 07/27/23 06:35 07/27/23 06:35 Labs: Laboratory Results - last 24 hr 07/26/23 08:15: WBC 12.7 H, RBC 4.96, Hgb 15.4, Hct 46.4, MCV 93.5, MCH 31.0, MCHC 33.2, RDW Std Deviation 44.0 H, RDW Coeff of Radha 13.0, Plt Count 171, MPV 10.0, Immature Gran % (Auto) 0.400, Neut % (Auto) 76.9 H, Lymph % (Auto) 12.5 L, Burt % (Auto) 8.4, Eos % (Auto) 1.4, Baso % (Auto) 0.4, Absolute Neuts (auto) 9.8 H, Absolute Lymphs (auto) 1.59, Nucleated RBC % 0, D-Dimer Quant (PE/DVT) Cancelled, Sodium 139, Potassium 4.1, Chloride 111 H, Carbon Dioxide 22.0, Anion Gap 6, BUN 23 H, Creatinine 1.04, Estim Creat Clear Calc 51.20, Est GFR (MDRD) Af Amer 88, Est GFR (MDRD) Non-Af 73, BUN/Creatinine Ratio 22.1 H, Glucose 110 H, Calcium 9.4, Troponin I High Sens 42, B-Natriuretic Peptide 26.2 07/26/23 10:50: Troponin I High Sens 119 H 07/26/23 15:15: D-Dimer Quant (PE/DVT) 10.47 H* 07/26/23 16:31: Troponin I High Sens 92 H 07/27/23 06:35: WBC 10.0, RBC 4.56 L, Hgb 13.9, Hct 41.4, MCV 90.8, MCH 30.5, MCHC 33.6, RDW Std Deviation 42.5, RDW Coeff of Radha 12.9, Plt Count 171, MPV 9.4, Immature Gran % (Auto) 0.400, Neut % (Auto) 62.5, Lymph % (Auto) 24.3, Burt % (Auto) 8.7, Eos % (Auto) 3.5, Baso % (Auto) 0.6, Absolute Neuts (auto) 6.2, Absolute Lymphs (auto) 2.43, Nucleated RBC % 0, Sodium 140, Potassium 3.9, Chloride 107, Carbon Dioxide 25.0, Anion Gap 8, BUN 18, Creatinine 0.86, Estim Creat Clear Calc 61.92, Est GFR (MDRD) Af Amer 109, Est GFR (MDRD) Non-Af 90, BUN/Creatinine Ratio 20.8 H, Glucose 98, Calcium 9.1, Phosphorus 3.6, Magnesium 2.2 Radiography Diagnostic Testing: Radiology Impression Chest CTA 07/26/23 09:43 IMPRESSION: Bilateral pulmonary emboli. Stable nodular opacity within the right middle lobe which may be secondary to atelectasis and/or scarring. Atherosclerosis. N.B. : The above Results were Read Back by Lilian Chaidez MD to Skyler Arredondo MD, and understanding confirmed on 07/26/2023 11:04:21 (ET). Electronically Signed: Lilian Chaidez MD at 11:05 EDT , ADDENDUM: 07/26/23 1112 IMPRESSION: Bilateral pulmonary emboli. Stable nodular opacity within the right middle lobe which may be secondary to atelectasis and/or scarring. Atherosclerosis. N.B. : The above Results were Read Back by Lilian Chaidez MD to Skyler Arredondo MD, and understanding confirmed on 07/26/2023 11:04:21 (ET). Electronically Signed: Lilian Chaidez MD at 11:05 EDT , Rhythm Strip Rhythm Strip: Sinus Rhythm Rate: 63 Ectopy: None Physical Exam Narrative GENERAL: cooperative HEENT: Atraumatic; normocephalic EYES; Anicteric, Normal Conjunctiva NECK; supple, normal thyroid, RESPIRATORY: Diminished to auscultation CARDIOVASCULAR: Regular S1 S2, GI: soft, normoactive bowel sounds, : No Renal angle tenderness; EXTREMITIES: No edema, no clubbing, MUSCULOSKELETAL: no muscle wasting NEURO: Awake; no lateralizing signs. SKIN: No Rash PSYCH; Flat affect Assessment & Plan Assessment/Plan (1) Bilateral pulmonary embolism: PLAN: Plan Patient is an 83-year-old gentleman presenting with syncopal episode found to have bilateral pulmonary embolism 1. Acute pulmonary embolism ? In a patient with previous DVT. Admitted to a monitored bed started on systemic anticoagulation. As part of his management ordered serial cardiac enzymes and 2D echo. 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 07/27/2023 patient switched to apixaban. 2D echo ordered result pending. 2. Elevated troponin ? Suspected to be secondary to demand ischemia from patient pulmonary embolism subsequent serial cardiac ordered 3. CAD -status post PTCA of proximal LAD with VINNIE patient is on guideline directed medical therapy 4. History of supraventricular tachycardia with paroxysmal A-fib and PSVT ? Currently stable 5. History of prostate CA - currently remission 6. Hypertension - Blood pressure controlled, home medications continued with dose adjustment as needed 7.chronic congestive heart failure ? With preserved ejection fraction currently not in exacerbation echo ordered as part of management of patient's acute pulmonary embolism 8. Class II obesity with BMI of 30.6 ? Complicating care, weight loss advised Time spent in the patient's overall evaluation,decision-making process, review of diagnostic data, adjustment of management, discussion with other providers, nursing nursing and ancillary staff involved in patient's care documentation, 50 Minutes Adv Charges/Coding Visit Charges Inpatient E&M: 91410 Subs Hosp L3
[2023-07-27 09:00] VITALS: BP 120/61; PULSE 64; RESP 16; TEMP 36.6; O2SAT 97
[2023-07-27 09:52] VITALS: PULSE 64
[2023-07-27] MEDS: APIXABAN 5 MG TABLET 10 MG PO ×2 (09:52→21:51)
[2023-07-27] MEDS: Aspirin 81 MG TAB.CHEW PO (09:52)
[2023-07-27] MEDS: Metoprolol(XL)Succ 25 MG Tablet 12.5 MG PO (09:52)
--- NOTE | 2023-07-27 10:40 | CASEMGMT ---
ODETTE DOMINGUEZ DC Planning Assessment: Face to Face with patient for initial transition planning/care coordination assessment.?RN ALBERTO introduced self and role at [facility], pt alert, answering questions appropriately, voices understanding and is agreeable to participating in assessment.? Care providers, pharmacy,?and demographics verified. ? Admitting dx: bilat PE PCP: Juan Specialists: [facility] Preferred Pharmacy: [facility] Insurance: [employer] Prescription Benefit:?yes LNOK: Deandra Living Arrangements: Pt states he lives with his in a single story home with 2 steps to enter. Pt denies any difficulty with these steps and states he is independent with all ADLs including self care and household tasks. 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 DME: grab bars and hand held shower. SNF/HHC: denies any previous providers Plan: Return home with the support of his . Discussed Eliquis need at discharge and provided pt with a 30day free Eliquis discount card. Pt denies any additional needs at this time. Noted pt to be on RA. Sandie Salazar RN CM
[2023-07-27 15:00] VITALS: BP 126/74; PULSE 62; RESP 16; TEMP 36.6; O2SAT 97
[2023-07-27 21:56] VITALS: BP 116/57; PULSE 60; RESP 18; TEMP 36.7; O2SAT 95
[2023-07-28 03:50] VITALS: BP 110/67; PULSE 67; RESP 18; TEMP 36.6; O2SAT 94
[2023-07-28 06:54] LABS: Absolute Lymphocyte Count 2.22 X10^3/uL (0.83-4.51); Absolute Neutrophil Count 5.8 X10^3/uL (2.0-7.7); Basophil# 0.04 X10^3/uL; Basophil% 0.4 % (0-1); Eosinophil# 0.45 X10^3/uL; Eosinophils% 4.7 % (0-5); Hematocrit 39.8 % (40-54); Hemoglobin 13.4 g/dL (13.0-16.5); Lymphocyte # 2.22 X10^3/ul (0.83-4.51); Lymphocyte % 23.3 % (19-41); Mean Corp Hgb Conc 33.7 g/dL (32-36); Mean Corpuscular Hgb 30.5 pg (27.0-32.0); Mean Corpuscular Volume 90.5 fL (80-94); Mean Platelet Vol. 9.4 fl (6.2-12.0); Monocyte# 0.98 X10^3/uL; Monocyte% 10.3 % (0-10); NRBC Flagged by Analyzer 0 % (0-5); Neutrophil % 60.9 % (47-70); Platelet Count 160 K/mm3 (150-450); RBC Distribution Width CV 12.8 % (11.6-14.6); RBC Distribution Width SD 42.2 fl (35.1-43.9); White Blood Count 9.5 K/mm3 (4.4-11.0)
[2023-07-28 07:17] LABS: Anion Gap 4 (5-15); BUN 19 mg/dL (7-18); BUN/Creat Ratio 23.8 RATIO (10-20); Calcium,Total 9.1 mg/dL (8.5-10.1); Chloride 109 mmol/L (98-107); EST Glomerular Filtration Rate 98 mL/min (>60); Est Glom Filt Rate - Afr Amer 119 mL/min (>60); Estimated Creatinine Clearance 66.56 ml/min; Glucose 92 mg/dL (74-106); Potassium 3.9 mmol/L (3.5-5.1); Sodium Level 138 mmol/L (136-145)
--- NOTE | 2023-07-28 07:41 | DS.PCM_ITS ---
Providers Date of Admission: 07/26/23 Date of Discharge: 08/07/23 Primary Care Physician: Dr. Maureen Martinez, DO Reason For Visit: SYNCOPE,PE Diagnosis Discharge Diagnosis (1) Bilateral pulmonary embolism: Status: Acute Code(s): I26.99 - Other pulmonary embolism without acute cor pulmonale Plan Patient is an 83-year-old gentleman presenting with syncopal episode found to have bilateral pulmonary embolism 1. Acute pulmonary embolism ? In a patient with previous DVT. Admitted to a monitored bed started on systemic anticoagulation. As part of his management ordered serial cardiac enzymes and 2D echo. 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 07/27/2023 patient switched to apixaban. 2D echo ordered result pending. ?07/28/2022; 2D echo results are as below Technically difficult study with suboptimal images. The left ventricular ejection fraction is 60 %. Stage 1 diastolic dysfunction ? Patient was discharged on Eliquis 1 month instructed to follow-up with primary care physician for refills. Patient was informed that he needs to be on systemic anticoagulation indefinitely unless otherwise contraindicated 2. Elevated troponin ? Suspected to be secondary to demand ischemia from patient pulmonary embolism subsequent serial cardiac ordered 3. CAD -status post PTCA of proximal LAD with VINNIE patient is on guideline directed m edical therapy 4. History of supraventricular tachycardia with paroxysmal A-fib and PSVT ? Currently stable 5. History of prostate CA - currently remission 6. Hypertension - Blood pressure controlled, home medications continued with dose adjustment as needed 7.chronic congestive heart failure ? With preserved ejection fraction currently not in exacerbation echo ordered as part of management of patient's acute pulmonary embolism 8. Class II obesity with BMI of 30.6 ? Complicating care, weight loss advised Time spent in the patient's overall evaluation,decision-making process, review o f diagnostic data, adjustment of management, discussion with other providers, nursing nursing and ancillary staff involved in patient's care documentation, 35 minutes Medications at Discharge Home Medications metoprolol succinate 25 mg tablet,extended release 24 hr 12.5 mg (1/2 x 25 mg) PO DAILY #15 tabs 12/20/22 nitroglycerin 0.4 mg sublingual tablet 0.4 mg sublingual Q5-15M PRN chest pain #25 tabs 12/20/22 apixaban 5 mg tablet (Eliquis) 10 mg (2 x 5 mg) PO BID #74 tabs 07/28/23 aspirin 81 mg chewable tablet 81 mg PO DAILYCM #60 tabs 07/28/23 Hospital Course Summary of Care Provided Minutes Spent on Discharge: 35 Physical Exam Narrative GENERAL: cooperative HEENT: Atraumatic; normocephalic EYES; Anicteric, Normal Conjunctiva NECK; supple, normal thyroid, RESPIRATORY: Diminished to auscultation CARDIOVASCULAR: Regular S1 S2, GI: soft, normoactive bowel sounds, : No Renal angle tenderness; EXTREMITIES: No edema, no clubbing, MUSCULOSKELETAL: no muscle wasting NEURO: Awake; no lateralizing signs. SKIN: No Rash PSYCH; Flat affect Weight / BMI Weight Weight: 107.9 kg Body Mass Index (BMI) 37.2 ABG / Lab / Microbiology Data 07/28/23 06:11 07/28/23 06:11 Laboratory: Laboratory Results - last 24 hr 07/27/23 06:35: Sodium 140, Potassium 3.9, Chloride 107, Carbon Dioxide 25.0, Anion Gap 8, BUN 18, Creatinine 0.86, Estim Creat Clear Calc 61.92, Est GFR (MDRD) Af Amer 109, Est GFR (MDRD) Non-Af 90, BUN/Creatinine Ratio 20.8 H, Glucose 98, Calcium 9.1, Phosphorus 3.6, Magnesium 2.2 07/28/23 06:11: WBC 9.5, RBC 4.40 L, Hgb 13.4, Hct 39.8 L, MCV 90.5, MCH 30.5, MCHC 33.7, RDW Std Deviation 42.2, RDW Coeff of Radha 12.8, Plt Count 160, MPV 9.4, Immature Gran % (Auto) 0.400, Neut % (Auto) 60.9, Lymph % (Auto) 23.3, [place] % (Auto) 10.3 H, Eos % (Auto) 4.7, Baso % (Auto) 0.4, Absolute Neuts (auto) 5.8, Absolute Lymphs (auto) 2.22, Nucleated RBC % 0, Sodium 138, Potassium 3.9, Chloride 109 H, Carbon Dioxide 25.0, Anion Gap 4 L, BUN 19 H, Creatinine 0.80, Estim Creat Clear Calc 66.56, Est GFR (MDRD) Af Amer 119, Est GFR (MDRD) Non-Af 98, BUN/Creatinine Ratio 23.8 H, Glucose 92, Calcium 9.1 Radiography Diagnostic Testing: Radiology Impression Echocardiogram 07/26/23 15:36 Interpretation Summary Technically difficult study with suboptimal images. The left ventricular ejection fraction is 60 %. Stage 1 diastolic dysfunction. Ordering Physician: Eduardo Elaine Referring Physician: Maureen Martinez M.D. Performed By: Nelia Srivastava RCS D/C Instructions Discharge Diet: No restrictions Discharge Activity: Return to Normal Activity Call your doctor if you observe: Fever of 101 or Higher, Shortness of breath, Fainting spells and Chest pain Meaningful Use Info Meaningful Use Diagnoses (Choose all that apply): VTE VTE Anticoag overlap given w/in hospital stay or rx'd at wv?: No Pt receive overlap for 5 days?: No Reason overlap not ordered, prescribed, or given for 5 days: Treatment Not Indicated Discharge Plan Admission Admit Date/Time: 07/26/23 12:23 Attending Provider: Eduardo Elaine Primary Care Provider: Maureen Martinez Discharge Orders/Prescriptions Prescriptions: New Eliquis 5 mg Tablet 10 mg PO BID Qty: 74 0RF Rx Instructions: 10 mg p.o. twice daily for 7 days then 5 mg p.o. twice daily aspirin 81 mg Tablet,Chewable 81 mg PO DAILYCM Qty: 60 0RF Continued nitroglycerin 0.4 mg tablet, sublingual 0.4 mg sublingual Q5-15M PRN (Reason: chest pain) Qty: 25 3RF Rx Instructions: do not exceed 3 doses per episode metoprolol succinate 25 mg tablet extended release 24 hr 12.5 mg PO DAILY Qty: 15 6RF Discontinued aspirin 325 mg tablet 325 mg PO DAILY Referrals / Follow Up: Maureen Martinez DO [Primary Care Provider] - Within 1 Week Disposition Disposition (needs filled in before D/C Order can be placed): Home, Self Care Charges/Coding Visit Charges Inpatient E&M: 50004 Disch Hosp >30min
[2023-07-28 09:30] VITALS: BP 139/78; PULSE 93; RESP 16; TEMP 36.7; O2SAT 98
[2023-07-28 09:37] VITALS: PULSE 93
[2023-07-28] MEDS: Aspirin 81 MG TAB.CHEW PO (09:37)
[2023-07-28] MEDS: Metoprolol(XL)Succ 25 MG Tablet 12.5 MG PO (09:37)
[2023-07-28] MEDS: APIXABAN 5 MG TABLET 10 MG PO ×2 (09:37→14:57)
[2023-07-28 14:48] VITALS: BP 124/71; PULSE 60; RESP 16; TEMP 36.3; O2SAT 96
--- NOTE | 2023-08-06 15:37 | NURSING ---
Late entry: Unable to change the answer to VTE question, which it should be yes.
== END 2023-07-28 15:15 | disposition home or self-care (01) | DRG 176 ==
LOC: ED 12:53 → PCU 14:36
PROVIDERS: Admitting Provider Internal Medicine; Emergency Provider Emergency Medicine; PCP Internal Medicine; Visit Provider Internal Medicine
DX: I26.99 Other pulmonary embolism without acute cor pulmonale (principal); I11.0 Hypertensive heart disease with heart failure; E66.9 Obesity, unspecified; I50.9 Heart failure, unspecified; I25.10 Atherosclerotic heart disease of native coronary artery without angina pectoris; E78.5 Hyperlipidemia, unspecified; I25.2 Old myocardial infarction; Z86.16 Personal history of COVID-19; Z79.82 Long term (current) use of aspirin; Z66 Do not resuscitate; Z98.61 Coronary angioplasty status; Z86.718 Personal history of other venous thrombosis and embolism; Z85.46 Personal history of malignant neoplasm of prostate; Z68.30 Body mass index [BMI] 30.0-30.9, adult
CPT/HCPCS: 36415; 71275; 80048; 83735; 83880; 84100; 84484; 85025; 85379; 93005; 93306; 99285; J7040; Q9957; Q9967; C8929

== ENCOUNTER 2023-07-28 21:13 | Emergency (ER) | payer MEDICARE, SELFPAY ==
[2023-07-28 21:14] VITALS: BP 147/73; PULSE 80; RESP 16; TEMP 36.6; O2SAT 96; BMI 38.1
--- NOTE | 2023-07-28 22:40 | EX.ED.DYSGE1 ---
HPI History of Present Illness Chief Complaint: Edema Informant: patient, spouse/S.O. and family Narrative Narrative: Patient is an 83-year-old male with past medical history of CAD paroxysmal supraventricular tachycardia right bundle branch block hypertension hyperlipidemia and prostate cancer. He was admitted to the hospital on July 26 and found to have bilateral pulmonary emboli. He was placed on Eliquis and kept in the hospital for the next 2 days and discharged home this morning. states that she noticed when he got home they did left-sided leg swelling which she does not believe he had when he was admitted or while in the hospital and secondary to this he was brought back in for evaluation. Patient denies any history of congestive heart failure and he states he has been no trauma or pain to the area [facility] Medical History (Updated 07/29/23 @ 01:[address] 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 Multiple premature ventricular complexes Myocardial infarct Non-smoker Old myocardial infarction Palpitations Paroxysmal supraventricular tachycardia Premature ventricular contractions Productive cough Prostate cancer Rheumatoid arthritis Right bundle branch block (RBBB) Shortness of breath Wheezing Home Medications metoprolol succinate 25 mg tablet,extended release 24 hr 12.5 mg (1/2 x 25 mg) PO DAILY #15 tabs 12/20/22 [Rx Last Taken 07/25/23] nitroglycerin 0.4 mg sublingual tablet 0.4 mg sublingual Q5-15M PRN chest pain #25 tabs 12/20/22 [Rx Last Taken 07/26/23] apixaban 5 mg tablet (Eliquis) 10 mg (2 x 5 mg) PO BID #74 tabs 07/28/23 [Rx Last Taken Unknown] aspirin 81 mg chewable tablet 81 mg PO DAILYCM #60 tabs 07/28/23 [Rx Last Taken Unknown] Allergy/AdvReac Type Severity Reaction Status Date / Time rosuvastatin [From Crestor] AdvReac Severe Myalgias Verified 07/28/23 21:14 atorvastatin AdvReac Intermediate Can't Sleep Verified 07/28/23 21:14 Family History Mother , age 58 [place] Myocardial infarction CAD (coronary artery disease) Father , of blood disorder Bleeding disorder Other Family history of coronary artery disease Surgical History History of appendectomy History of coronary artery stent placement (03/23/16) History of left heart catheterization (03/2016) History of radiofrequency ablation procedure for cardiac arrhythmia (09/2016) Social History (Updated 07/28/23 @ 21:32 by Vickie Santana) household members: spouse and none housing: house Smoking Status: Never smoker alcohol intake: never substance use type: does not use caffeine: Yes (about 2 times per week) Type: coffee ROS ROS ED Constitutional Constitutional ED: Denies chills or fever(s) ENT ENT ED: Denies sore throat Cardiovascular Cardiovascular: Denies chest pain, palpitations or racing heartbeat Respiratory/Chest Respiratory/Chest: Denies cough or dyspnea Gastrointestinal Gastrointestinal: Denies abdominal pain, diarrhea, nausea or vomiting Genitourinary Genitourinary ED: Denies dysuria Musculoskeletal Musculoskeletal: Reports other Details: Positive left leg swelling ; Denies back pain or myalgias Integumentary Denies rash Neurologic Neurologic: Denies headache(s) or paresthesias Hematologic/Lymphatic Hematologic/Lymphatic: Reports easy bleeding and easy bruising EXAM Physical Exam Const Vital Signs: 07/28/23 21:14 07/28/23 21:32 07/28/23 22:52 Temperature 97.8 F Temperature Source Temporal Pulse Rate 80 66 Respiratory Rate 16 16 Respiratory Effort Short of Breath Respiratory Pattern Tachypnea Blood Pressure 147/73 H 136/80 H Blood Pressure Mean 97 Pulse Ox 96 97 Positive well nourished and well developed General Appearance ED: well developed HEENT HEENT Narrative: No tongue or lip swelling no oral lesions no airway edema or compromise Eyes PERRL and EOMs intact bilaterally Neck supple and no JVD Resp normal respiratory effort and clear to auscultation bilaterally Resp Narrative: No nasal tearing retractions tachypnea or accessory muscle use Cardio regular rate and regular rhythm Rate: other Other Details: Radial and carotid pulses are equal and symmetric GI normal to inspection, nondistended, normoactive bowel sounds, non-tender, non-distended and no masses GI Narrative: No fluid wave noted Auscultation: normoactive bowel sounds Palpation: soft Extremity Extremity Narrative: Left lower extremity is neurovascularly intact. Capillary refill is less than 3 seconds. There is asymmetric swelling extending from the dorsum of the foot up to the mid thigh. However compartments are soft and compressible going against compartment syndrome. No overlying erythema or warmth noted. Negative Homans' sign. Neuro oriented x3, CN's II-XII intact bilaterally and no sensory deficits noted Sensorium / Orientation: alert Motor Exam: strength 5/5 throughout Psych mental status grossly normal Skin no rashes or lesions noted General Skin Exam: Negative for jaundice MDM MDM MDM Narrative Medical decision making narrative: Patient presented to the ER with stable vitals. He had been admitted to the hospital for the past 2 days secondary to bilateral pulmonary emboli and is currently on Eliquis. He had blood work obtained at this morning which revealed no acute findings. Asymmetric leg swelling can be associated with ascites from liver disease versus congestive heart failure versus DVT or arterial occlusion. The patient does not have any change in pulses color or temperature going against a arterial occlusion. Swelling is unilateral nature going against ascitic fluid or congestive heart failure. The fact that he has known pulm emboli and asymmetric leg swelling does correlate with lower extremity DVT. However he is currently on Eliquis which is a treatment for this. I would perform an ultrasound to confirm but they are not available at this time of day on the weekend. Therefore as patient is not showing signs of respiratory distress arterial occlusion or infection I do not feel there is need for further work-up and he will be given an outpatient order to have a venous duplex obtained in the morning to confirm DVT however he is currently on proper medication for this and does not need further evaluation in the hospital History & Record Review Discussion w/independent historian: Patient and Significant other Discharge Plan Triage Chief Complaint: Edema ED Provider: Nolan Gleason Dx/Rx/DC Orders Clinical Impression: DVT (deep venous thrombosis), Essential (primary) hypertension, Right bundle branch block (RBBB), Bilateral pulmonary embolism Instructions: DVT Complications, DVT Dc Prescriptions: No Action nitroglycerin 0.4 mg tablet, sublingual 0.4 mg sublingual Q5-15M PRN (Reason: chest pain) Qty: 25 3RF Rx Instructions: do not exceed 3 doses per episode metoprolol succinate 25 mg tablet extended release 24 hr 12.5 mg PO DAILY Qty: 15 6RF Eliquis 5 mg Tablet 10 mg PO BID Qty: 74 0RF Rx Instructions: 10 mg p.o. twice daily for 7 days then 5 mg p.o. twice daily aspirin 81 mg Tablet,Chewable 81 mg PO DAILYCM Qty: 60 0RF Other Ambulatory Orders: Venous Duplex US - Jonny Extrem (Stat) Facility: [facility] - Location: [facility] Ordered By: Dr. Nolan Gleason Primary Care Provider: Maureen Martinez Referrals: Maureen Martinez DO [Primary Care Provider] - Activity Restrictions/Additional Instructions: Your physical and indicates that you have developed a blood clot in your left leg. However you are on Eliquis which is a proper medication to treat this. If you develop a fever over 100.4 worsening chest pain or shortness of breath or have any further concerns please return to the ER for repeat evaluation. Otherwise continue your Eliquis as previously directed. Please return to the hospital for your outpatient venous duplex to confirm the blood clot that is suspected on today's exam. Disposition Disposition: Home, Self Care Discharge Date/Time: 07/28/23 23:15
[2023-07-28 22:52] VITALS: BP 136/80; PULSE 66; RESP 16; O2SAT 97
== END 2023-07-28 23:15 | disposition home or self-care (01) ==
PROVIDERS: Emergency Provider Emergency Medicine; PCP Internal Medicine; Visit Provider Emergency Medicine
DX: I82.402 Acute embolism and thrombosis of unspecified deep veins of left lower extremity (principal); I26.99 Other pulmonary embolism without acute cor pulmonale; I48.91 Unspecified atrial fibrillation; I10 Essential (primary) hypertension; I45.10 Unspecified right bundle-branch block; I25.10 Atherosclerotic heart disease of native coronary artery without angina pectoris; I25.2 Old myocardial infarction; Z79.82 Long term (current) use of aspirin; Z79.01 Long term (current) use of anticoagulants; Z86.16 Personal history of COVID-19; Z86.718 Personal history of other venous thrombosis and embolism
CPT/HCPCS: 99282

== ENCOUNTER → 2023-07-29 | Outpatient (CLI) | payer MEDICARE, SELFPAY ==
--- NOTE | 2023-07-29 10:50 | VDLE_ITS ---
Reason For Study: LLE Swelling RIGHT LEFT GSV is normal. GSV is dilated and NONCOMPRESSIBLE with CFV is compressible, spontaneous, phasic, intraluminal echoes from junction to mid competent and demonstrates normal thigh. augmentation. Acute deep vein thrombosis is noted in the FV is compressible, spontaneous, phasic, EIV. It is dilated with intraluminal echoes. competent and demonstrates normal No flow seen in color or pulsed wave doppler. augmentation. Acute deep vein thrombosis is noted in the POP V is compressible, spontaneous, phasic, CFV. It is dilated and NONCOMPRESSIBLE. competent and demonstrates normal Acute deep vein thrombosis is noted in the augmentation. FV. It is dilated and NONCOMPRESSIBLE. T/P Trunk is compressible. POP V is compressible and spontaneous with PTV is compressible. continuous flow seen in pulsed wave doppler. RT PerV is compressible. T/P Trunk is compressible. A non-vascularized anechoic area measuring PTV is compressible. approximately 3.87 x 0.92 cm is noted in the LT PerV is compressible. Rt Pop Fossa. Procedure This is a venous duplex using B-mode, color flow and spectral Doppler. Exam performed in department. The exam was diagnostic. A preliminary report was called and/or faxed to Mari Canales RN at [facility]. VL/Venous Duplex US - Jonny Extrem Interpretation Summary There is no evidence of right lower extremity deep vein thrombosis. Right great saphenous vein appears patent and compressible segmentally. Right popliteal space nonvascular 3.87 x 0.92 cm structure consistent with a Freeman's cyst clinical correlation would be appropri ate Acute deep venous thrombosis left external iliac, common femoral, and femoral v eins. Superficial thrombophlebitis left great saphenous vein Ordering Physician: Nolan Gleason Referring Physician: Maureen Martinez M.D. Performed By: Pb Evans RVT
== END | disposition home or self-care (01) ==
PROVIDERS: PCP Internal Medicine; Referring Provider Emergency Medicine; Visit Provider Emergency Medicine
DX: M79.89 Other specified soft tissue disorders (principal)
CPT/HCPCS: 93970

== ENCOUNTER → 2024-01-16 | Outpatient (CLI) | payer MEDICARE, SELFPAY ==
[2024-01-16 11:13] LABS: PSA,Total- Diagnostic 7.82 ng/mL (0.0-4.0)
== END | disposition home or self-care (01) ==
LOC: LAB 10:07
PROVIDERS: PCP Internal Medicine; Referring Provider Urology; Visit Provider Urology
DX: C61 Malignant neoplasm of prostate (principal)
CPT/HCPCS: 36415; 84153

== ENCOUNTER 2024-01-18 11:17 | Emergency (ER) | payer MEDICARE, SELFPAY ==
[2024-01-18 11:18] VITALS: BP 187/68; PULSE 60; RESP 18; TEMP 35.7; O2SAT 96; BMI 38.1
--- NOTE | 2024-01-18 11:30 | CT_ITS ---
STUDY: CT ABDOMEN AND PELVIS WITH CONTRAST REASON FOR EXAM: Male, 83 years old. Right lower quadrant pain with guarding RADIATION DOSAGE (If Supplied By Facility): CTDIvol = ( 23.66 ) mGy, DLP = ( 1261.36 ) mGycm TECHNIQUE: Transaxial images were obtained from the dome of the diaphragm to the symphysis pubis without oral contrast. ml of 100mL Isovue-370 contrast was administered. Sagittal and coronal images were reconstructed. Individualized dose optimization techniques were used for this CT. COMPARISON: CT of abdomen and pelvis dated February 23, 2014 FINDINGS: The visualized lung bases are unremarkable. The visualized portions of the heart are within normal limits. Normal liver. Normal gallbladder and extrahepatic biliary system. Normal spleen. Normal pancreas. Normal bilateral adrenal glands. Normal right kidney. Normal left kidney. No hydronephrosis is present. Normal visualized stomach. Normal small intestine. There are multiple colonic diverticula consistent with diverticulosis. There is non-visualization of the appendix. There are no fluid collections or lymphadenopathy or inflammatory stranding of the right lower quadrant. There are no diverticula of the bowel loops in the right lower quadrant or acute inflammation. Normal abdominal aorta. Normal inferior vena cava. Normal retroperitoneum. Normal urinary bladder. Redemonstration of prostate brachytherapy seeds. Normal abdominal wall. Normal osseous structures. CT/Abdomen/Pelvis W IV Cont ONLY IMPRESSION: 1. There are multiple colonic diverticula consistent with diverticulosis. There is non-visualization of the appendix. There are no fluid collections or lymphadenopathy or inflammatory stranding of the right lower quadrant. There are no diverticula of the bowel loops in the right lower quadrant or acute inflammation. Electronically Signed: Facundo Winkler MD at 14:44 EST ,
--- NOTE | 2024-01-18 11:54 | EX.ED.DYSGE1 ---
HPI History of Present Illness Chief Complaint: Abd Pain Detail of Chief Complaint: Right lower quadrant abdominal pain that radiates through to his back and i Informant: patient and spouse/S.O. Onset/Context/Timing Onset: Days (2 evenings ago) Context: Sudden Onset Timing: Continuous and Waxes and wanes Quality: Pain achy Location: Right lower quadrant radiating to the right flank Current Severity: Mild Maximum Severity: Severe Worsened by: There is a positional component. Relieved by: Nothing Associated Symptoms Associated Symptoms: Nausea Narrative Narrative: Patient is an 83-year-old male. He has history of DVT and PE on Eliquis, atherosclerotic heart disease, essential hypertension, hyperlipidemia and prostate cancer. He presents with right lower quadrant abdominal pain that radiates through to his back that started 2 evenings ago. He had difficulty sleeping the past 2 nights. He denies history of renal or ureterolithiasis. He is status post appendectomy. He does have diffuse diverticular disease according to him and his . He denies dysuria, frequency, urgency or hematuria. There is no history of trauma. He denies mass or bulge. He denies scrotal pain or scrotal swelling. Patient denies cardiac or respiratory symptoms. Patient denies fever, chills night sweats. Patient denies weight loss or weight gain. Prior similar symptoms: No Recent Illness/Hospitalization: No PFSH PFSH Medical History Anemia Asthma Atherosclerotic heart disease of [place] coronary artery without angina pectoris Atrial fibrillation Bilateral carotid bruits COPD (chronic obstructive pulmonary disease) Coronary artery disease COVID-19 virus detected (09/30/20) DVT (deep venous thrombosis) (~06/2021) Essential (primary) hypertension Family history of coronary artery disease Fatigue Hyperlipidemia Hypertension Kidney stones assisted use of drug Multiple premature ventricular complexes Myocardial infarct Non-smoker Old myocardial infarction Palpitations Paroxysmal supraventricular tachycardia Premature ventricular contractions Productive cough Prostate cancer Rheumatoid arthritis Right bundle branch block (RBBB) Shortness of breath Wheezing Home Medications metoprolol succinate 25 mg tablet,extended release 24 hr 12.5 mg (1/2 x 25 mg) PO DAILY #15 tabs 12/20/22 [Rx Last Taken 07/25/23] nitroglycerin 0.4 mg sublingual tablet 0.4 mg sublingual Q5-15M PRN chest pain #25 tabs 12/20/22 [Rx Last Taken 07/26/23] aspirin 81 mg chewable tablet 81 mg PO DAILYCM #60 tabs 07/28/23 [Rx Last Taken Unknown] apixaban 5 mg tablet (Eliquis) 5 mg PO BID 09/10/23 [History Last Taken Unknown] furosemide 40 mg tablet (Lasix) 40 mg PO DAILY #30 tabs 09/10/23 [Rx Last Taken Unknown] potassium chloride 20 mEq tablet,extended release 20 meq PO DAILY #30 tabs 09/10/23 [Rx Last Taken Unknown] hydrocodone-acetaminophen 5-325mg 5mg-325mg 1 tab PO Q6H PRN PRN Pain 3 days #10 TABLETS 01/18/24 [Rx Last Taken Unknown] Allergy/AdvReac Type Severity Reaction Status Date / Time rosuvastatin [From Crestor] AdvReac Severe Myalgias Verified 01/18/24 11:17 atorvastatin AdvReac Intermediate Can't Sleep Verified 01/18/24 11:17 Family History Mother , age 58 [place] Myocardial infarction CAD (coronary artery disease) Father , of blood disorder Bleeding disorder Other Family history of coronary artery disease Surgical History History of appendectomy History of coronary artery stent placement (03/23/16) History of left heart catheterization (03/2016) History of radiofrequency ablation procedure for cardiac arrhythmia (09/2016) Social History household members: spouse and none housing: house Smoking Status: Never smoker alcohol intake: never substance use type: does not use caffeine: Yes (about 2 times per week) Type: coffee ROS ROS ED Constitutional Constitutional ED: Denies chills, fever(s), subjective, sweats or weight loss Eyes Eyes: Denies blurry vision, change in vision or diplopia ENT ENT ED: Denies ear pain, rhinorrhea or sore throat Cardiovascular Cardiovascular: Denies chest pain, orthopnea, palpitations, paroxysmal nocturnal dyspnea or racing heartbeat Respiratory/Chest Respiratory/Chest: Denies cough, dyspnea, dyspnea on exertion, orthopnea or paroxysmal nocturnal dyspnea Gastrointestinal Gastrointestinal: Reports abdominal pain and nausea; Denies constipation, diarrhea, melena or vomiting Genitourinary Genitourinary ED: Denies dysuria, hematuria or urinary frequency Musculoskeletal Musculoskeletal: Reports back pain; Denies arthralgias, myalgias or neck pain Integumentary Denies Abrasions or rash Neurologic Neurologic: Denies headache(s), paresthesias or weakness Endocrine Endocrinology: Denies cold intolerance or heat intolerance Hematologic/Lymphatic Hematologic/Lymphatic: Reports systems reviewed and no addt'l complaints, except as documented EXAM Physical Exam Const Vital Signs: 01/18/24 11:18 01/18/24 14:41 Temperature 96.2 F L Temperature Source Temporal Pulse Rate 60 55 L Respiratory Rate 18 16 Blood Pressure 187/68 H 169/74 H Blood Pressure Mean 107 105 Pulse Ox 96 97 Oxygen Delivery Method Room Air Positive well nourished, well developed and obese General Appearance ED: well developed and NAD; Negative for pallor Nutritional Appearance: obese HEENT Reports moist mucous membranes HEENT Narrative: Head is atraumatic and normocephalic. Ears are normal. Nares are patent. Eyes PERRL and EOMs intact bilaterally General Eye ED: Negative for pale conjunctiva or scleral icterus Neck no lymphadenopathy, supple and no JVD Chest Wall inspection of chest normal and palpation of chest normal Resp normal respiratory effort and clear to auscultation bilaterally Cardio regular rate, regular rhythm, S1 normal heart sound, S2 normal heart sound and no murmurs GI normal to inspection, nondistended, normoactive bowel sounds, non-distended and no masses; Negative for hepatosplenomegaly Auscultation: hypoactive bowel sounds Palpation: soft, tender RLQ, guarding RLQ and rebound tenderness present McBurney's point; Negative for splenomegaly or mass Narrative: There is no inguinal hernia or inguinal lymphadenopathy. There is no bruising noted. Back/Spine no CVA tenderness Thoracic Spine / Upper Back: Negative for thoracic spinal tenderness Lumbar Spine / Lower Back: Negative for lumbar spinal tenderness Extremity normal to inspection Neuro oriented x3, CN's II-XII intact bilaterally and no sensory deficits noted Sensorium / Orientation: alert Motor Exam: strength 5/5 throughout Psych mental status grossly normal Skin no rashes or lesions noted, no wounds and skin turgor normal General Skin Exam: Negative for jaundice or pallor MDM MDM MDM Narrative Medical decision making narrative: Differential diagnosis would include ureterolithiasis, urinary tract infection with obstruction, right-sided diverticular disease, mesenteric adenitis, carcinoma. Appropriate lab was obtained which included CBC, electrolyte panel UA. CT of the abdomen and pelvis with IV contrast was ordered. Old records were reviewed. History & Record Review Additional record(s) reviewed:: Prior inpatient record (Admission for pulmonary embolus, bilateral and pneumonia in the remote past.), Prior outpatient record (For communicable disease.), Prior ED visit and Prior labs Lab Data Attestation: I reviewed the patient's lab results. Lab results narrative: CBC is unremarkable. Competence of metabolic panel is unremarkable. UA is negative. Awaiting formal read of CAT scan by radiologist. Labs: Laboratory Results - last 24 hr 01/18/24 01/18/24 12:10 13:20 WBC 10.0 RBC 5.20 Hgb 15.3 Hct 46.9 MCV 90.2 MCH 29.4 MCHC 32.6 RDW Std Deviation 45.1 H RDW Coeff of Radha 13.6 Plt Count 233 MPV 8.9 Immature Gran % (Auto) 0.300 Neut % (Auto) 59.4 Lymph % (Auto) 25.0 [place] % (Auto) 11.4 H Eos % (Auto) 3.2 Baso % (Auto) 0.7 Absolute Neuts (auto) 6.0 Absolute Lymphs (auto) 2.51 Nucleated RBC % 0 Sodium 141 Potassium 4.2 Chloride 111 H Carbon Dioxide 29.0 Anion Gap 1 L BUN 19 H Creatinine 1.04 Estim Creat Clear Calc 67.06 Est GFR (MDRD) Af Amer 88 Est GFR (MDRD) Non-Af 73 BUN/Creatinine Ratio 18.3 Glucose 77 Calcium 9.2 Urine Color Yellow Urine Clarity Clear Urine pH 7.0 Ur Specific [place] 1.010 Urine Protein 15 H Urine Glucose (UA) Normal Urine Ketones Negative Urine Occult Blood 10 H Urine Nitrite Negative Urine Bilirubin Negative Urine Urobilinogen Normal Ur Leukocyte Esterase Negative Urine RBC 0 SEEN Urine WBC 0 SEEN Ur Squamous Epith Cells 0 SEEN Urine Bacteria 0 SEEN Urine Mucus 0 SEEN Radiography Diagnostic Testing: Clinical Impression(s) from Imaging Studies Abdomen/Pelvis CT 01/18/24 11:30 IMPRESSION: 1. There are multiple colonic diverticula consistent with diverticulosis. There is non-visualization of the appendix. There are no fluid collections or lymphadenopathy or inflammatory stranding of the right lower quadrant. There are no diverticula of the bowel loops in the right lower quadrant or acute inflammation. Electronically Signed: Facundo Winkler MD at 14:44 EST , Treatment and Re-Evaluation :: Patient was informed of results at 1507. Patient still has tenderness in the right lower quadrant in the proximity McBurney's point. There is no palpable defect or ventral hernia. Patient was discharged to home with medication for pain Discharge Plan Triage Chief Complaint: Abd Pain ED Provider: Kiran Suh Dx/Rx/DC Orders Clinical Impression: Acute abdominal pain in right lower quadrant, Atherosclerotic heart disease of [place] coronary artery without angina pectoris, Hyperlipidemia, Essential (primary) hypertension, DVT (deep venous thrombosis), Prostate cancer, Bilateral pulmonary embolism, Diverticulosis of colon, Anticoagulant long-term use Instructions: ED Abdominal Pain Unkn Cause Male... Prescriptions: New hydrocodone-acetaminophen [hydrocodone-acetaminophen] 5-325 mg tablet 1 tab PO Q6H PRN PRN (Reason: Pain) 3 Days Qty: 10 0RF No Action nitroglycerin 0.4 mg tablet, sublingual 0.4 mg sublingual Q5-15M PRN (Reason: chest pain) Qty: 25 3RF Rx Instructions: do not exceed 3 doses per episode metoprolol succinate 25 mg tablet extended release 24 hr 12.5 mg PO DAILY Qty: 15 6RF Eliquis 5 mg tablet 5 mg PO BID furosemide [Lasix] 40 mg tablet 40 mg PO DAILY Qty: 30 0RF potassium chloride 20 mEq tablet extended release 20 meq PO DAILY Qty: 30 0RF aspirin 81 mg Tablet,Chewable 81 mg PO DAILYCM Qty: 60 0RF Primary Care Provider: Maureen Martinez Referrals: Maureen Martinez DO [Primary Care Provider] - 3-5 Days if not improving Disposition Disposition: Home, Self Care
[2024-01-18 12:17] LABS: Absolute Lymphocyte Count 2.51 X10^3/uL (0.83-4.51); Basophil# 0.07 X10^3/uL; Basophil% 0.7 % (0-1); Eosinophil# 0.32 X10^3/uL; Eosinophils% 3.2 % (0-5); Hematocrit 46.9 % (40-54); Hemoglobin 15.3 g/dL (13.0-16.5); Lymphocyte # 2.51 X10^3/ul (0.83-4.51); Mean Corp Hgb Conc 32.6 g/dL (32-36); Mean Corpuscular Hgb 29.4 pg (27.0-32.0); Mean Corpuscular Volume 90.2 fL (80-94); Mean Platelet Vol. 8.9 fl (6.2-12.0); Monocyte# 1.14 X10^3/uL; Monocyte% 11.4 % (0-10); NRBC Flagged by Analyzer 0 % (0-5); Neutrophil # 5.95 X10^3/uL (2.7-7.7); Neutrophil % 59.4 % (47-70); Platelet Count 233 K/mm3 (150-450); RBC Distribution Width CV 13.6 % (11.6-14.6); RBC Distribution Width SD 45.1 fl (35.1-43.9)
[2024-01-18] MEDS: Morphine 4 MG/ML Syringe IV ×2 (12:23→14:43)
[2024-01-18] MEDS: Ondansetron 4 MG/2 ML Vial IV (12:23)
[2024-01-18 12:46] LABS: Anion Gap 1 (5-15); BUN 19 mg/dL (7-18); BUN/Creat Ratio 18.3 RATIO (10-20); Calcium,Total 9.2 mg/dL (8.5-10.1); Chloride 111 mmol/L (98-107); Creatinine, Serum 1.04 mg/dL (0.70-1.30); EST Glomerular Filtration Rate 73 mL/min (>60); Est Glom Filt Rate - Afr Amer 88 mL/min (>60); Estimated Creatinine Clearance 67.06 ml/min; Glucose 77 mg/dL (74-106); Potassium 4.2 mmol/L (3.5-5.1); Sodium Level 141 mmol/L (136-145)
[2024-01-18 13:29] LABS: Bacteria 0 SEEN /hpf (None Seen); Mucous, Urine 0 SEEN /hpf (<or=2+); Red Blood Cells-Urine 0 SEEN /hpf (0-5); Squamous Epithelial Cells - UA 0 SEEN /hpf (0-5); White Blood Cells 0 SEEN /hpf (0-5)
[2024-01-18 13:38] LABS: Color, Urine Yellow (Yellow); Glucose, Dipstick Normal (Normal); Ketone-Dipstick Negative (Negative); Leukocyte Esterase-Dipstick Negative /ul (Negative); Nitrite-Dipstick Negative (Negative); Occult Blood-Urine 10 /ul (Negative); Protein-Dipstick 15 mg/dl (Negative); Urine Bilirubin Dipstick Negative (Negative); Urine Clarity Clear (Clear); Urine Urobilinogen Normal (Normal)
[2024-01-18 14:41] VITALS: BP 169/74; PULSE 55; RESP 16; O2SAT 97
[2024-01-18 15:32] VITALS: BP 151/69; PULSE 55; RESP 16; TEMP 36.6; O2SAT 98
== END 2024-01-18 15:35 | disposition home or self-care (01) ==
PROVIDERS: Emergency Provider Emergency Medicine; PCP Internal Medicine; Visit Provider Emergency Medicine
DX: K57.30 Diverticulosis of large intestine without perforation or abscess without bleeding (principal); I25.10 Atherosclerotic heart disease of native coronary artery without angina pectoris; E78.5 Hyperlipidemia, unspecified; I10 Essential (primary) hypertension; Z79.01 Long term (current) use of anticoagulants; Z79.82 Long term (current) use of aspirin; Z79.899 Other long term (current) drug therapy; Z86.718 Personal history of other venous thrombosis and embolism; Z86.711 Personal history of pulmonary embolism; Z90.89 Acquired absence of other organs; Z95.5 Presence of coronary angioplasty implant and graft; E66.9 Obesity, unspecified
CPT/HCPCS: 74177; 80048; 81001; 85025; 96374; 96375; 96376; 99283; J7030; Q9967; A4216; J2405

== ENCOUNTER → 2024-02-10 | Outpatient (CLI) | payer MEDICARE, SELFPAY ==
--- NOTE | 2024-02-10 08:50 | VDLE_ITS ---
Reason For Study: Acute DVT LLE RIGHT LEFT CFV is compressible, spontaneous, phasic, GSV is normal. competent and demonstrates normal Lt EIV and Lt CFV are DILATED and NON augmentation. COMPRESSIBLE Procedure Lt FV prox/mid is NON DILATED and NON This is a venous duplex using B-mode, color COMPRESSIBLE flow and spectral Doppler. Lt FV distal is compressible. Exam performed in department. POP V is compressible, spontaneous, phasic, A preliminary report was called and/or faxed competent and demonstrates normal to Dr. Martinez. augmentation. T/P Trunk is compressible. PTV is compressible. LT PerV is compressible. VL/Venous Duplex US, Unilateral Interpretation Summary Deep venous thrombosis left external iliac, common femoral, proximal and mid fe moral vein. Patent and compressible left great saphenous vein Normal flow patterns right common femoral vein Refer to the previous extensive dictation of July 29, 2023 Ordering Physician: Maureen Martinez Referring Physician: Maureen Martinez Performed By: Dannielle Raygoza, NAVI, RVT
== END | disposition home or self-care (01) ==
LOC: CVS 08:48
PROVIDERS: PCP Internal Medicine; Referring Provider Internal Medicine; Visit Provider Internal Medicine
DX: I82.412 Acute embolism and thrombosis of left femoral vein (principal)
CPT/HCPCS: 93971

== ENCOUNTER → 2024-03-20 | Outpatient (CLI) | payer MEDICARE, SELFPAY ==
--- NOTE | 2024-03-20 09:04 | VDLE_ITS ---
Reason For Study: ACUTE EMBOLISM AND THROMOSIS (DVT) RIGHT LEFT CFV is compressible, spontaneous, phasic, GSV is normal. competent and demonstrates normal DEIV is DILATED AND NONCOMPRESSIBLE. augmentation. CFV, FV are not dilated and NONCOMPRESSIBLE Procedure C/W DVT. Exam performed in department. POP V is compressible, spontaneous, phasic, The exam was diagnostic. competent and demonstrates normal A preliminary report was called and/or faxed augmentation. to Dr. Martinez @ 09:30 am @ [phone]. T/P Trunk is compressible. PTV is compressible. LT PerV is compressible. VL/Venous Duplex US, Unilateral Interpretation Summary Deep venous thrombosis left external iliac, common femoral, and femoral veins. Patent and compressible left great saphenous vein Normal flow patterns right common femoral vein Ordering Physician: Maureen Martinez Referring Physician: Maureen Martinez Performed By: Yakelin Saenz, NAVI, RVT
== END | disposition home or self-care (01) ==
LOC: CVS 08:56
PROVIDERS: PCP Internal Medicine; Referring Provider Internal Medicine; Visit Provider Internal Medicine
DX: I82.412 Acute embolism and thrombosis of left femoral vein (principal)
CPT/HCPCS: 93971

== ENCOUNTER → 2024-07-20 | Outpatient (CLI) | payer MEDICARE, SELFPAY ==
[2024-07-20 11:06] LABS: PSA,Total- Diagnostic 0.19 ng/mL (0.0-4.0)
== END | disposition home or self-care (01) ==
LOC: LAB 09:27
PROVIDERS: PCP Internal Medicine; Referring Provider Nurse Practitioner; Visit Provider Nurse Practitioner
DX: C61 Malignant neoplasm of prostate (principal)
CPT/HCPCS: 36415; 84153

== ENCOUNTER → 2025-01-11 | Outpatient (CLI) | payer MEDICARE, SELFPAY ==
[2025-01-11 11:00] LABS: PSA,Total- Diagnostic 8.27 ng/mL (0.0-4.0)
== END | disposition home or self-care (01) ==
LOC: LAB 08:33
PROVIDERS: PCP Internal Medicine; Referring Provider Nurse Practitioner; Visit Provider Nurse Practitioner
DX: C61 Malignant neoplasm of prostate (principal)
CPT/HCPCS: 36415; 84153

== ENCOUNTER → 2025-05-11 | Outpatient (CLI) | payer MEDICARE, SELFPAY ==
[2025-05-11 10:12] LABS: PSA,Total- Diagnostic 7.82 ng/mL (0.00-4.00)
== END | disposition home or self-care (01) ==
LOC: LAB 08:53
PROVIDERS: PCP Internal Medicine; Referring Provider Urology; Visit Provider Urology
DX: C61 Malignant neoplasm of prostate (principal)
CPT/HCPCS: 36415; 84153

== ENCOUNTER 2025-08-20 09:58 | Emergency (ER) | payer MEDICARE, SELFPAY ==
[2025-08-20] VITALS (8 sets, daily range): BP systolic 111–136; BP diastolic 69–104; PULSE 54–75; RESP 15–25; TEMP 36.5; O2SAT 96–100; BMI 38.0
--- NOTE | 2025-08-20 10:01 | EKG12_ITS ---
Test Reason : PALP Blood Pressure : */* mmHG Vent. Rate : 74 BPM Atrial Rate : 74 BPM P-R Int : 198 ms QRS Dur : 164 ms QT Int : 434 ms P-R-T Axes : 17 -25 10 degrees QTcB Int : 481 ms Normal sinus rhythm Right bundle branch block Inferior infarct (cited on or before 16-Dec-2022) Abnormal ECG Confirmed by MARCELA WAGENR, XU ([id number]), brands editor ISABEL LUCIANO ([id number]) on 08/23/2025 8:02:28 AM Referred By: Confirmed By: XU MEDRANO MD
--- NOTE | 2025-08-20 10:09 | EDS_ITS ---
HPI History of Present Illness Chief Complaint: Palpitations 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 Premature ventricular contractions Bilateral carotid bruits Family history of coronary artery disease Shortness of breath Prostate cancer Palpitations Home Medications ?Medication ?Instructions ?Recorded ?Last Taken ?Type nitroglycerin 0.4 mg sublingual 0.4 mg sublingual Q5-1 5M PRN chest 12/20/22 07/26/23 Rx tablet pain #25 tabs apixaban 5 mg tablet (Eliquis) 5 mg PO BID #60 tabs Unknown Rx furosemide 40 mg tablet (Lasix) 40 mg PO DAILY #90 tab s 06/03/25 Unknown Rx metoprolol succinate 25 mg 12.5 mg (1/2 x 25 mg) PO DA JONELLE #45 06/03/25 Unknown Rx tablet,extended release 24 hr tabs Held on 06/29/25. Instructions: bradycardia aspirin 325 mg tablet 325 mg PO QDAY 06/29/25 Unkn own History Allergy/AdvReac Type Severity Reaction Status Date / Time rosuvastatin (From Crestor) AdvReac Severe Myalgias Verified 08/20/25 09:58 atorvastatin AdvReac Intermediate Can't Sleep Verified 08/20/25 09:58 Family History Mother , age 58 [place] Myocardial infarction CAD (coronary artery disease) Father , of blood disorder Bleeding disorder Other Family history of coronary artery disease Surgical History History of appendectomy History of radiofrequency ablation procedure for cardiac arrhythmia (09/2016) History of coronary artery stent placement (03/23/16) History of left heart catheterization (03/2016) Social History household members: spouse and none housing: house Smoking Status: Never smoker alcohol intake: never substance use type: does not use caffeine: Yes (about 2 times per week) Type: coffee EXAM Physical Exam Const Vital Signs: 08/20/25 09:58 08/20/25 10:03 08/20/25 10:58 Temperature 97.7 F L Temperature Source Oral Pulse Rate 75 56 L Respiratory Rate 16 16 Respiratory Effort Normal Blood Pressure 133/73 H 132/104 H Blood Pressure Mean 93 113 Pulse Ox 100 97 Oxygen Delivery Method Room Air Room Air 08/20/25 11:00 08/20/25 12:00 08/20/25 13:00 Temperature Temperature Source Pulse Rate 56 L 65 73 Respiratory Rate 16 18 15 Respiratory Effort Blood Pressure 132/104 H 111/82 H 127/79 H Blood Pressure Mean 113 91 95 Pulse Ox 97 96 Oxygen Delivery Method Room Air Room Air 08/20/25 14:00 08/20/25 14:32 08/20/25 14:52 Temperature 97.7 F L Temperature Source Pulse Rate 54 L 59 L Respiratory Rate 25 H 17 Respiratory Effort Blood Pressure 136/69 H 122/73 H 115/79 Blood Pressure Mean 91 89 91 Pulse Ox 100 96 100 Oxygen Delivery Method Room Air Room Air MDM MDM MDM Narrative Medical decision making narrative: HISTORY OF PRESENT ILLNESS: Chief complaint: Palpitations 85-year-old male history of VTE/A-fib on Eliquis, CAD, paroxysmal supraventricular tachycardia, hyperlipidemia, hypertension, prostate cancer presents with palpitations. Per initial triage note EMS report patient notes his chest felt different. Did not feel like it beating. Also notes associated dizziness and shortness of breath. Notes he feels slightly better but still feels off. Denies current chest pain. Denies recent cough fever chills. Notes compliance with Eliquis. Denies bleeding diathesis. Denies vomiting or diarrhea. Denies leg swelling. REVIEW OF SYSTEMS: Pertinent positives: Shortness of breath, palpitations, dizziness Pertinent negatives: As per HPI PHYSICAL EXAM: Nursing triage notes reviewed, Vital signs reviewed Constitutional: please see mdm HENT: MMM Eyes: Pupils equal round and reactive to light, Extraocular muscles intact Neck: No stridor, no JVD, full neck ROM Lungs: Clear to auscultation, No wheezing or rales. No increased work of breathing, no conversational dyspnea, no accessory muscle use, no nasal flaring. No respiratory distress noted Heart: Regular rate and rhythm, No murmurs, No rubs and No gallops, 2+ distal pulses (radial, femoral, posterior tibial) in all extremities Abdomen: Soft, there is no tenderness, rigidity, rebound or guarding, no obvious peritoneal signs, no palpable pulsatile abdominal masses, no auscultated abdominal bruit : No CVAT Extremities: No edema Neuro: Alert and oriented x3, neuro exam at baseline, cranial nerves II through XII are intact. No pain with extraocular muscle movement. There is negative test of skew. 5 of 5 strength in upper and lower extremities in flexion extension. Intact sensation to light touch in upper and lower extremity dermatomes. No truncal or extremity ataxia. No dysdiadochokinesia. Normal gait. 2+ reflexes in upper and lower extremities. No meningeal signs. Negative Babinski. NIH of 0. Skin: No rash or lesions noted MEDICAL DECISION MAKING: Chief Complaint: please see [facility] External records reviewed: Reviewed prior echocardiogram from 2022 which showed ejection fraction of 60%, stage I diastolic dysfunction Factors affecting care: As per HPI Social determinants of health: n denies illicit drugs History obtained from others: n EMS Consults: none [facility] Narrative: Patient was initially hemodynamically stable, afebrile and nontoxic-appearing. Exam without focal cardiopulmonary abnormalities. Abdomen soft and nontender. Nonfocal neurologic exam. I considered the following differential diagnosis: Arrhythmia, anemia, electrolyte disturbance, pneumonia, CHF, ACS I obtained a broad lab and imaging workup to further determine if the patient was suffering from a life-threatening etiology. While I considered posterior cervical CVA given report of dizziness patient has no focal neurologic deficits to suggest this etiology. ALL IMAGES (IF OBTAINED) HAVE BEEN PERSONALLY REVIEWED AND INTERPRETED BY MYSELF. EKG showed normal sinus rhythm rate of 74, left axis deviation, prolonged QTc at 481, no STEMI CBC without leukocytosis, severe anemia, no thrombocytopenia. BMP without evidence of significant electrolyte abnormalities, no anion gap, no acute kidney injury. High-sensitivity troponin is negative, no evidence of myocardial ischemiax2 (ruled out by [facility] [place] high-sensitivity troponin protocol) Lipid panel pending The synthesis of the patient's history, physical exam, prolonged telemetry monitoring revealed no obvious life-limiting etiology. Given reassuring labs images and ED observation patient is appropriate for discharge home with close outpatient follow-up. Specifically recommended a Holter monitor. The patient and/or family, caregivers express understanding. The patient and/or family, caregivers agrees with the plan. Shared decision making: I will have a discussion with the patient and or visitors regarding risk/benefits of further testing or admission. They will be made aware of of the risk/benefits inherent in this decision they will be given the opportunity to voice understanding. Total critical care time today provided was at least 0 minutes. This excludes separately billable procedures. Critical care time (if documented) is secondary to the patient having high probability of clinically significant/life threatening deterioration in the patient's condition which required my urgent intervention. Impression: 1. Palpitations 2. Dizziness 3. Dyspnea Dispo: Discharge home This note was generated with [employer] dictation software. It may contain incorrect words, spelling, and punctuation that were not noted in review of the chart prior to signing. Lab Data Labs: Laboratory Results - last 24 hr 08/20/25 08/20/25 11:48 13:31 WBC 10.0 RBC 5.34 Hgb 15.8 Hct 47.6 MCV 89.1 MCH 29.6 MCHC 33.2 RDW Std Deviation 44.0 H RDW Coeff of Radha 13.5 Plt Count 239 MPV 9.4 Immature Gran % (Auto) 0.400 Neut % (Auto) 60.8 Lymph % (Auto) 25.3 Pratt % (Auto) 10.2 H Eos % (Auto) 2.9 Baso % (Auto) 0.4 Absolute Neuts (auto) 6.1 Absolute Lymphs (auto) 2.54 Nucleated RBC % 0 Sodium 141 Potassium 3.7 Chloride 103 Carbon Dioxide 25.2 Anion Gap 12 BUN 15 Creatinine 1.06 Estim Creat Clear Calc 63.37 Est GFR (MDRD) Non-Af 69 BUN/Creatinine Ratio 14.2 Glucose 107 H Calcium 8.9 Total Bilirubin 0.93 AST 20 ALT 17 Alkaline Phosphatase 73 Troponin T High Sens 12 Troponin T Hi Sens 2 Hr 10 Total Protein 6.8 Albumin 3.9 Globulin 2.9 Albumin/Globulin Ratio 1.3 Discharge Plan Triage Chief Complaint: Palpitations ED Provider: Deondre Cherry Dx/Rx/DC Orders Instructions: ED Heart Palpitations Prescriptions: No Action nitroglycerin 0.4 mg tablet, sublingual 0.4 mg sublingual Q5-15M PRN (Reason: chest pain) Qty: 25 3RF Rx Instructions: do not exceed 3 doses per episode aspirin 325 mg tablet 325 mg PO QDAY Eliquis 5 mg tablet 5 mg PO BID Qty: 60 11RF metoprolol succinate 25 mg tablet extended release 24 hr 12.5 mg PO DAILY Qty: 45 3RF furosemide [Lasix] 40 mg tablet 40 mg PO DAILY Qty: 90 3RF Primary Care Provider: Maureen Martinez Referrals: Maureen Martinez DO [Primary Care Provider, Internal Medicine] Activity Restrictions/Additional Instructions: Thank you for trusting us with your care today! Your labs/images are reassuring. Please return to the emergency department if your symptoms change or worsen. Please follow with your primary care physician for further outpatient evaluation and management. Print Language: [place] Citizen Disposition Disposition: Home, Self Care Discharge Date/Time: 08/20/25 15:03
[2025-08-20 12:03] LABS: Hematocrit 47.6 % (40-54); Hemoglobin 15.8 g/dL (13.0-16.5); Immature Granulocytes Count 0.040 X10^3/uL (0.0-0.0); Mean Corp Hgb Conc 33.2 g/dL (32-36); Mean Corpuscular Volume 89.1 fL (80-94); Mean Platelet Vol. 9.4 fl (6.2-12.0); NRBC Flagged by Analyzer 0 % (0-5); Platelet Count 239 K/mm3 (150-450); RBC Distribution Width CV 13.5 % (11.6-14.6); RBC Distribution Width SD 44.0 fl (35.1-43.9); Red Blood Count 5.34 M/mm3 (4.6-6.2); White Blood Count 10.0 K/mm3 (4.4-11.0)
[2025-08-20 12:58] LABS: AST(SGOT) 20 U/L (<=37); Alanine Aminotransfer ALT/SGPT 17 U/L (<=46); Albumin, Serum 3.9 g/dL (3.4-4.8); Alkaline Phosphatase 73 U/L (40-129); Anion Gap 12 (5-15); BUN 15 mg/dL (4-19); BUN/Creat Ratio 14.2 RATIO (10-20); Calcium,Total 8.9 mg/dL (7.6-11.0); Carbon Dioxide 25.2 mmol/L (21.0-32.0); Chloride 103 mmol/L (98-108); Estimated Creatinine Clearance 63.37 ml/min (50-250); Globulin 2.9 g/dL (2.2-4.2); Glucose 107 mg/dL (70-99); Potassium 3.7 mmol/L (3.3-5.1); Troponin T High Sensitivity 12 ng/L (<=22)
[2025-08-20 14:13] LABS: Troponin T High Sens 2 HR 10 ng/L (<=22)
[2025-08-20 15:57] LABS: Cholesterol 206 mg/dL (<=200); Low Density Lipoprotein Calc. 146 mg/dL; Triglycerides 124 mg/dL; Very Low Density Lipoprotein 25 mg/dL (5-40); cholesterol:hdl ratio screen 5.92
== END 2025-08-20 15:03 | disposition home or self-care (01) ==
PROVIDERS: Emergency Provider Emergency Medicine; PCP Internal Medicine; Visit Provider Emergency Medicine
DX: R00.2 Palpitations (principal); J44.9 Chronic obstructive pulmonary disease, unspecified; I25.10 Atherosclerotic heart disease of native coronary artery without angina pectoris; R06.00 Dyspnea, unspecified; R42 Dizziness and giddiness; I25.2 Old myocardial infarction; Z86.718 Personal history of other venous thrombosis and embolism; Z86.16 Personal history of COVID-19; Z95.5 Presence of coronary angioplasty implant and graft
CPT/HCPCS: 80053; 80061; 84484; 85025; 93005; 99285; A4216

== ENCOUNTER → 2025-08-26 | Outpatient (CLI) | payer MEDICARE, SELFPAY ==
[2025-08-26 09:32] LABS: Hematocrit 46.8 % (40-54); Hemoglobin 15.7 g/dL (13.0-16.5); Immature Granulocytes Count 0.030 X10^3/uL (0.0-0.0); Mean Corp Hgb Conc 33.5 g/dL (32-36); Mean Corpuscular Volume 88.1 fL (80-94); Mean Platelet Vol. 9.7 fl (6.2-12.0); NRBC Flagged by Analyzer 0 % (0-5); Platelet Count 243 K/mm3 (150-450); RBC Distribution Width CV 13.6 % (11.6-14.6); RBC Distribution Width SD 44.0 fl (35.1-43.9); Red Blood Count 5.31 M/mm3 (4.6-6.2); White Blood Count 10.3 K/mm3 (4.4-11.0)
== END | disposition home or self-care (01) ==
LOC: LAB 08:19
PROVIDERS: PCP Internal Medicine; Referring Provider Internal Medicine; Visit Provider Internal Medicine
DX: I49.3 Ventricular premature depolarization (principal); E78.5 Hyperlipidemia, unspecified
CPT/HCPCS: 36415; 85025

== ENCOUNTER → 2025-09-01 | Outpatient (CLI) | payer MEDICARE, SELFPAY ==
--- NOTE | 2025-09-01 10:55 | CDU_ITS ---
Reason For Study Reason For Study: Bilateral carotid artery stenosis Rt. Velocities/BP Lt. Velocities/BP Prox CCA 79.8/16.0 cm/sec. Prox CCA 68.8/10.6 cm/sec. Mid CCA 80.9/12.7 cm/sec. Mid CCA 57.8/9.5 cm/sec. Dist CCA 60.0/9.5 cm/sec. Dist CCA 52.3/10.6 cm/sec. Prox ICA 83.1/21.5 cm/sec. Prox ICA 47.8/13.9 cm/sec. Mid ICA 56.8/15.7 cm/sec. Mid ICA 53.2/15.7 cm/sec. Dist ICA 39.6/12.5 cm/sec. Dist ICA 53.2/14.8 cm/sec. Rt. ICA/CCA = 1.0. Lt. ICA/CCA = 0.9. Prox ECA 56.3/6.2 cm/sec. Prox ECA 54.1/3.2 cm/sec. Lt. Vert. 45.7/11.7 cm/sec. Right Extracranial There is homogeneous, smooth atherosclerotic plaque noted in the right common carotid artery. There is heterogeneous, irregular atherosclerotic plaque noted in the right internal carotid artery. There is intimal thickening but no significant atherosclerotic plaque noted in the right external carotid artery. Abnormal waveform noted in the right vertebral artery. Left Extracranial There is homogeneous, smooth atherosclerotic plaque noted in the left common carotid artery. There is heterogeneous, irregular atherosclerotic plaque noted in the left internal carotid artery. There is intimal thickening but no significant atherosclerotic plaque noted in the left external carotid artery. Antegrade flow is noted in the left vertebral artery. Procedure Carotid Duplex [id number]. This is a Carotid Duplex examination using B-mode, color flow and specral Doppler. Exam performed in department. VL/Carotid Duplex Ultrasound Interpretation Summary Mild (<50%) stenosis right extracranial internal carotid. Mild (<50%) stenosis left extracranial internal carotid. The Right vertebral flow is retrograde. The Left vertebral is patent and antegrade. Ordering Physician: Maureen Martinez Referring Physician: Maureen Martinez Performed By: Nina Bansal RVT
== END | disposition home or self-care (01) ==
LOC: CVS 10:55
PROVIDERS: PCP Internal Medicine; Referring Provider Internal Medicine; Visit Provider Internal Medicine
DX: I65.23 Occlusion and stenosis of bilateral carotid arteries (principal)
CPT/HCPCS: 93880

== ENCOUNTER → 2025-09-14 | Outpatient (CLI) | payer MEDICARE, SELFPAY ==
[2025-09-14 11:03] LABS: PSA,Total- Diagnostic 11.00 ng/mL (0.00-4.00)
== END | disposition home or self-care (01) ==
PROVIDERS: PCP Internal Medicine; Referring Provider Urology; Visit Provider Urology
DX: C61 Malignant neoplasm of prostate (principal)
CPT/HCPCS: 36415; 84153

== ENCOUNTER → 2025-09-29 | Outpatient (CLI) | payer MEDICARE, SELFPAY | END | disposition home or self-care (01) | LOC: PSN 08:28 | PROVIDERS: PCP Internal Medicine; Referring Provider Internal Medicine; Visit Provider Internal Medicine | DX: R42 Dizziness and giddiness (principal) | CPT/HCPCS: 93225; 93226 ==

== ENCOUNTER → 2025-11-04 | Outpatient (CLI) | payer MEDICARE, SELFPAY ==
--- NOTE | 2025-11-04 09:50 | ECHOCS_ITS ---
Reason For Study Reason For Study: PVC Procedure This was a 2D Doppler, Color Flow transthoracic echocardiogram. The study was technically difficult. Contrast injection was performed. Exam performed in department. Left Ventricle Normal LV size. The left ventricular ejection fraction is 50 %. Stage 1 diastolic dysfunction. No regional wall motion abnormalities noted. Right Ventricle Normal RV size. Normal systolic function. Atria Normal left atrium. Normal right atrium. Tricuspid Valve Normal tricuspid valve. Mild (1+) tricuspid valve insufficiency. Pulmonary artery systolic pressure is 26 mmHg. Pulmonic Valve Normal pulmonic valve. Great Vessels Mildly dilated aortic root. The pulmonary artery is normal size. Inferior vena cava collapse with respiration. Pericardium/Pleural No pericardial effusion. Medication 24 gauge I.V. with prn adaptor inserted into left arm. Diluted definity 2ml given slow IV push to enhance endocardial definition. MMode/2D Measurements & Calculations LVIDd: 5.7 cm IVSd: 0.89 cm asc Aorta Diam: 4.2 cm LVIDs: 4.1 cm LVPWd: 0.86 cm RVDd: 3.8 cm FS: 27.5 % LAV(MOD-bp): 53.9 ml LVAd ap4: 31.4 cm2 LVAd ap2: 26.4 cm2 LAV(MOD-bp) Indexed: 24.4 ml/m2 LVLd ap4: 8.0 cm LVLd ap2: 7.0 cm LAV(MOD-sp2): 50.8 ml EDV(MOD-sp4): 99.7 ml EDV(MOD-sp2): 81.3 ml LAV(MOD-sp4): 51.0 ml EDV(sp4-el): 105.3 ml EDV(sp2-el): 84.1 ml LVAs ap4: 21.7 cm2 LVAs ap2: 18.2 cm2 LVLs ap4: 7.5 cm LVLs ap2: 5.9 cm ESV(MOD-sp4): 51.9 ml ESV(MOD-sp2): 46.7 ml ESV(sp4-el): 53.6 ml ESV(sp2-el): 47.6 ml EF(MOD-sp4): 47.9 % EF(MOD-sp2): 42.6 % EF(sp4-el): 49.1 % SV(MOD-sp4): 47.8 ml SV(MOD-sp2): 34.6 ml SV(sp4-el): 51.7 ml SI(MOD-sp4): 21.6 ml/m2 SI(MOD-sp2): 15.7 ml/m2 LA A4 area: 17.5 cm2 LA dimension(2D): 3.8 cm RA A4 area: 14.6 cm2 TAPSE: 2.0 cm Time Measurements MV dec time: 0.23 sec Doppler Measurements & Calculations MV E max ousmane: 84.3 cm/sec Lat Peak E' Ousmane: 10.3 cm/sec Med Peak E' Ousmane: 6.1 cm/sec MV A max ousmane: 108.4 cm/sec E/E' lat: 8.2 E/E' med: 13.8 MV E/A: 0.78 Ao V2 max: 170.1 cm/sec LV V1 max: 85.2 cm/sec MV dec slope: 383.9 cm/sec2 Ao max P.6 mmHg LV V1 max P.9 mmHg Ao V2 mean: 121.5 cm/sec LV V1 mean P.7 mmHg Ao mean P.7 mmHg LV V1 mean: 62.3 cm/sec Ao V2 VTI: 43.3 cm LV V1 VTI: 22.3 cm AV (velocity ratio): 0.52 PA V2 max: 70.5 cm/sec TR max ousmane: 241.2 cm/sec TR max P.3 mmHg ECHO/Echo Complete W/ Contrast Interpretation Summary Normal LV size. The left ventricular ejection fraction is 50 %. Stage 1 diastolic dysfunction. Mildly dilated aortic root. Contrast injection was performed. Ordering Physician: Curt Raygoza Referring Physician: Maureen Martinez Performed By: Yvonne Painter RDCS
== END | disposition home or self-care (01) ==
LOC: CVS 09:49
PROVIDERS: PCP Internal Medicine; Referring Provider Nurse Practitioner Family; Visit Provider Nurse Practitioner Family
DX: I49.3 Ventricular premature depolarization (principal)
CPT/HCPCS: 93306; Q9957; A4216; C8929